=== PATIENT | female | born 1985 | race Caucasian/White ===

== ENCOUNTER → 2019-08-31 | Outpatient (CLI) | payer OTHER, SELFPAY ==
[2019-08-11 08:08] VITALS: BMI 27.4
== END | disposition home or self-care (01) ==
LOC: PSN 09:08
DX: R00.2 Palpitations (principal)
CPT/HCPCS: 93225; 93226

== ENCOUNTER 2020-05-01 08:39 | Outpatient (RCR) | payer OTHER, SELFPAY ==
[2019-08-11 08:08] VITALS: BMI 27.4
== END 2020-05-01 09:00 | disposition home or self-care (01) ==
LOC: EMPH 08:39
PROVIDERS: Visit Provider Family Medicine Geriatric Medicine
DX: Z11.59 Encounter for screening for other viral diseases (principal)
CPT/HCPCS: 87635; U0003

== ENCOUNTER 2020-05-31 19:00 | Outpatient (RCR) | payer OTHER, SELFPAY ==
[2019-08-11 08:08] VITALS: BMI 27.4
== END 2020-06-02 23:59 ==
LOC: EMPH 19:00
PROVIDERS: Visit Provider Family Medicine Geriatric Medicine
DX: Z03.818 Encounter for observation for suspected exposure to other biological agents ruled out (principal)
CPT/HCPCS: 87426

== ENCOUNTER 2020-06-27 10:10 | Outpatient (RCR) | payer OTHER, SELFPAY ==
[2019-08-11 08:08] VITALS: BMI 27.4
== END 2020-07-02 23:59 ==
LOC: EMPH 10:10
PROVIDERS: Referring Provider Family Medicine Geriatric Medicine; Visit Provider Family Medicine Geriatric Medicine
DX: Z03.818 Encounter for observation for suspected exposure to other biological agents ruled out (principal)
CPT/HCPCS: 87426

== ENCOUNTER 2020-07-19 11:01 | Outpatient (RCR) | payer OTHER, SELFPAY ==
[2019-08-11 08:08] VITALS: BMI 27.4
== END 2020-08-02 23:59 ==
LOC: EMPH 11:01
PROVIDERS: Referring Provider Family Medicine Geriatric Medicine; Visit Provider Family Medicine Geriatric Medicine
DX: Z03.818 Encounter for observation for suspected exposure to other biological agents ruled out (principal)
CPT/HCPCS: 87426

== ENCOUNTER 2020-08-20 08:45 | Outpatient (RCR) | payer OTHER, SELFPAY ==
[2019-08-11 08:08] VITALS: BMI 27.4
== END 2020-09-02 23:59 ==
LOC: EMPH 08:45
PROVIDERS: Referring Provider Family Medicine Geriatric Medicine; Visit Provider Family Medicine Geriatric Medicine
DX: Z03.818 Encounter for observation for suspected exposure to other biological agents ruled out (principal)
CPT/HCPCS: 87426

== ENCOUNTER 2020-09-30 08:00 | Outpatient (RCR) | payer OTHER, SELFPAY ==
[2019-08-11 08:08] VITALS: BMI 27.4
== END 2020-09-30 19:00 | disposition home or self-care (01) ==
LOC: EMPH 08:00
PROVIDERS: Referring Provider Family Medicine Geriatric Medicine; Visit Provider Family Medicine Geriatric Medicine
DX: Z03.818 Encounter for observation for suspected exposure to other biological agents ruled out (principal)
CPT/HCPCS: 87426

== ENCOUNTER → 2021-04-10 15:38 | Outpatient (CLI) | payer OTHER, SELFPAY ==
--- NOTE | 2021-04-10 15:46 | US_ITS ---
STUDY: ULTRASOUND OF THE FEMALE PELVIS - COMPLETE REASON FOR EXAM: Female, 36 years old. SPOTTING BETWEEN MENSES LMP: 03/25/2021. TECHNIQUE: Transabdominal and Transvaginal TECHNICAL QUALITY: Adequate. COMPARISON: None. FINDINGS: The uterus is retroverted and is in a midline position. The uterus measures 8.9 x 5.8 x 3.6 cm. There is a Nabothian cyst of the cervix. The endometrium measures 13.3 mm in thickness, and is hyperechoic. There is no demonstrated endometrial mass. There is no demonstrated myometrial mass. I.U.D. - The patient does not have an I.U.D. The right ovary is visualized. The right ovary measures 2.8 x 1.9 x 1.7 cm. There is no right ovarian cyst or ovarian mass. There is no visualized right adnexal mass or complex lesion. There is normal arterial and normal venous vascularity. The left ovary is visualized. The left ovary measures 3.2 x 2.4 x 2.0 cm. Within the left ovary there is a round anechoic structure consistent with a simple cyst measuring 1.9 x 1.0 x 1.6 cm. There is no visualized left adnexal mass or complex lesion. There is normal arterial and normal venous vascularity. There is minimal fluid in the cul-de-sac. The pre void volume of the bladder was 295 ml. US/Transvaginal Non- IMPRESSION: Unremarkable female pelvis ultrasound. Electronically Signed: Emilia Hernandez MD at 2:04 EDT , Service support ,
--- NOTE | 2021-04-10 15:46 | US_ITS ---
STUDY: ULTRASOUND OF THE FEMALE PELVIS - COMPLETE REASON FOR EXAM: Female, 36 years old. SPOTTING BETWEEN MENSES LMP: 03/25/2021. TECHNIQUE: Transabdominal and Transvaginal TECHNICAL QUALITY: Adequate. COMPARISON: None. FINDINGS: The uterus is retroverted and is in a midline position. The uterus measures 8.9 x 5.8 x 3.6 cm. There is a Nabothian cyst of the cervix. The endometrium measures 13.3 mm in thickness, and is hyperechoic. There is no demonstrated endometrial mass. There is no demonstrated myometrial mass. I.U.D. - The patient does not have an I.U.D. The right ovary is visualized. The right ovary measures 2.8 x 1.9 x 1.7 cm. There is no right ovarian cyst or ovarian mass. There is no visualized right adnexal mass or complex lesion. There is normal arterial and normal venous vascularity. The left ovary is visualized. The left ovary measures 3.2 x 2.4 x 2.0 cm. Within the left ovary there is a round anechoic structure consistent with a simple cyst measuring 1.9 x 1.0 x 1.6 cm. There is no visualized left adnexal mass or complex lesion. There is normal arterial and normal venous vascularity. There is minimal fluid in the cul-de-sac. The pre void volume of the bladder was 295 ml. US/Pelvic (Non ) IMPRESSION: Unremarkable female pelvis ultrasound. Electronically Signed: Emilia Hernandez MD at 2:04 EDT , Service support ,
== END ==
PROVIDERS: Referring Provider Nurse Practitioner Family; Visit Provider Nurse Practitioner Family
DX: N92.3 Ovulation bleeding (principal)
CPT/HCPCS: 76830; 76856

== ENCOUNTER 2021-11-09 00:37 | Emergency (ER) | payer OTHER, SELFPAY ==
[2021-11-09 00:39] VITALS: BP 155/91; PULSE 113; RESP 15; TEMP 36.3; O2SAT 97; BMI 31.4
--- NOTE | 2021-11-09 00:50 | EKG12_ITS ---
Test Reason : DYSRHYTHMIA Blood Pressure : / mmHG Vent. Rate : 115 BPM Atrial Rate : 115 BPM P-R Int : 138 ms QRS Dur : 070 ms QT Int : 318 ms P-R-T Axes : 069 056 023 degrees QTc Int : 439 ms Sinus tachycardia Nonspecific ST abnormality Abnormal ECG Confirmed by YESI VALERIO, KELLY ([id number]), digital editor KEY UMAÑA ([id number]) on 11/13/2021 10:30:56 AM Referred By: TERENCE Confirmed By:KELLY KEY MD
--- NOTE | 2021-11-09 00:50 | EX.ED.DYSGE1 ---
HPI History of Present Illness Chief Complaint: Palpitations Detail of Chief Complaint: Racing heart that started around 11 PM Informant: patient Narrative Narrative: Patient presents the emergency department complaint of racing heart that started around 11 PM. Patient states that she awoke from sleep with chills and noted that her house was somewhat cold. She took a hot shower and then noticed that her heart was racing and was going about 100 2040 bpm and she could feel some discomfort in her left side of her neck and some mild pressure in her chest. Patient states she had an appointment with her primary care physician today and her blood pressure was a little bit elevated 138/90 and normally she does not have elevated blood pressure. Patient also has been suffering for increased GERD symptoms so she started taking Carafate today. Patient otherwise denies recent illness although she had a head cold about 3 weeks ago and tested negative for Covid several times. Patient denies urinary symptoms. She denies recent travel or surgery. She denies history of PE or DVT. Prior similar symptoms: No PFSH PFS Medical History (Updated 11/09/21 @ 02:[address] Stormy Diallo, DO) Environmental allergies Home Medications cetirizine 10 mg capsule 10 mg PO DAILY 08/11/19 [History Last Taken Unknown] famotidine 40 mg tablet 40 mg PO DAILY 08/11/19 [History Last Taken Unknown] calcium acetate-magnesium carb 500 tab PO DAILY 11/09/21 [History Last Taken Unknown] cyanocobalamin-cobamamide [B12] jp SUBLINGUAL DAILY 11/09/21 [History Last Taken Unknown] melatonin 5 mg PO DAILY 11/09/21 [History Last Taken Unknown] Allergy/AdvReac Type Severity Reaction Status Date / Time codeine Allergy Unknown Verified 11/09/21 00:41 Social History (Updated 08/11/19 @ 09:06 by Cuong CARUSO, PA) Smoking Status: Never smoker ROS ROS ED Constitutional Constitutional ED: Reports systems reviewed and no addt'l complaints, except as documented; Denies body ache(s), change in weight or chills Eyes Eyes: Denies acute decrease in peripheral vision, change in vision, double vision or loss of vision ENT ENT ED: Reports none; Denies ear pain, lip swelling, loss taste/smell, neck pain, otalgia or sore throat Cardiovascular Cardiovascular: Reports none, chest pain and racing heartbeat; Denies abdominal pain, chest pain with activity, leg edema, lightheadedness, palpitations, rapid heart rate or syncope Respiratory/Chest Respiratory/Chest: Reports none; Denies change in mental status, dry cough, dyspnea, hemoptysis, shortness of breath at rest or shortness of breath with exertion Gastrointestinal Gastrointestinal: Reports none; Denies abdominal pain, change in stool character, diarrhea, hematemesis, hematochezia, melena, rectal bleeding or vomiting Genitourinary Genitourinary ED: Reports none; Denies abdominal discomfort, anuria, dysuria, genital pain or polyuria Musculoskeletal Musculoskeletal: Reports none; Denies arthralgias, back pain, difficulty walking, extremity pain, muscle weakness or myalgias Integumentary Reports none; Denies abscess or rash Neurologic Neurologic: Reports none; Denies abnormal gait, confusion, focal weakness, frequent falls, headache(s), loss of vision, numbness, paresthesias, radicular pain, vertigo or weakness Psychiatric Psychiatric: Reports systems reviewed and no addt'l complaints, except as documented and none; Denies behavioral changes, confusion, difficulty concentrating, hallucinations, suicidal ideation, tactile hallucinations or visual hallucinations Endocrine Endocrinology: Denies none, cold intolerance, excessive sweating, fatigue or heat intolerance Hematologic/Lymphatic Hematologic/Lymphatic: Reports none; Denies anemia, easy bleeding or easy bruising Allergic/Immunologic Allergic/Immunologic ED: Denies as per HPI, none, lip swelling, mouth swelling, throat swelling, tongue swelling or hives EXAM Physical Exam Const Vital Signs: 11/09/21 00:39 11/09/21 00:41 11/09/21 02:03 Temperature 97.3 F L Temperature Source Temporal Pulse Rate 113 H 68 Respiratory Rate 15 16 Respiratory Effort Normal Non-Labored Blood Pressure 155/91 H 121/86 H Blood Pressure Mean 112 97 Pulse Ox 97 98 Oxygen Delivery Method Room Air Room Air Positive well nourished and well developed General Appearance ED: well developed and NAD HEENT Reports TM's clear and moist mucous membranes normocephalic and atraumatic; Negative for trauma or tenderness Tympanic Membrane ED: Yes TM's clear Eyes PERRL and EOMs intact bilaterally General Eye ED: Negative for pale conjunctiva or scleral icterus Neck no lymphadenopathy, supple and no JVD General: Negative for tenderness Chest Wall inspection of chest normal and palpation of chest normal Chest: Negative for tenderness Resp normal respiratory effort and clear to auscultation bilaterally Effort and Inspection: Negative for respiratory distress or pain with movement Auscultation: Negative for rhonchi, wheezes or diminished lung sounds Cardio regular rhythm, S1 normal heart sound, S2 normal heart sound and no murmurs Rate: tachycardic Peripheral Pulses: pulses 2+ throughout GI normal to inspection, nondistended, normoactive bowel sounds, soft to palpation, non-tender, non-distended and no masses Back/Spine no CVA tenderness and no thoracic nor lumbar tenderness Extremity normal to inspection General Extremety ED: Negative for edema General Extremity: Negative for edema Neuro oriented x3, CN's II-XII intact bilaterally, no sensory deficits noted and gait normal Sensorium / Orientation: awake, alert, oriented to person, oriented to place and oriented to time Motor Exam: strength 5/5 throughout and strength abnormal Psych mental status grossly normal Skin no rashes or lesions noted and no wounds MDM MDM MDM Narrative Medical decision making narrative: Line established on arrival. Patient placed on a pvc monitor. EKG obtained showed a sinus tachycardia with a rate of 116 bpm. Blood work was significant for low potassium of 3.1 for which I did give her 40 mEq of potassium chloride p.o. Patient also noted to have an elevated TSH so I suspect some hypothyroidism. D-dimer was normal. Troponin was normal. Urinalysis and hCG were normal. At this point recommended she follow-up with her primary care physician regarding the thyroid findings as she may need more investigation and possible medical treatment for hypothyroidism. I also asked that she have her potassium repeated again in about a week. Etiology of her tachycardia at this point unclear. I feel likely this is a sinus tachycardia and not a dangerous rhythm. Lab Data Attestation: I reviewed the patient's lab results. Labs: Laboratory Results - last 24 hr 11/09/21 11/09/21 11/09/21 00:52 00:52 00:52 WBC 7.9 RBC 4.72 Hgb 14.4 Hct 41.7 MCV 88.3 MCH 30.5 MCHC 34.5 RDW Std Deviation 40.5 RDW Coeff of Kelvin 12.3 Plt Count 218 MPV 11.0 Immature Gran % (Auto) 0.400 Neut % (Auto) 60.5 Lymph % (Auto) 29.1 Menard % (Auto) 6.9 Eos % (Auto) 2.6 Baso % (Auto) 0.5 Absolute Neuts (auto) 4.8 Absolute Lymphs (auto) 2.31 Nucleated RBC % 0 D-Dimer Quant (PE/DVT) 0.42 Sodium 136 Potassium 3.1 L Chloride 105 Carbon Dioxide 23.0 Anion Gap 8 BUN 11 Creatinine 0.87 Estim Creat Clear Calc 81.99 Est GFR (MDRD) Af Amer 96 Est GFR (MDRD) Non-Af 79 BUN/Creatinine Ratio 12.7 Glucose 107 H Calcium 9.6 Troponin I High Sens 8 TSH Serum , Qual Urine Color Urine Clarity Urine pH Ur Specific [place] Urine Protein Urine Glucose (UA) Urine Ketones Urine Occult Blood Urine Nitrite Urine Bilirubin Urine Urobilinogen Ur Leukocyte Esterase Urine RBC Urine WBC Ur Squamous Epith Cells Urine Bacteria Urine Mucus 11/09/21 11/09/21 11/09/21 00:52 00:52 01:00 WBC RBC Hgb Hct MCV MCH MCHC RDW Std Deviation RDW Coeff of Kelvin Plt Count MPV Immature Gran % (Auto) Neut % (Auto) Lymph % (Auto) [place]ard % (Auto) Eos % (Auto) Baso % (Auto) Absolute Neuts (auto) Absolute Lymphs (auto) Nucleated RBC % D-Dimer Quant (PE/DVT) Sodium Potassium Chloride Carbon Dioxide Anion Gap BUN Creatinine Estim Creat Clear Calc Est GFR (MDRD) Af Amer Est GFR (MDRD) Non-Af BUN/Creatinine Ratio Glucose Calcium Troponin I High Sens TSH 9.23 H Serum , Qual NEGATIVE Urine Color Yellow Urine Clarity Clear Urine pH 6.5 Ur Specific [place] 1.005 Urine Protein Negative Urine Glucose (UA) Normal Urine Ketones 15 H Urine Occult Blood Negative Urine Nitrite Negative Urine Bilirubin Negative Urine Urobilinogen Normal Ur Leukocyte Esterase Negative Urine RBC 0 SEEN Urine WBC 0 SEEN Ur Squamous Epith Cells 0-5 SEEN Urine Bacteria 1+ Urine Mucus 0 SEEN EKG Initial EKG: Attestation: I personally reviewed and interpreted this EKG as follows: Comments: Sinus tachycardia with a ventricular rate of [address] changes Discharge Plan Triage Chief Complaint: Palpitations ED Provider: Stormy Diallo Dx/Rx/DC Orders Clinical Impression: Atrial tachycardia, Hypothyroidism, Acute hypokalemia Instructions: ED Hypothyroidism, ED Tachycardia: PAT Prescriptions: No Action famotidine [Pepcid] 40 mg tablet 40 mg PO DAILY RF: 0 Zyrtec 10 mg capsule 10 mg PO DAILY RF: 0 calcium acetate-magnesium carb 300-300 mg Tablet 500 tab PO DAILY RF: 0 melatonin 5 mg Tablet 5 mg PO DAILY RF: 0 B12 5,000-100 mcg Lozenge SUBLINGUAL DAILY RF: 0 Referrals: CHUCKY MCNAMARA [Other] Activity Restrictions/Additional Instructions: See your primary care physician within next 5 to 7 days to have a repeat potassium level and further evaluation for hypothyroidism Disposition Disposition: Home, Self Care
[2021-11-09 01:06] LABS: Mucous, Urine 0 SEEN /hpf (<or=2+); Red Blood Cells-Urine 0 SEEN /hpf (0-5); White Blood Cells 0 SEEN /hpf (0-5)
[2021-11-09 01:07] LABS: Absolute Lymphocyte Count 2.31 X10^3/uL (0.83-4.51); Absolute Neutrophil Count 4.8 X10^3/uL (2.0-7.7); Basophil# 0.04 X10^3/uL; Basophil% 0.5 % (0-1); Eosinophil# 0.21 X10^3/uL; Eosinophils% 2.6 % (0-5); Hematocrit 41.7 % (37-47); Hemoglobin 14.4 g/dL (12.0-15.0); Lymphocyte # 2.31 X10^3/ul (0.83-4.51); Lymphocyte % 29.1 % (19-41); Mean Corp Hgb Conc 34.5 g/dL (32-36); Mean Corpuscular Hgb 30.5 pg (27.0-32.0); Mean Corpuscular Volume 88.3 fL (81-99); Monocyte# 0.55 X10^3/uL; Monocyte% 6.9 % (0-10); NRBC Flagged by Analyzer 0 % (0-5); Neutrophil % 60.5 % (47-70); Platelet Count 218 K/mm3 (150-450); RBC Distribution Width CV 12.3 % (11.6-14.6); RBC Distribution Width SD 40.5 fl (35.1-43.9); Red Blood Count 4.72 M/mm3 (4.2-5.4); White Blood Count 7.9 K/mm3 (4.4-11.0)
[2021-11-09] MEDS: 0.9% Normal Saline 1,000 ML 150 ML IV (01:07)
[2021-11-09 01:09] LABS: Color, Urine Yellow (Yellow); Glucose, Dipstick Normal (Normal); Ketone-Dipstick 15 mg/dl (Negative); Leukocyte Esterase-Dipstick Negative /ul (Negative); Nitrite-Dipstick Negative (Negative); Occult Blood-Urine Negative /ul (Negative); Protein-Dipstick Negative (Negative); Specific Gravity, Urine 1.005 (1.002-1.030); Urine Bilirubin Dipstick Negative (Negative); Urine Clarity Clear (Clear); Urine Urobilinogen Normal (Normal); Urine pH 6.5 (5.0 - 8.0)
[2021-11-09 01:19] LABS: D-Dimer Quantitative (DVT/PE) 0.42 FEU/ug/m (0.27-0.49)
[2021-11-09 01:25] LABS: Anion Gap 8 (5-15); BUN 11 mg/dL (7-18); BUN/Creat Ratio 12.7 RATIO (10-20); Calcium,Total 9.6 mg/dL (8.5-10.1); Chloride 105 mmol/L (98-107); Creatinine, Serum 0.87 mg/dL (0.55-1.02); EST Glomerular Filtration Rate 79 mL/min (>60); Est Glom Filt Rate - Afr Amer 96 mL/min (>60); Estimated Creatinine Clearance 81.99 ml/min; Glucose 107 mg/dL (74-106); Potassium 3.1 mmol/L (3.5-5.1); Sodium Level 136 mmol/L (136-145); Troponin-I HS 8 pg/mL (3.0-54.0)
[2021-11-09 01:36] LABS: Bacteria 1+ /hpf (None Seen); Squamous Epithelial Cells - UA 0-5 SEEN /hpf (5-10)
[2021-11-09 01:37] LABS: Internal QC Validated? YES +Cl - CLEAR BKGD; Pregnancy, Serum, hCG Quali. NEGATIVE Negative
[2021-11-09 01:53] LABS: Thyroid Stim Hormone (TSH) 9.23 uIU/mL (0.358-3.74)
[2021-11-09 02:03] VITALS: BP 121/86; PULSE 68; RESP 16; O2SAT 98
[2021-11-09] MEDS: Potassium Chloride Oral Tablet 20 MEQ 40 MEQ PO (02:04)
[2021-11-09 02:13] VITALS: BP 121/66; PULSE 101; RESP 18; O2SAT 97
== END 2021-11-09 02:15 | disposition home or self-care (01) ==
PROVIDERS: Emergency Provider Emergency Medicine; Visit Provider Emergency Medicine
DX: I47.1 Supraventricular tachycardia (principal); E03.9 Hypothyroidism, unspecified; E87.6 Hypokalemia
CPT/HCPCS: 80048; 81001; 84443; 84484; 84703; 85025; 85379; 93005; 96360; 96361; 99284; J7030; A4216

== ENCOUNTER → 2021-11-12 10:42 | Outpatient (CLI) | payer OTHER, SELFPAY ==
[2021-11-12 11:50] LABS: Thyroid Stim Hormone (TSH) 2.59 uIU/mL (0.358-3.74)
[2021-11-12 11:53] LABS: Vitamin B12 > 2000 pg/mL (211-911); Vitamin D,25 Hydroxy 71.6 ng/mL
== END ==
DX: R00.2 Palpitations (principal); Z13.21 Encounter for screening for nutritional disorder; Z13.29 Encounter for screening for other suspected endocrine disorder
CPT/HCPCS: 36415; 82306; 82607; 83735; 84443

== ENCOUNTER → 2021-12-04 | Outpatient (CLI) | payer OTHER, SELFPAY ==
[2021-12-04 12:12] LABS: CRP < 2.90 mg/L (0.0-3.0); Potassium 3.8 mmol/L (3.5-5.1)
[2021-12-04 12:18] LABS: Erythrocyte Sedimentation Rate 11 mm/hr (0-30)
[2021-12-05 15:09] LABS: Anti-Centromere B Ab <0.2 AI (0.0-0.9); Anti-Chromatin <0.2 AI (0.0-0.9); Anti-Jo <0.2 AI (0.0-0.9); Anti-Scleroderma-70 AB <0.2 AI (0.0-0.9); RNP Ab <0.2 AI (0.0-0.9); SJOGREN'S Anti-SS-A test < 0.2 AI (0.0-0.9); SJOGREN'S Anti-SS-B test < 0.2 AI (0.0-0.9); Smith Ab <0.2 AI (0.0-0.9)
[2021-12-05 17:19] LABS: Anti-dsDNA Ab 1 IU/mL (0-9)
[2021-12-06 16:19] LABS: Endomysial Antibody IgA Positive (Negative); Immunoglobulin A 135 mg/dL (87-352)
[2021-12-06 20:07] LABS: Gastrin, Serum 73 pg/mL (0-115); t-Transglutaminase IgA 8 U/mL (0-3)
== END | disposition home or self-care (01) ==
PROVIDERS: Referring Provider Nurse Practitioner Adult Health; Visit Provider Nurse Practitioner Adult Health
DX: K52.9 Noninfective gastroenteritis and colitis, unspecified (principal); K21.9 Gastro-esophageal reflux disease without esophagitis; R10.9 Unspecified abdominal pain
CPT/HCPCS: 36415; 82784; 82941; 83516; 84132; 85652; 86140; 86225; 86235; 86255

== ENCOUNTER → 2021-12-10 | Outpatient (CLI) | payer OTHER, SELFPAY ==
[2021-12-12 02:07] LABS: H. PYLORI STOOL AG Negative (Negative)
[2021-12-12 10:46] LABS: Giardia Lamblia, Stool EIA Negative (Negative)
[2021-12-13 13:41] LABS: Calprotectin, Stool 33 ug/g (0-120)
== END | disposition home or self-care (01) ==
LOC: LABSPEC 08:16
PROVIDERS: Referring Provider Nurse Practitioner Adult Health; Visit Provider Nurse Practitioner Adult Health
DX: K52.9 Noninfective gastroenteritis and colitis, unspecified (principal); R10.9 Unspecified abdominal pain
CPT/HCPCS: 83630; 83993; 87177; 87209; 87329; 87493; 87506

== ENCOUNTER → 2021-12-13 | Outpatient (CLI) | payer OTHER, SELFPAY ==
--- NOTE | 2021-12-13 15:48 | CT_ITS ---
STUDY: CT ABDOMEN AND PELVIS WITH CONTRAST REASON FOR EXAM: Female, 36 years old. diarrea, abd pain RADIATION DOSAGE (If Supplied By Facility): CTDIvol = ( 13.93 ) mGy, DLP = ( 874.36 ) mGycm TECHNIQUE: Transaxial images were obtained from the dome of the diaphragm to the symphysis pubis without oral contrast. Oral and amp; IV Readi-CAT and amp; 100mL Isovue-300 was administered. Sagittal and coronal images were reconstructed. Individualized dose optimization techniques were used for this CT. COMPARISON: None. FINDINGS: The visualized lung bases are unremarkable. The visualized portions of the heart are within normal limits. Normal liver. Normal gallbladder and extrahepatic biliary system. Normal spleen. Normal pancreas. There is mild nodularity of the right adrenal gland measuring 1.75 cm. Normal right kidney. Normal left kidney. Normal visualized stomach. Normal small intestine. Normal colon. The appendix is visualized and appears normal. Normal abdominal aorta. Normal inferior vena cava. Normal retroperitoneum. Normal urinary bladder. Normal abdominal wall. Normal osseous structures. CT/Abdomen/Pelvis WITH Contrast IMPRESSION: Normal enhanced CT of the abdomen and pelvis. Electronically Signed: Amol Bledsoe MD at 23:05 EDT ,
== END | disposition home or self-care (01) ==
PROVIDERS: Referring Provider Nurse Practitioner Adult Health; Visit Provider Nurse Practitioner Adult Health
DX: K21.9 Gastro-esophageal reflux disease without esophagitis (principal); K52.9 Noninfective gastroenteritis and colitis, unspecified; R10.9 Unspecified abdominal pain
CPT/HCPCS: 74177; Q9967

== ENCOUNTER → 2022-02-14 | Outpatient (CLI) | payer OTHER, SELFPAY ==
--- NOTE | 2022-02-14 15:50 | CT_ITS ---
EXAM: CT ABDOMEN WITHOUT AND WITH INTRAVENOUS CONTRAST CLINICAL INDICATION: ABN CT OF ABDOMEN TECHNIQUE: Helically acquired images were obtained of the abdomen without and with intravenous contrast. This CT exam was performed using one or more of the following dose reduction techniques: automated exposure control, adjustment of the mA and/or kV according to patient size, and/or use of iterative reconstruction technique. This report was created using [employer] report generation technology. CONTRAST: IV 100mL Isovue-300 RADIATION DOSE: CTDIvol = 29.46 mGy, DLP = 1812.95 mGy-cm. COMPARISON: 12/13/2021. EXAM: CT ABDOMEN WITHOUT AND WITH INTRAVENOUS CONTRAST CLINICAL INDICATION: ABN CT OF ABDOMEN TECHNIQUE: Helically acquired images were obtained of the abdomen without and with intravenous contrast. This CT exam was performed using one or more of the following dose reduction techniques: automated exposure control, adjustment of the mA and/or kV according to patient size, and/or use of iterative reconstruction technique. This report was created using [employer] report generation technology. CONTRAST: IV 100mL Isovue-300 RADIATION DOSE: CTDIvol = 29.46 mGy, DLP = 1812.95 mGy-cm. COMPARISON: 12/13/2021. FINDINGS: LOWER THORAX: Unremarkable. Lung bases are clear. No cardiomegaly. No significant pericardial effusion. LIVER: See below. GALLBLADDER AND BILE DUCTS: Unremarkable. No calcified gallstones. No gallbladder distention or wall edema. No intra- or extrahepatic biliary ductal dilation. PANCREAS: Unremarkable. No focal cystic or solid mass. SPLEEN: Unremarkable. Normal size without focal cystic or solid mass. ADRENALS: Low-density right adrenal mass measuring 2 x 1.0 x 2.6 cm. It measures -12 Hounsfield units on noncontrast images, 30 Hounsfield units on portal venous phase images, and 2 Hounsfield units on delayed images for a 66% absolute washout. Low-density left adrenal mass that measures 1.3 x 1.2 x 1.6 cm. It measures -12 Hounsfield units on noncontrast images, 28 Hounsfield units on portal venous phase images, and 4 Hounsfield units on delayed images for a 60% absolute washout. KIDNEYS AND URETERS: Unremarkable. Normal renal size and position. No hydronephrosis. STOMACH AND BOWEL: Unremarkable. No stomach or bowel distention. No focal inflammatory change. INTRAPERITONEAL SPACE: Unremarkable. No ascites or other fluid collection. No free air. BONES/JOINTS: Unremarkable. No suspicious lytic or blastic abnormality. SOFT TISSUES: Unremarkable. No discrete abdominal wall hernia. VASCULATURE: See above. LYMPH NODES: No enlarged lymph nodes. CT/Abdomen W/WO IV Contrast IMPRESSION: Bilateral adrenal adenomas unchanged since previous exam. No follow-up imaging required. Electronically Signed: Yonas Panchal MD at 17:26 EDT ,
== END | disposition home or self-care (01) ==
LOC: CT 15:46
DX: D35.01 Benign neoplasm of right adrenal gland (principal); D35.02 Benign neoplasm of left adrenal gland
CPT/HCPCS: 74170; Q9967

== ENCOUNTER 2022-03-06 09:05 | Day surgery (SDC) | payer OTHER, SELFPAY ==
[2022-03-06] VITALS (7 sets, daily range): BP systolic 95–112; BP diastolic 66–88; PULSE 54–74; RESP 16–18; TEMP 36.6–37.1; O2SAT 99–100; BMI 29.5
--- NOTE | 2022-03-06 09:11 | PCM.HP.BLA ---
History and Physical Date of Admission: 03/06/22 KAITLIN PATTON, is a 36 F who presents to the office today for 6-week follow-up GERD, abdominal pain, diarrhea.? We did a biochemical and stool work-up, and it turns out she has celiac disease.? She is doing better since going gluten-free.? She is significantly less bloated.? Not having the abdominal pain like she used to.? No longer having the pain that radiates through to the back.? Much less diarrhea than she used to.? She even had 1 week of normal BMs.? She really did not get overt heartburn routinely, she would occasionally burp up food, but she does have some heartburn this week which she attributes to starting an iron supplement because her ferritin is low.? She was already taking a vitamin.? She also notes her blood pressure is better.? She had a Holter monitor for palpitations.? We did a CT of her abdomen and pelvis for her for her GI complaints, incidental finding of mild nodularity of the right adrenal gland measuring 1.75 cm. Her PCP Lula Virk, LOC[facility] Coats is working this up. She is taking pantoprazole bid twice daily. She is scheduled for EGD and colonoscopy with Dr. Cruz in March.? GERD began after the of her daughter 7 years ago; it was a difficult prolonged labor; afterwards she had sudden severe chest pain and acid reflux.? Her symptoms were controlled with Zantac before it was taken off the market.??For the past 1 to 2 years she had been having daily loose stool in the morning. Treated for esophagitis or gastritis about 7 yrs ago after having EGD. 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 She is with a 4 yr old son and 7 yr old daughter. 12/13/2021 CT abdomen the pelvis with oral and IV contrast There is mild nodularity of the right adrenal gland measuring 1.75 cm. ROS Const Constitutional: Positive for headache(s); No fatigue ENT ENT: Positive for headache(s); No difficulty swallowing Gastro GI: Positive for bloating, constipation, diarrhea and excessive flatus; No abdominal pain, belching, change in bowel habits, change in stool character, coffee ground emesis, cramping, heartburn, difficulty swallowing, feeling full early, incontinent of stools, Vomiting blood/hematemesis, Blood in stool, loose stools, Black,tarry stools, nausea/dyspepsia, pain with swallowing, vomiting or other Musc Musculoskeletal: Positive for back pain; No joint pain Skin Skin: No yellowing of the eye or itchy eyes Neuro Neurology: Positive for headache(s) Psych Psychiatric: No anxiety and No depression Endo Endocrine: No fatigue Aller/Imm Allergy/Immunologic: No itchy eyes Jarred/Lymp Hematologic/Lymphatic: No easy bleeding or easy bruising Exam Const General: cooperative, healthy appearing, well developed and well groomed Quality Reporting Tobacco Screening ([facility] 138) Smoking Status: Never smoker Assessment and Plan Assessment and Plan (1) Celiac disease: ?Status:?Acute ?Plan: Continue gluten-free diet, expect continued improvement in GI symptoms Keep appointment for EGD and colonoscopy in March with follow-up 2 weeks after that (2) Gastroesophageal reflux disease: ?Status:?Acute ?Plan: Continue PPI therapy for now Keep appointment for EGD and colonoscopy in March with follow-up 2 weeks after that I have re-examined the patient. There are no clinical changes since date of exam.
[2022-03-06 09:32] LABS: Internal QC Validated? YES +Cl - CLEAR BKGD; Pregnancy, Urine Negative Negative
[2022-03-06] MEDS: Lactated Ringers 1,000 ML 15 ML IV (09:36)
--- NOTE | 2022-03-06 10:15 | EGD_PTH ---
PATIENT: RANCHO PATTON LOC: EN U#:[id number] AGE/SX: 37/F ROOM: RE03/06/[address]: Dr. Godfrey Cruz DO : 1985 BED: DIS: 03/06/2022 SPEC #: [id number] RECD: 03/06/22 12:37 STATUS: TISH YOSHI #: [id number] AARON: 03/06/22 10:[address]: Godfrey Cruz DEPT: SURGICAL PATHOLOGY RECD BY: Kathleen Fuentes Tissues: A - Duodenum, NOS B - Esophagus, NOS C - Ileum, NOS D - Sigmoid colon biopsy Procedures: Surgery Specimen Level IV HEADER OPERATION: Colonoscopy, [place] biopsy PRE-OP DIAGNOSIS: Celiac disease, GERD TISSUE SUBMITTED: A ? Duodenum biopsy, B ? Distal esophagus biopsy, C ? Terminal ileum biopsy, D ? Sigmoid biopsy MICROSCOPIC DIAGNOSIS A. Duodenum, biopsy: Minimal nonspecific chronic inflammation. B. Distal esophagus, biopsy: Gastroesophageal junctional mucosa with chronic inflammation. No evidence of goblet cell metaplasia. See comment. C. Terminal ileum, biopsy: Focal acute ileitis. See comment. D. Sigmoid colon, biopsy: No pathologic change. AM:sarina 03/07/2022 COMMENT B. Alcian blue/PAS stain with matched control supports the above diagnosis. C. Rare cryptitis and focal crypt abscesses are present. No fissuring ulcers, transmural lymphoid aggregates or granulomas are seen. Clinical correlation is suggested. MICROSCOPIC DESCRIPTION Slides are reviewed. GROSS DESCRIPTION A - Received in fixative is one container labeled with the patient's name and designated duodenum biopsy. The specimen consists of multiple irregular fragments of light colbert soft tissue that in aggregate measure 1.5 x 0.2 x 0.1 cm. The specimen is totally submitted in one cassette. B - Received in fixative is one container labeled with the patient's name and designated distal esophagus biopsy. The specimen consists of two irregular fragments of light colbert soft tissue that in aggregate measure 0.6 x 0.3 x 0.1 cm. The specimen is totally submitted in one cassette. C - Received in fixative is one container labeled with the patient's name and designated terminal ileum biopsy. The specimen consists of two irregular fragments of light colbert soft tissue that in aggregate measure 0.8 x 0.4 x 0.1 cm. The specimen is totally submitted in one cassette. D - Received in fixative is one container labeled with the patient's name and designated sigmoid biopsy. The specimen consists of multiple irregular fragments of light colbert soft tissue that in aggregate measure 1.2 x 0.2 x 0.1 cm. The specimen is totally submitted in one cassette. / SJ:rg 03/06/2022 TC:2 CPT: 61185 x4
--- NOTE | 2022-03-06 10:55 | OP.EGD_ITS ---
Patient Name: Tatiana Arredondo Procedure Date: 03/06/2022 10:22 AM Date of : 1985 Age: 37 Procedure: Upper GI endoscopy Indications: Epigastric abdominal pain, Functional Dyspepsia Providers: Godfrey Cruz DO Medicines: Monitored Anesthesia Care Patient Profile: This is a 37 year old female. Refer to note in patient chart for documentation of history and physical. Patient has symptoms of chronic abdominal cramping and chronic global abdominal pain. Complications: No immediate complications. Procedure: Pre-Anesthesia Assessment: - Prior to the procedure, a History and Physical was performed, and patient medications and allergies were reviewed. The risks and benefits of the procedure and the sedation options and risks were discussed with the patient. All questions were answered and informed consent was obtained. Patient identification and proposed procedure were verified by the physician in the pre-procedure area. Mental Status Examination: alert and oriented. Airway Examination: normal oropharyngeal airway and neck mobility. Respiratory Examination: clear to auscultation. CV Examination: normal. Prophylactic Antibiotics: The patient does not require prophylactic antibiotics. Prior Anticoagulants: The patient has taken no previous anticoagulant or antiplatelet agents. After reviewing the risks and benefits, the patient was deemed in satisfactory condition to undergo the procedure. The anesthesia plan was to use moderate sedation / analgesia (conscious sedation). Immediately prior to administration of medications, the patient was re-assessed for adequacy to receive sedatives. The heart rate, respiratory rate, oxygen saturations, blood pressure, adequacy of pulmonary ventilation, and response to care were monitored throughout the procedure. The physical status of the patient was re-assessed after the procedure. After obtaining informed consent, the endoscope was passed under direct vision. Throughout the procedure, the patient's blood pressure, pulse, and oxygen saturations were monitored continuously. The colonoscope was introduced through the mouth, and advanced to the second part of duodenum. The upper GI endoscopy was accomplished without difficulty. The patient tolerated the procedure well. Scope In: 10:32:13 AM Scope Out: 10:36:57 AM Total Procedure Duration Time 0 hours 4 minutes 44 seconds Findings: The Z-line was irregular and was found 36 cm from the incisors. Biopsies were taken with a cold forceps for histology. Verification of patient identification for the specimen was done. Estimated blood loss was minimal. Patchy mildly erythematous mucosa without bleeding was found in the gastric body. Biopsies were taken with a cold forceps for histology. Verification of patient identification for the specimen was done. Estimated blood loss was minimal. Scattered moderate inflammation characterized by congestion (edema), erosions, erythema and friability was found in the duodenal bulb, in the first portion of the duodenum, in the second portion of the duodenum and in the third portion of the duodenum. Biopsies were taken with a cold forceps for histology. Verification of patient identification for the specimen was done. Estimated blood loss was minimal. Impression: - Z-line irregular, 36 cm from the incisors. Biopsied. - Erythematous mucosa in the gastric body. Biopsied. - Duodenitis. Biopsied. Recommendation: - Discharge patient to home. - Resume previous diet. - Continue present medications. - Await pathology results. - Repeat upper endoscopy in 1 year for surveillance. Procedure Code(s): --- Professional --- 86295, Esophagogastroduodenoscopy, flexible, transoral; with biopsy, single or multiple CPT copyright 2017 [employer]. All rights reserved. The codes documented in this report are preliminary and upon public improvement inspector review may be revised to meet current compliance requirements. Godfrey Cruz DO 03/06/2022 10:55:03 AM This report has been signed electronically. Number of Addenda: 1 Note Initiated On: 03/06/2022 10:22 AM Addendum Number: 1 Addendum Date: 05/08/2022 6:27:56 AM MAC was used as sedation for this procedure. Godfrey Cruz DO 05/08/2022 6:28:00 AM This report has been signed electronically.
--- NOTE | 2022-03-06 10:55 | OP.CCLET_ITS ---
05/08/2022 Lady Saunders Re : Upper GI endoscopy procedure for Tatiana Arredondo Dear Nicky This procedure was performed on March. My impressions and recommendations are as follows: Impressions : - Z-line irregular, 36 cm from the incisors. Biopsied. - Erythematous mucosa in the gastric body. Biopsied. - Duodenitis. Biopsied. Recommendations : - Discharge patient to home. - Resume previous diet. - Continue present medications. - Await pathology results. - Repeat upper endoscopy in 1 year for surveillance. My findings are described in the full procedure note, which is enclosed. If I can be of further assistance, please feel free to contact me at . Sincerely, Godfrey Cruz, 03/06/2022 10:55:03 AM This report has been signed electronically.
--- NOTE | 2022-03-06 10:59 | OP.CCLET_ITS ---
05/08/2022 Lady Saunders Re : Colonoscopy procedure for Tatiana Arredondo Dear Nicky This procedure was performed on March. My impressions and recommendations are as follows: Impressions : - Congested mucosa in the recto-sigmoid colon and in the sigmoid colon. Biopsied. - A single (solitary) ulcer in the terminal ileum. Biopsied. Recommendations : - Discharge patient to home. - Resume previous diet. - Continue present medications. - Await pathology results. - Repeat colonoscopy in 5 years for surveillance. - Return to GI office. My findings are described in the full procedure note, which is enclosed. If I can be of further assistance, please feel free to contact me at . Sincerely, Godfrey Cruz, 03/06/2022 10:58:10 AM This report has been signed electronically.
--- NOTE | 2022-03-06 10:59 | OP.COLON_ITS ---
Patient Name: Tatiana Arredondo Procedure Date: 03/06/2022 10:37 AM Date of : 1985 Age: 37 Procedure: Colonoscopy Indications: Clinically significant diarrhea of unexplained origin Providers: Godfrey Cruz DO Medicines: Monitored Anesthesia Care Patient Profile: This is a 37 year old female. Refer to note in patient chart for documentation of history and physical. Patient has symptoms of chronic abdominal cramping and chronic global abdominal pain. Last Colonoscopy: date unknown. Unable to locate last colonoscopy report. Complications: No immediate complications. Procedure: Pre-Anesthesia Assessment: - Prior to the procedure, a History and Physical was performed, and patient medications and allergies were reviewed. The risks and benefits of the procedure and the sedation options and risks were discussed with the patient. All questions were answered and informed consent was obtained. Patient identification and proposed procedure were verified by the physician in the pre-procedure area. Mental Status Examination: alert and oriented. Airway Examination: normal oropharyngeal airway and neck mobility. Respiratory Examination: clear to auscultation. CV Examination: normal. Prophylactic Antibiotics: The patient does not require prophylactic antibiotics. Prior Anticoagulants: The patient has taken no previous anticoagulant or antiplatelet agents. After reviewing the risks and benefits, the patient was deemed in satisfactory condition to undergo the procedure. The anesthesia plan was to use moderate sedation / analgesia (conscious sedation). Immediately prior to administration of medications, the patient was re-assessed for adequacy to receive sedatives. The heart rate, respiratory rate, oxygen saturations, blood pressure, adequacy of pulmonary ventilation, and response to care were monitored throughout the procedure. The physical status of the patient was re-assessed after the procedure. After I obtained informed consent, the scope was passed under direct vision. Throughout the procedure, the patient's blood pressure, pulse, and oxygen saturations were monitored continuously. The colonoscope was introduced through the anus and advanced to the terminal ileum. The colonoscopy was performed without difficulty. The patient tolerated the procedure well. The quality of the bowel preparation was good. Scope In: 10:38:53 AM Scope Withdrawal Time 0 hours 8 minutes 26 seconds Scope Out: 10:49:31 AM Total Procedure Duration Time 0 hours 10 minutes 38 seconds Findings: The perianal and digital rectal examinations were normal. An area of mildly congested mucosa was found in the recto-sigmoid colon and in the sigmoid colon. Biopsies were taken with a cold forceps for histology. Verification of patient identification for the specimen was done. Estimated blood loss was minimal. The terminal ileum contained a single (solitary) four mm ulcer. No bleeding was present. No stigmata of recent bleeding were seen. Biopsies were taken with a cold forceps for histology. Verification of patient identification for the specimen was done. Estimated blood loss was minimal. Impression: - Congested mucosa in the recto-sigmoid colon and in the sigmoid colon. Biopsied. - A single (solitary) ulcer in the terminal ileum. Biopsied. Recommendation: - Discharge patient to home. - Resume previous diet. - Continue present medications. - Await pathology results. - Repeat colonoscopy in 5 years for surveillance. - Return to GI office. Procedure Code(s): --- Professional --- 03729, Colonoscopy, flexible; with biopsy, single or multiple CPT copyright 2017 [employer]. All rights reserved. The codes documented in this report are preliminary and upon manager progressive care review may be revised to meet current compliance requirements. Godfrey Cruz DO 03/06/2022 10:58:10 AM This report has been signed electronically. Number of Addenda: 1 Note Initiated On: 03/06/2022 10:37 AM Addendum Number: 1 Addendum Date: 05/08/2022 6:28:08 AM MAC was used as sedation for this procedure. Godfrey Cruz DO 05/08/2022 6:28:14 AM This report has been signed electronically.
== END 2022-03-06 11:30 | disposition home or self-care (01) ==
LOC: EN 09:06 → AC 09:07
PROVIDERS: Anesthesiology; Visit Provider Internal Medicine Gastroenterology
PROC: 0DJD8ZZ Inspection of Lower Intestinal Tract, Via Natural or Artificial Opening Endoscopic (ICD-10-PCS; CPT 45378; principal; 2022-03-06 10:10)
DX: K52.9 Noninfective gastroenteritis and colitis, unspecified (principal); K63.3 Ulcer of intestine; K30 Functional dyspepsia; K21.9 Gastro-esophageal reflux disease without esophagitis; K29.80 Duodenitis without bleeding; K90.0 Celiac disease
CPT/HCPCS: 45380; 43239; 81025; 88305; J7120; J2405

== ENCOUNTER → 2022-03-11 | Outpatient (CLI) | payer OTHER, SELFPAY ==
[2022-03-16 18:07] LABS: Cortisol, Urinary Free 9 ug/L (Undefined); Metanephrine, Ur 21 ug/L (Undefined); Metanephrines, 24Ur 57 ug/24 hr (36-209); Normetanephrines, 24Ur 224 ug/24 hr (131-612); Normetanephrines, Ur 83 ug/L (Undefined)
[2022-03-16 20:17] LABS: Cortisol, Free 24Ur 24 ug/24 hr (6-42)
== END | disposition home or self-care (01) ==
LOC: LABSPEC 06:47
PROVIDERS: Visit Provider Physician Assistant
DX: D44.12 Neoplasm of uncertain behavior of left adrenal gland (principal); E66.3 Overweight
CPT/HCPCS: 81050; 82530; 83835

== ENCOUNTER → 2022-03-20 | Outpatient (CLI) | payer OTHER, SELFPAY | END | disposition home or self-care (01) | PROVIDERS: Visit Provider Internal Medicine Gastroenterology | DX: K52.9 Noninfective gastroenteritis and colitis, unspecified (principal) | CPT/HCPCS: 36415 ==

== ENCOUNTER → 2022-05-13 | Outpatient (CLI) | payer OTHER, SELFPAY ==
[2022-05-13 07:21] LABS: AST(SGOT) 18 U/L (15-37); Alanine Aminotransfer ALT/SGPT 28 U/L (13-56); Albumin, Serum 3.8 g/dL (3.2-5.0); Alkaline Phosphatase 79 U/L (45-117); Anion Gap 6 (5-15); BUN 9 mg/dL (7-18); BUN/Creat Ratio 8.8 RATIO (10-20); Calcium,Total 9.7 mg/dL (8.5-10.1); Chloride 107 mmol/L (98-107); Creatinine, Serum 1.02 mg/dL (0.55-1.02); EST Glomerular Filtration Rate 65 mL/min (>60); Est Glom Filt Rate - Afr Amer 79 mL/min (>60); Globulin 3.8 g/dL (2.2-4.2); Glucose 78 mg/dL (74-106); Potassium 4.1 mmol/L (3.5-5.1); Protein, Total 7.6 g/dL (6.4-8.2); Sodium Level 140 mmol/L (136-145); Thyroid Stim Hormone (TSH) 1.96 uIU/mL (0.358-3.74)
== END | disposition home or self-care (01) ==
LOC: LAB 06:27
PROVIDERS: Referring Provider Physician Assistant; Visit Provider Physician Assistant
DX: D44.12 Neoplasm of uncertain behavior of left adrenal gland (principal)
CPT/HCPCS: 36415; 80053; 84443

== ENCOUNTER → 2022-11-25 | Outpatient (CLI) | payer OTHER, SELFPAY ==
--- NOTE | 2022-11-25 07:15 | CT_ITS ---
STUDY: CT ABDOMEN WITH AND WITHOUT CONTRAST REASON FOR EXAM: Female, 37 years old. Benign neoplasm of bilat adrenal gland. Follow-up examination. RADIATION DOSAGE (If Supplied By Facility): CTDIvol = ( 25.04 ) mGy, DLP = ( 1429.78 ) mGycm TECHNIQUE: Transaxial images were obtained pre and post I.V. administration of IV 100mL Isovue-370, and with oral contrast. Sagittal and coronal images were reconstructed. Individualized dose optimization techniques were used for this CT. COMPARISON: Comparison is made with prior study dated February 14, 2022. FINDINGS: The visualized lung bases are unremarkable. The visualized portions of the heart are within normal limits. Normal liver. Normal gallbladder and extrahepatic biliary system. Normal spleen. Normal pancreas. Stable appearance of the small bilateral adrenal adenomas. Normal right kidney. Normal left kidney. Normal visualized stomach. Normal small intestine. Normal colon. The appendix is visualized and appears normal. Normal abdominal aorta. Normal inferior vena cava. Normal retroperitoneum. Normal abdominal wall. Normal osseous structures. CT/Abdomen W/WO IV Contrast IMPRESSION: Stable appearance of the small bilateral adrenal adenomas. No change since prior study. Electronically Signed: Kyler Hess MD at 12:21 EDT ,
== END | disposition home or self-care (01) ==
LOC: CT 07:14
PROVIDERS: PCP Family Medicine; Referring Provider Internal Medicine Endocrinology, Diabetes & Metabolism; Visit Provider Internal Medicine Endocrinology, Diabetes & Metabolism
DX: D35.01 Benign neoplasm of right adrenal gland (principal)
CPT/HCPCS: 74170; Q9967

== ENCOUNTER → 2022-12-05 | Outpatient (CLI) | payer OTHER, SELFPAY ==
[2022-12-05 10:23] LABS: Vitamin D,25 Hydroxy 79.8 ng/mL
[2022-12-05 10:33] LABS: BUN 8 mg/dL (7-18); Creatinine, Serum 0.88 mg/dL (0.55-1.02); EST Glomerular Filtration Rate 78 mL/min (>60); Glucose 79 mg/dL (74-106)
[2022-12-05 10:34] LABS: AST(SGOT) 21 U/L (15-37); Alanine Aminotransfer ALT/SGPT 31 U/L (13-56); Albumin, Serum 3.8 g/dL (3.2-5.0); Alkaline Phosphatase 72 U/L (45-117); Anion Gap 7 (5-15); BUN/Creat Ratio 9.1 RATIO (10-20); Calcium,Total 9.4 mg/dL (8.5-10.1); Chloride 108 mmol/L (98-107); Est Glom Filt Rate - Afr Amer 94 mL/min (>60); Globulin 3.7 g/dL (2.2-4.2); Potassium 4.1 mmol/L (3.5-5.1); Protein, Total 7.5 g/dL (6.4-8.2); Sodium Level 141 mmol/L (136-145); Thyroid Stim Hormone (TSH) 2.26 uIU/mL (0.358-3.74)
== END | disposition home or self-care (01) ==
PROVIDERS: PCP Family Medicine; Referring Provider Internal Medicine Endocrinology, Diabetes & Metabolism; Visit Provider Internal Medicine Endocrinology, Diabetes & Metabolism
DX: D35.02 Benign neoplasm of left adrenal gland (principal); R94.6 Abnormal results of thyroid function studies; E55.9 Vitamin D deficiency, unspecified
CPT/HCPCS: 36415; 80053; 82306; 84443

== ENCOUNTER → 2022-12-08 | Outpatient (CLI) | payer OTHER, SELFPAY ==
[2022-12-08 11:31] LABS: Ferritin 67 ng/mL (8-252)
[2022-12-09 15:08] LABS: Endomysial Antibody IgA Negative (Negative); Immunoglobulin A 106 mg/dL (87-352); t-Transglutaminase IgA <2 U/mL (0-3)
== END | disposition home or self-care (01) ==
LOC: LAB 10:37
PROVIDERS: PCP Family Medicine; Referring Provider Nurse Practitioner Adult Health; Visit Provider Nurse Practitioner Adult Health
DX: K90.0 Celiac disease (principal)
CPT/HCPCS: 36415; 82728; 82784; 83516; 86255

== ENCOUNTER → 2022-12-18 | Outpatient (CLI) | payer OTHER, SELFPAY | END | disposition home or self-care (01) | LOC: LAB 07:46 | PROVIDERS: Referring Provider Internal Medicine Endocrinology, Diabetes & Metabolism; Visit Provider Internal Medicine Endocrinology, Diabetes & Metabolism | DX: D35.02 Benign neoplasm of left adrenal gland (principal) | CPT/HCPCS: 36415; 82533 ==

== ENCOUNTER → 2023-01-16 | Outpatient (CLI) | payer OTHER, SELFPAY ==
[2023-01-16 07:44] LABS: 24HR. Urine Creatinine 1.29 g/24 HR (0.70-1.90)
[2023-01-20 11:08] LABS: Cortisol, Free 24Ur 23 ug/24 hr (6-42); Cortisol, Urinary Free 8 ug/L (Undefined); Metanephrine, Ur 16 ug/L (Undefined); Metanephrines, 24Ur 46 ug/24 hr (36-209); Normetanephrines, 24Ur 230 ug/24 hr (131-612); Normetanephrines, Ur 80 ug/L (Undefined)
== END | disposition home or self-care (01) ==
LOC: LABSPEC 06:42
PROVIDERS: Referring Provider Internal Medicine Endocrinology, Diabetes & Metabolism; Visit Provider Internal Medicine Endocrinology, Diabetes & Metabolism
DX: D35.02 Benign neoplasm of left adrenal gland (principal)
CPT/HCPCS: 81050; 82530; 82570; 83835

== ENCOUNTER → 2023-08-07 | Outpatient (CLI) | payer OTHER, SELFPAY ==
--- OUTSIDE RECORDS SUMMARY | 2023-08-07 07:01 | XMS RPT_ITS | CCD ---
Author Name Unknown Address [address] [place] [address] Organization [facility] Care Team Providers Care Marine Equipment Design Engineer Name Role Phone Carlos Cleary Unavailable Unavailable Carlos Cleary Unavailable Unavailable UNKNOWN, PROVIDER Unavailable Unavailable DANII CHIU Admitting Unavailable DANII CHIU Attending Unavailable Noman Madden MD Primary Care Provider NOMAN MADDEN Primary Care Unavailable PHOEBE CASH Attending Unavailable Allergies Allergy Classification Reported Allergen(s) Allergy Type Date of Onset Reaction(s) Facility (2 sources) Adrenergic Beta-Antagonists; Translations: [BETA-BLOCKERS (BETA-ADRENERGIC BLOCKING AGTS)] Propensity to adverse reactions to drug (disorder) 3 [facility] Repository (3 sources) Codeine; Translations: [CODEINE] Drug Allergy 9 Swelling, Anaphylaxis [facility] Repository (3 sources) Gluten; Translations: [GLUTEN] Propensity to adverse reactions to drug (disorder) 2 Other: See Comments [facility] Repository (2 sources) OTHER; Translations: [OTHER] Propensity to adverse reactions (disorder) 9 [facility] Repository (1 source) Environmental allergies [Other] Propensity to adverse reactions 9 [facility] Medications Completed/Discontinued Medications Medication Drug Class(es) Dates Sig (Normalized) Sig (Original) Ca carb-Ca gluc-Mg ox-Mg gluco (CALCIUM MAGNESIUM) 500 mg calcium -250 mg tab (1 source) take 1 tablet by arnold th twice daily Ca carb-Ca gluc-Mg ox-Mg gluco (CALCIUM MAGNESIUM) 500 mg calcium -250 mg tab Take 1 tablet by mouth twice daily. 0 Active Problems Active Problems Problem Classification Problem Date Documented Date Episodic/Chronic Other female genital disorders (1 source) Pruritus of vagina; Translations: [Other specified noninflammatory disorders of vagina] Episodic Other upper respiratory disease (1 source) Allergic rhinitis; Translations: [Allergic rhinitis, unspecified] Onset: 05-29-2009 05-29-2009 Chronic Prolapse of female genital organs (2 sources) Cystocele and rectocele co-occurrent with incomplete uterovaginal prolapse; Translations: [Incomplete uterovaginal prolapse] Onset: 04-03-2021 Chronic Residual codes; unclassified (1 source) Encounter for cosmetic surgery; Translations: [Encounter for cosmetic procedure] Onset: 07-04-2022 Episodic Unclassified (1 source) Unknown / UNK(Unknown) Onset: 2017 Past or Other Problems Problem Classification Problem Date Documented Da te Episodic/Chronic Unclassified (1 source) WITH CONTRACTIONS Onset: 2017 Results Test Name Value Interpretation Reference Range Facil ity Vital Signs Date Time Vital Sign Value Performing Clinician Faci lity 08-20-2022 09:32-0500 Body height 163.8 cm Phoebe garvey APRN.CNP Work Phone: [facility] 08-20-2022 09:32-0500 Body weight 77.56 kg Phoebe garvey APRN.CNP Work Phone: [facility] Encounters Encounter Date Encounter Type Care Provider Facility Start: 08-20-2022 End: 08-20-[address] [facility] Facility:[facility] Start: 08-20-2022 End: 08-20-2022 Patient encounter procedure Phoebe Cash APRN.CNP Work Phone: OB/Gynecology Plan of Treatment Date Care Activity Detail Author Start: 04-03-2026 HPV TESTING HPV TESTING [facility] Start: 04-03-2026 PAP TESTING PAP TESTING [facility] Start: 08-03-2022 DEPRESSION ASSESSMENT DEPRESSION ASSESSMENT [facility] Start: 02-13-2019 Urine microalbumin profile DTAP,TDAP,TD (8 - Td or Tdap) [facility] Start: 2005 HEPATITIS C SCREENING HEPATITIS C SCREENING [facility] Start: 2005 HIV SCREENING HIV SCREENING [facility] BACTERIAL VAGINOSIS AMPLIFICATION BACTERIAL VAGINOSIS AMPLIFICATION Lab Routine Vagina itching 08/20/2022 10:58 AM [facility] Work Phone: FAISAL / TRICHOMONA S AMPLIFICATION FAISAL / TRICHOMONAS AMPLIFICATION Microbiology Routine Vagina itching 08/20/2022 10:58 AM [facility] Work Phone: Immunizations Immunization Date Immunization Notes Care Provider Hammad oh 05-18-2009 hepatitis B vaccine, adult dosage Phoebe Cash BLENDER HELPER.PIPE FITTER MAINTENANCE Work Phone: [facility] 05-18-2009 measles, mumps and rubella virus vaccine Phoebe Cash BLENDER HELPER.PIPE FITTER MAINTENANCE Work Phone: [facility] 02-13-2009 tetanus toxoid, redu stoney diphtheria toxoid, and acellular pertussis vaccine, adsorbed Phoebe Cash BLENDER HELPER.PIPE FITTER MAINTENANCE Work Phone: [facility] 07-31-2003 hepatitis B vaccine, pediatric or pediatric/adolescent dosage Phoebe Cash BLENDER HELPER.PIPE FITTER MAINTENANCE Work Phone: [facility] 04-20-2003 diphtheria and tetan us toxoids, adsorbed for pediatric use Phoebe Cash BLENDER HELPER.PIPE FITTER MAINTENANCE Work Phone: [facility] 02-24-2003 hepatitis B vaccine, pediatric or pediatric/adolescent dosage Phoebe Cash BLENDER HELPER.PIPE FITTER MAINTENANCE Work Phone: [facility] 01-25-2003 hepatitis B vaccine, pediatric or pediatric/adolescent dosage Phoebe Cash BLENDER HELPER.PIPE FITTER MAINTENANCE Work Phone: [facility] 04-10-1997 diphtheria, tetanus toxoids and pertussis vaccine Phoebe Cash BLENDER HELPER.PIPE FITTER MAINTENANCE Work Phone: [facility] 11-01-1991 diphtheria, tetanus toxoids and pertussis vaccine Phoebe Cash BLENDER HELPER.PIPE FITTER MAINTENANCE Work Phone: [facility] 11-01-1991 trivalent poliovirus vaccine, live, oral Phoebe Cash BLENDER HELPER.PIPE FITTER MAINTENANCE Work Phone: [facility] 08-11-1988 diphtheria, tetanus toxoids and pertussis vaccine Phoebe Cash BLENDER HELPER.PIPE FITTER MAINTENANCE Work Phone: [facility] 05-27-1988 trivalent poliovirus vaccine, live, oral Phoebe Cash BLENDER HELPER.PIPE FITTER MAINTENANCE Work Phone: [facility] 1987 diphtheria, tetanus toxoids and pertussis vaccine Phoebe Cash APRN.PIPE FITTER MAINTENANCE Work Phone: [facility] 1987 diphtheria, tetanus toxoids and pertussis vaccine Phoebe Cash APRN.PIPE FITTER MAINTENANCE Work Phone: [facility] 1987 trivalent poliovirus vaccine, live, oral Phoebe Cash APRN.PIPE FITTER MAINTENANCE Work Phone: [facility] 1987 trivalent poliovirus vaccine, live, oral Phoebe Cash APRN.PIPE FITTER MAINTENANCE Work Phone: [facility] Payers Date Payer Category Payer Private Health Insurance [id number] 2021 Private Health Insurance DAI FELIZ [employer] [facility] [id number] 2021-Present [phone] [address] [place] [address] Open Access [id number] 2016 Unknown [id number] Social History Date Type Detail Facility Start: 07-01-2022 Tobacco smoking stat [facility] Never smoked tobacco [facility] Start: 07-01-2022 Tobacco use and exposure Smoke less tobacco non-user [facility] Start: 08-20-2022 Alcohol intake Current drinke r of alcohol (finding) [facility] Start: 07-01-2022 Tobacco Comment No one in [facility] smokes [facility] Start: 1987 Sex Assigned At Not on file [facility] Progress note 08-20-2022 Note Date & Type Note Facility 08-20-2022 Note HNO ID: [id number] Author: Phoebe Cash APRN.CNP Service: ? Author Type: Nurse Practitioner Type: Progress Notes Filed: 08/20/2022 11:27 AM Note Text: Record Maker offered: Patient declines. Tatiana is a 37 year old who presents for an annual gynecologic exam with [facility] - Telehealth treated for BV symptoms 2 months ago. Continues to have some random itching. Switched to unscented soap and different lubricant. Completed PFT for prolapse effective. Urinary frequency has resolved. Diagnosed with Celiac disease this year. Menses: cycles every 28-30 days and 4-6 days of flow. Day 2 continues to be heaviest - changing saturated super long pad 2-3 times a day. Contraception: none Accepting if occurs. plans vasectomy. HPV vaccine: No Last Pap:2020 normal HPV: 2020 negative History of abnormal pap: Yes ASCUS HPV neg 2010 Last mammogram: never Sexually active: Yes History of STDS: None Patient concerns for STD exposure: No. Time with current partner: 17 years Pain with intercourse: No Postcoital bleeding: No Documentation from previous visit of 04/03/2021 was copied and pasted, documentation has been reviewed and edited as necessary for today's visit. OB History T0 L0 SAB0 IAB0 Ectopic0 Multiple0 Live Births0 Children'S Tutor History LMP: 06/20/2021 (Exact Date), Having periods Age at Menarche: Age at First : Age at Menopause: Children'S Tutor History Comments: Sexual Activity: Yes; Male Contraception: None PAST MEDICAL HISTORY Diagnosis Date Adrenal adenoma 2021 bilateral, asymptomatic. Diagnosed by endocrinology Celiac disease 12/2021 Laryngopharyngeal reflux Mononucleosis Multiple allergies Referred by primary care physician Dr. Noman Madden - PCP PAST SURGICAL HISTORY Procedure Laterality Date TONSILLECTOMY PRIMARY/SECONDARY AGE 14/> FAMILY HISTORY Problem Relation Age of Onset Breast Cancer Mother 58 BRCA negative Lipids Father Diabetes Father Breast Cancer Paternal Grandmother SOCIAL HISTORY Social History Tobacco Use Smoking status: Never Smokeless tobacco: Never Tobacco comments: No one in household smokes Vaping Use Vaping Use: Never used Substance Use Topics Alcohol use: Yes Comment: socially Drug use: No REVIEW OF SYSTEMS Abdomen: No abdominal pain, nausea, vomiting, diarrhea, or constipation. No bloating, early satiety, indigestion, or increased flatulence. Bladder: No dysuria, gross hematuria, urinary frequency, urinary urgency, or incontinence. Breast: No breast lumps, nipple d/c, overlying skin changes, redness or skin retraction. Allergies and current medication updated:Yes EXAM: Ht 5' 4.5 (1.64m) Wt 171 lb (77.6kg) LMP 08/11/2022 BMI 28.91 kg/(m2). GENERAL: pleasant, female in no apparent distress HEENT: Normocephalic, atraumatic, mucus membranes moist, and no lesions NECK: Supple, full range of motion, no adenopathy, and thyroid normal DERMATOLOGY: Normal, without lesions, non-icteric, and non-hirsute BREAST: soft, non-tender, symmetric, no dominant mass, normal nipple-areolar complex, no lymphadenopathy, and no nipple discharge CHEST: Normal inspiratory effort ABDOMEN: soft, non-tender, and no masses PELVIC: external genitalia normal, normal Bartholin's glands, urethra, Coxton's glands, no vulvar lesions, no cervical lesions, good vaginal support, physiologic discharge present, normal appearing perineal body and perianal region. Cystocele 2nd degree, rectocele 1st degree, cervical prolapse 1st degree BIMANUAL: uterus normal size, shape and consistency, no adnexal masses, and non-tender RECTOVAGINAL: deferred. NEURO: alert and oriented x3,exam grossly non-focal EXTREMITIES: normal ASSESSMENT/PLAN: 1) Health maintenance: Pap/HPV up to date. Mammogram starting age 40. Nutrition, exercise and routine health maintenance exams reviewed. Calcium/Vitamin D supplementation information provided. 2. Vagina itching - ICD9: 698.1, ICD10: N89.8 - FAISAL / TRICHOMONAS AMPLIFICATION - BACTERIAL VAGINOSIS AMPLIFICATION 3. Cystocele and rectocele with incomplete uterovaginal prolapse - ICD9: 618.2, ICD10: N81.2 - continue PFT exercises 4) Contraception: none. Contraceptive options reviewed and information provided. 5) STD screening: Declined STD check. 6) Follow up one year or sooner as needed. Discussed Mirena to lighten or stop menstrual flow - will consider. Phoebe Cash APRN.[facility] History of Present illness Narrative 08-20-2022 Phoebe Cash APRN.[facility]ALD - 08/20/2022 9:26 AM EST Note Date & Type Note Facility 08-20-2022 History of Presen t illness Narrative Record Maker offered: Patient declines. Tatiana is a 37 year old who presents for an annual gynecologic exam with complaints - Telehealth treated for BV symptoms 2 months ago. Continues to have some random itching. Switched to unscented soap and different lubricant. Completed PFT for prolapse effective. Urinary frequency has resolved. Diagnosed with Celiac disease this year. Menses: cycles every 28-30 days and 4-6 days of flow. Day 2 continues to be heaviest - changing saturated super long pad 2-3 times a day. Contraception: none Accepting if occurs. plans vasectomy. HPV vaccine: No Last Pap:2020 normal HPV: 2020 negative History of abnormal pap: Yes ASCUS HPV neg 2010 Last mammogram: never Sexually active: Yes History of STDS: None Patient concerns for STD exposure: No. Time with current partner: 17 years Pain with intercourse: No Postcoital bleeding: No Documentation from previous visit of 04/03/2021 was copied and pasted, documentation has been reviewed and edited as necessary for today's visit. OB History T0 L0 SAB0 IAB0 Ectopic0 Multiple0 Live Births0 Children'S Tutor History LMP: 06/20/2021 (Exact Date), Having periods Age at Menarche: Age at First : Age at Menopause: Children'S Tutor History Comments: Sexual Activity: Yes; Male Contraception: None PAST MEDICAL HISTORY Diagnosis Date Adrenal adenoma 2021 bilateral, asymptomatic. Diagnosed by endocrinology Celiac disease 12/2021 Laryngopharyngeal reflux Mononucleosis Multiple allergies Referred by primary care physician Dr. Noman Madden - PCP PAST SURGICAL HISTORY Procedure Laterality Date TONSILLECTOMY PRIMARY/SECONDARY AGE 14/> FAMILY HISTORY Problem Relation Age of Onset Breast Cancer Mother 58 BRCA negative Lipids Father Diabetes Father Breast Cancer Paternal Grandmother SOCIAL HISTORY Social History Tobacco Use Smoking status: Never Smokeless tobacco: Never Tobacco comments: No one in household smokes Vaping Use Vaping Use: Never used Substance Use Topics Alcohol use: Yes Comment: socially Drug use: No REVIEW OF SYSTEMS Abdomen: No abdominal pain, nausea, vomiting, diarrhea, or constipation. No bloating, early satiety, indigestion, or increased flatulence. Bladder: No dysuria, gross hematuria, urinary frequency, urinary urgency, or incontinence. Breast: No breast lumps, nipple d/c, overlying skin changes, redness or skin retraction. Allergies and current medication updated:Yes EXAM: Ht 5' 4.5 (1.64m) Wt 171 lb (77.6kg) LMP 08/11/2022 BMI 28.91 kg/(m^2). GENERAL: pleasant, female in no apparent distress HEENT: Normocephalic, atraumatic, mucus membranes moist, and no lesions NECK: Supple, full range of motion, no adenopathy, and thyroid normal DERMATOLOGY: Normal, without lesions, non-icteric, and non-hirsute BREAST: soft, non-tender, symmetric, no dominant mass, normal nipple-areolar complex, no lymphadenopathy, and no nipple discharge CHEST: Normal inspiratory effort ABDOMEN: soft, non-tender, and no masses PELVIC: external genitalia normal, normal Bartholin's glands, urethra, Coxton's glands, no vulvar lesions, no cervical lesions, good vaginal support, physiologic discharge present, normal appearing perineal body and perianal region. Cystocele 2nd degree, rectocele 1st degree, cervical prolapse 1st degree BIMANUAL: uterus normal size, shape and consistency, no adnexal masses, and non-tender RECTOVAGINAL: deferred. NEURO: alert and oriented x3,exam grossly non-focal EXTREMITIES: normal ASSESSMENT/PLAN: 1) Health maintenance: Pap/HPV up to date. Mammogram starting age 40. Nutrition, exercise and routine health maintenance exams reviewed. Calcium/Vitamin D supplementation information provided. 2. Vagina itching - ICD9: 698.1, ICD10: N89.8 - FAISAL / TRICHOMONAS AMPLIFICATION - BACTERIAL VAGINOSIS AMPLIFICATION 3. Cystocele and rectocele with incomplete uterovaginal prolapse - ICD9: 618.2, ICD10: N81.2 - continue PFT exercises 4) Contraception: none. Contraceptive options reviewed and information provided. 5) STD screening: Declined STD check. 6) Follow up one year or sooner as needed. Discussed Mirena to lighten or stop menstrual flow - will consider. Phoebe Cash APRN.CNP documented in this encounter [facility] Clinical Note 07-04-2022 Note Date & Type Note Facility 07-04-2022 Note HNO ID: [id number] Author: Sarah Seaman APRN.SUPERVISOR LABORATORY Service: ? Author Type: Nurse Factory Process Workers Type: Anesthesia Procedure Notes Filed: 07/04/2022 4:16 PM Note Text: ANESTHESIOLOGY PROCEDURE NOTE Airway General Information Procedure Start Time/Medication Administration: 07/04/2022 3:44 PM Procedure End Time: 07/04/2022 1:44 PM Patient location during procedure: OR Timeout Performed Pre-procedure: timeout performed Consent Obtained: Yes Patient identity confirmed: arm band and care engineer steam Staffing Anesthesiologist: Mariella Martinez MD SUPERVISOR LABORATORY: Sarah Seaman APRN.SUPERVISOR LABORATORY Performed by: GUERLINE Indications and Patient Condition Indications for airway management: anesthesia Preoxygenated: yes anesthesia circuit Patient position: sniffing Method: asleep Cricoid Pressure: No Manual In-Line Stabilization: No Difficult Mask: No Final Airway Details Final airway type: endotracheal airway Final Endotracheal Airway: ETT Cuffed: yes Successful intubation technique: direct laryngoscopy Endotracheal tube insertion site: oral Blade: Jelena Blade size: #3 ETT size (mm): 7.0 Measured from: lips Measurement (cm): 22 Placement verified by: chest auscultation and capnometry Cormack-Lehane Classification: grade I - full view of glottis Number of attempts at approach: 1 Failed airway: no Unrecognized esophageal intubation: no Airway not difficult SIGNATURE: Sarah Seaman APRN.SUPERVISOR LABORATORY PATIENT NAME: Tatiana Patton DATE: July 04, 2022 TIME: 4:15 PM CSN: [id number] [facility] Progress note 07-03-2022 Note Date & Type Note Facility 07-03-2022 Note HNO ID: [id number] Author: Echo Herrera RN Service: Nursing Author Type: Registered Nurse Type: Progress Notes Filed: 07/03/2022 4:03 PM Note Text: PRE-PROCEDURE INSTRUCTIONS TO PREPARE FOR YOUR PROCEDURE: Your arrival time for your procedure is 1300. Do NOT eat any solid foods after MIDNIGHT the night prior to your procedure - this includes gum or mints. You can drink clear liquids* up until 1100, which is 2 hours before your arrival time. *Clear liquids = water, carbohydrate drink (sports drink that is clear or yellow in color), Ensure Pre-Surgery (given by ANGELIQUE or efe Shaikh), fruit juice without pulp (apple/cranberry), clear tea, black coffee (no cream). NO ALCOHOL. Shower the morning of the procedure, put on clean clothes, and have clean sheets for your bed to help prevent infection after your procedure. Leave all valuables such as jewelry including rings, piercings, wallets, and purses at home. Wear comfortable, loose-fitting clothing. If you wear glasses or contacts, please bring a case. SPECIAL INSTRUCTIONS: If instructed, bring your first voided urine specimen with you. Instructed to bring. If you were provided skin preparation to use prior to your procedure, complete this as directed. If you were provided Ensure Pre-Surgery drink, you need to drink this at na. This should be consumed quickly (in less than 5 minutes, rather than sipped over time) If you use crutches or a walker, bring them with you. If you have a home CPAP/BIPAP machine, bring it with you. If you were instructed to complete a fleets enema or bowel prep, complete as directed. Bring copy of Living Will/Power of Information Specialist. Do not smoke or chew. If you use tobacco, quit or at least cut down before surgery. Do not smoke or chew after midnight the day before your surgery. This effects bleeding, infection, healing, and so much more. Do not take any Diet or Herbal Supplements 2 weeks prior to your surgery date. Please notify your physician if there is any change in your physical condition such as a cold, cough, fever, sore throat, or skin irritation near the surgical site. Visitors under the age of 14 are restricted in the Surgery Center. UPON ARRIVAL: Access to [facility] is located on [address] Clerk parking is available for your convenience from 5am-5pm- there is a $5.00 charge for this service. Take the elevators directly inside the entrance to the 1st Floor Surgery Lobby. Sign in at the podium located to the left when you get off the elevators. A payment may be expected at the time of service. One visitor may come back to the preoperative area with you. The preoperative staff will be reviewing your medical history, please let them know if you prefer not to have a visitor with you during this time. Once you are ready for surgery, two visitors at a time are permitted in your preoperative room. PATIENT MEDICATION INSTRUCTIONS Please read below carefully for your personalized instructions. Medications: If you are on blood thinner or anticoagulants including aspirin, please confirm with your surgical team on when to stop these medications. Unless instructed differently by your surgical team, stay on all of your medications until your surgery. Pre-Surgery Med Instructions Medication Instructions famotidine (PEPCID) 20 mg tablet Take morning of surgery with a sip of water, no other fluids Ferrous Sulfate (SLOW FE) 142 mg (45 mg iron) TbER Follow Surgeon's instructions Ca carb-Ca gluc-Mg ox-Mg gluco (CALCIUM MAGNESIUM) 500 mg calcium -250 mg tab Follow Surgeon's instructions cholecalciferol, vitD3,/vit K2 (VITAMIN D3-VITAMIN K2 ORAL) Follow Surgeon's instructions COLLAGEN MISC Follow Surgeon's instructions Cyanocobalamin 2,500 mcg subl Follow Surgeon's instructions melatonin 5 mg ODT Continue until the night before surgery olopatadine (PATADAY ONCE DAILY RELIEF) 0.7 % May use if needed polaprezinc, zinc carnosine, (PEPZINGI ORAL) Follow Surgeon's instructions CETIRIZINE 10 MG TAB Take morning of surgery with a sip of water, no other fluids If you have any medication changes between receiving these instructions and your surgery date, please provide this updated information with the nurse who calls you the week day prior to your surgical procedure so we can update your list and provide you with updated instructions for the morning of your procedure. [facility] Progress note 07-03-2022 Note Date & Type Note Facility 07-03-2022 Note HNO ID: [id number] Author: Ramandeep Mcgee APRN.PIPE FITTER MAINTENANCE Service: ? Author Type: Nurse Practitioner Type: Progress Notes Filed: 07/03/2022 10:44 AM Note Text: PATIENT MEDICATION INSTRUCTIONS Please read below carefully for your personalized instructions. Medications: If you are on blood thinner or anticoagulants including aspirin, please confirm with your surgical team on when to stop these medications. Unless instructed differently by your surgical team, stay on all of your medications until your surgery. Pre-Surgery Med Instructions Medication Instructions famotidine (PEPCID) 20 mg tablet Take morning of surgery with a sip of water, no other fluids Ferrous Sulfate (SLOW FE) 142 mg (45 mg iron) TbER Follow Surgeon's instructions Ca carb-Ca gluc-Mg ox-Mg gluco (CALCIUM MAGNESIUM) 500 mg calcium -250 mg tab Follow Surgeon's instructions cholecalciferol, vitD3,/vit K2 (VITAMIN D3-VITAMIN K2 ORAL) Follow Surgeon's instructions COLLAGEN MISC Follow Surgeon's instructions Cyanocobalamin 2,500 mcg subl Follow Surgeon's instructions melatonin 5 mg ODT Continue until the night before surgery olopatadine (PATADAY ONCE DAILY RELIEF) 0.7 % May use if needed polaprezinc, zinc carnosine, (PEPZINGI ORAL) Follow Surgeon's instructions CETIRIZINE 10 MG TAB Take morning of surgery with a sip of water, no other fluids If you have any medication changes between receiving these instructions and your surgery date, please provide this updated information with the nurse who calls you the week day prior to your surgical procedure so we can update your list and provide you with updated instructions for the morning of your procedure. [facility] Evaluation note Note Date & Type Note Facility documented in this encounter [facility] Summary Purpose Family History No Family History Records FoundNo Family History Records FoundNo Family History Records FoundNo Family History Records Found Advance Directives No Advanced Directives Records FoundNo Advanced Directives Records FoundNo Advanced Directives Records FoundNo Advanced Directives Records Found Additional Source Comments INFORMATION SOURCE (unrecogn ized section and content) DATE CREATED AUTHOR AUTHOR'S ORGANIZ ATION 09/12/2019 [facility] ([place]) DATE CREATED AUTHOR AUTHOR'S ORGANIZ ATION 07/05/2022 [facility] nter DATE CREATED AUTHOR AUTHOR'S ORGANIZ ATION 08/26/2022 [facility] Source Comments (unrecognize d section and content) In the event this informatio n is protected by the Federal Confidentiality of Alcohol and Drug Abuse Patient Records regulations: The Federal rules restrict any use of the information to criminally investigate or prosecute any alcohol or drug abuse patient.[facility] Reason for Visit (unrecogniz ed section and content) Care Teams (unrecognized sec tion and content) FOR RECORDS PERTAINING TO PATIENTS WHO ARE OR HAVE BEEN ENROLLED IN A CHEMICAL DEPENDENCY/SUBSTANCEABUSE PROGRAM, SOME INFORMATION MAY BE OMITTED. This clinical summary was aggregated from multiple sources. Caution should be exercised in using it in the provision of clinical care. This summary normalizes information from multiple sources, and as a consequence, information in this document may materially change the coding, format and clinical context of patient data. In addition, data may be omitted in some cases. CLINICAL DECISIONS SHOULD BE BASED ON THE PRIMARY CLINICAL RECORDS. [facility]. provides no warranty or guarantee of the accuracy or completeness of information in this document.
[2023-08-07 08:16] LABS: AST(SGOT) 14 U/L (15-37); Alanine Aminotransfer ALT/SGPT 23 U/L (13-56); Albumin, Serum 3.7 g/dL (3.2-5.0); Alkaline Phosphatase 76 U/L (45-117); Anion Gap 5 (5-15); BUN 8 mg/dL (7-18); Calcium,Total 9.2 mg/dL (8.5-10.1); Chloride 110 mmol/L (98-107); Creatinine, Serum 0.88 mg/dL (0.55-1.02); EST Glomerular Filtration Rate 77 mL/min (>60); Est Glom Filt Rate - Afr Amer 93 mL/min (>60); Globulin 3.6 g/dL (2.2-4.2); Glucose 73 mg/dL (74-106); Potassium 3.7 mmol/L (3.5-5.1); Protein, Total 7.3 g/dL (6.4-8.2); Sodium Level 140 mmol/L (136-145); Thyroid Stim Hormone (TSH) 2.04 uIU/mL (0.358-3.74)
[2023-08-07 08:28] LABS: Vitamin D,25 Hydroxy 62.5 ng/mL
[2023-08-08 04:10] LABS: DHEA Sulfate 60.4 ug/dL (57.3-279.2)
== END | disposition home or self-care (01) ==
LOC: LAB 06:59
PROVIDERS: Referring Provider Internal Medicine Endocrinology, Diabetes & Metabolism; Visit Provider Internal Medicine Endocrinology, Diabetes & Metabolism
DX: D35.02 Benign neoplasm of left adrenal gland (principal); E04.0 Nontoxic diffuse goiter; E55.9 Vitamin D deficiency, unspecified
CPT/HCPCS: 36415; 80053; 82306; 82627; 84443; 82626

== ENCOUNTER → 2023-08-17 | Outpatient (CLI) | payer OTHER, SELFPAY ==
--- NOTE | 2023-08-17 14:24 | BI_ITS ---
MAMMOGRAPHY - BILATERAL DIAGNOSTIC REASON FOR EXAM: Female, 38 years old. Right lateral breast. PERTINENT HISTORY: Mother with breast cancer. Grandmother with breast. TECHNIQUE: Digital bilateral breast leatha (3D mammographic acquisition) in the CC and MLO projections. 2-D mediolateral oblique (MLO) and craniocaudad (CC) views of both breasts were obtained. CAD: Full Field Digital Mammography with Computer Added Detection was performed. COMPARISON: None. Baseline examination. FINDINGS: Breast Composition: The breasts are heterogeneously dense, which may obscure small masses. There are no dominant masses or suspicious calcifications. No other significant abnormalities are identified. BI/DIAG MAMM W/CAD, BILAT IMPRESSION: Negative diagnostic mammogram. With the patient''s history of right breast pain in the upper outer quadrant, correlation with ultrasound is recommended. ASSESSMENT CATEGORY: BIRADS Category 0: Incomplete. Need additional imaging evaluation. A letter regarding these results will be sent to the patient by the facility within 30 days. Approximately 10% of breast cancers are not detected by mammography. A normal mammogram should not delay biopsy of a clinically suspicious abnormality. Electronically Signed: Kyler Hess MD at 15:15 EST ,
--- NOTE | 2023-08-17 14:24 | US_ITS ---
STUDY: ULTRASOUND BREAST - RIGHT REASON FOR EXAM: Female, 38 years old. Right lateral breast pain. TECHNIQUE: Axial and longitudinal images of the RIGHT breast were performed with a high resolution ultrasound transducer. # OF IMAGES: 47 COMPARISON: Comparison is made with prior mammogram dated August 17, 2023. FINDINGS: RIGHT Breast: The lateral half of the right breast was examined with ultrasound. There is evidence of dilatation of the retroareolar ducts. Echogenic foci is seen within them suggestive of possible papilloma. This is at the 8:00 position of the breast at 4 cm from the nipple. US/Breast Limited Unilateral IMPRESSION: Dilated retroareolar ducts with echogenic focus within a dilated duct at the 8:00 position of the breast at 4 cm from the nipple. ASSESSMENT CATEGORY: BIRADS Category 4: Suspicious - Biopsy Should Be Considered. A letter regarding these results will be sent to the patient by the facility within 30 days. Electronically Signed: Kyler Hess MD at 9:37 EST ,
--- OUTSIDE RECORDS SUMMARY | 2023-08-17 15:29 | XMS RPT_ITS | CCD ---
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 Floor Worker Name Role Phone Carlos Cleary Unavailable Unavailable [...] to adverse reactions to drug (disorder) 3 [facility] Repository (3 sources) Codeine; Translations: [CODEINE] Drug Allergy 9 Swelling, Anaphylaxis [facility] Repository (3 sources) Gluten; Translations: [GLUTEN] Propensity to adverse reactions to drug (disorder) 2 Other: See Comments [facility] Repository (2 sources) OTHER; Translations: [OTHER] Propensity to adverse reactions (disorder) 9 [facility] Repository (1 source) Environmental allergies [Other] Propensity to adverse reactions 9 [facility] Medications Completed/Discontinued Medications Medication Drug Class(es) Dates [...] 163.8 cm Phoebe garvey APRN.CNP Work Phone: [facility] 08-20-2022 09:32-0500 Body weight 77.56 kg Phoebe garvey APRN.CNP Work Phone: [facility] Encounters Encounter Date Encounter Type Care Provider Facility Start: 08-20-2022 End: 08-20-2022 ambulatory [facility] Facility:[facility] Start: 08-20-2022 End: 08-20-2022 Patient encounter procedure Phoebe Cash APRN.CNP Work Phone: OB/Gynecology Plan of Treatment Date Care Activity Detail Author Start: 04-03-2026 HPV TESTING HPV TESTING [facility] Start: 04-03-2026 PAP TESTING PAP TESTING [facility] Start: 08-03-2022 DEPRESSION ASSESSMENT DEPRESSION ASSESSMENT [facility] Start: 02-13-2019 Urine microalbumin profile DTAP,TDAP,TD (8 - Td or Tdap) [facility] Start: 2005 HEPATITIS C SCREENING HEPATITIS C SCREENING [facility] Start: 2005 HIV SCREENING HIV SCREENING [facility] BACTERIAL VAGINOSIS AMPLIFICATION BACTERIAL VAGINOSIS AMPLIFICATION Lab Routine Vagina itching 08/20/2022 10:58 AM [facility] Work Phone: FAISAL / TRICHOMONA S AMPLIFICATION FAISAL / TRICHOMONAS AMPLIFICATION Microbiology Routine Vagina itching 08/20/2022 10:58 AM [facility] Work Phone: Immunizations Immunization Date Immunization Notes Care Provider [place]ammad [place] 05-18-2009 hepatitis B vaccine, adult dosage Phoebe Cash LAB ANALYST.BENZOL STILL OPERATOR Work Phone: [facility] 05-18-2009 measles, mumps and rubella virus vaccine Phoebe Cash LAB ANALYST.BENZOL STILL OPERATOR Work Phone: [facility] 02-13-2009 tetanus toxoid, redu stoney diphtheria toxoid, and acellular pertussis vaccine, adsorbed Phoebe Cash LAB ANALYST.BENZOL STILL OPERATOR Work Phone: [facility] 07-31-2003 hepatitis B vaccine, pediatric or pediatric/adolescent dosage Phoebe Cash LAB ANALYST.BENZOL STILL OPERATOR Work Phone: [facility] 04-20-2003 diphtheria and tetan us toxoids, adsorbed for pediatric use Phoebe Cash LAB ANALYST.BENZOL STILL OPERATOR Work Phone: [facility] 02-24-2003 hepatitis B vaccine, pediatric or pediatric/adolescent dosage Phoebe Cash LAB ANALYST.BENZOL STILL OPERATOR Work Phone: [facility] 01-25-2003 hepatitis B vaccine, pediatric or pediatric/adolescent dosage Phoebe Cash LAB ANALYST.BENZOL STILL OPERATOR Work Phone: [facility] 04-10-1997 diphtheria, tetanus toxoids and pertussis vaccine Phoebe Cash LAB ANALYST.BENZOL STILL OPERATOR Work Phone: [facility] 11-01-1991 diphtheria, tetanus toxoids and pertussis vaccine Phoebe Cash LAB ANALYST.BENZOL STILL OPERATOR Work Phone: [facility] 11-01-1991 trivalent poliovirus vaccine, live, oral Phoebe Cash LAB ANALYST.BENZOL STILL OPERATOR Work Phone: [facility] 08-11-1988 diphtheria, tetanus toxoids and pertussis vaccine Phoebe Cash LAB ANALYST.BENZOL STILL OPERATOR Work Phone: [facility] 05-27-1988 trivalent poliovirus vaccine, live, oral Phoebe Cash LAB ANALYST.BENZOL STILL OPERATOR Work Phone: [facility] 1987 diphtheria, tetanus toxoids and pertussis vaccine Phoebe Cash APRN.BENZOL STILL OPERATOR Work Phone: [facility] 1987 diphtheria, tetanus toxoids and pertussis vaccine Phoebe Cash APRN.BENZOL STILL OPERATOR Work Phone: [facility] 1987 trivalent poliovirus vaccine, live, oral Phoebe Cash APRN.BENZOL STILL OPERATOR Work Phone: [facility] 1987 trivalent poliovirus vaccine, live, oral Phoebe Cash APRN.BENZOL STILL OPERATOR Work Phone: [facility] Payers Date Payer Category Payer Private Health Insurance [id number] 2021 Private Health Insurance [employer]I [employer] [facility] [id number] 2021-Present [phone] [address] [place] [address] Open Access [id number] 2016 Unknown [id number] Social History Date Type Detail Facility Start: 07-01-2022 Tobacco smoking stat [facility] Never smoked tobacco [facility] Start: 07-01-2022 Tobacco use and exposure Smoke less tobacco non-user [facility] Start: 08-20-2022 Alcohol intake Current drinke r of alcohol (finding) [facility] Start: 07-01-2022 Tobacco Comment No one in [facility] smokes [facility] Start: 1985 [facility] 08-20-2022 Note Date & Type Note Facility 08-20-2022 Note HNO ID: [id number] Author: Phoebe Cash APRN.CNP Service: ? Author Type: Nurse Practitioner Type: Progress Notes Filed: 08/20/2022 11:27 AM Note Text: Yard Hostler offered: Patient declines. Tatiana is a 37 year old who presents for an annual gynecologic exam with [facility] - Telehealth treated for BV symptoms [...] L0 SAB0 IAB0 Ectopic0 Multiple0 Live Births0 Beef Trimmer History LMP: 06/20/2021 (Exact Date), Having periods Age at Menarche: Age at First : Age at Menopause: Beef Trimmer History Comments: Sexual Activity: Yes; Male Contraception: [...] external genitalia normal, normal Bartholin's glands, urethra, Inkster's glands, no vulvar lesions, no cervical lesions, [...] menstrual flow - will consider. Phoebe Cash APRN.[facility] History of Present illness Narrative 08-20-2022 Phoebe Cash APRN.OSWALD - 08/20/2022 9:26 AM EST Note Date & Type Note Facility 08-20-2022 History of Presen t illness Narrative Yard Hostler offered: Patient declines. 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 Bring copy of Living Will/Power of Wafer Polisher. Do not smoke or chew. If you [...] the Surgery Center. UPON ARRIVAL: Access to [facility] is located on [address] Senior Computer Specialist parking is available for your convenience from [...] instructions for the morning of your procedure. [facility] Progress note 07-03-2022 Note Date & Type Note Facility 07-03-2022 Note HNO ID: [id number] Author: Ramandeep cMgee APRN.BENZOL STILL OPERATOR Service: ? Author Type: Nurse Practitioner Type: [...] instructions for the morning of your procedure. [facility] Evaluation note Note Date & Type Note Facility documented in this encounter [facility] Summary Purpose Family History No Family History Records FoundNo Family History Records FoundNo Family History Records FoundNo Family History Records Found Advance Directives No Advanced Directives Records FoundNo Advanced Directives Records FoundNo Advanced Directives Records FoundNo Advanced Directives Records Found Additional Source Comments INFORMATION SOURCE (unrecogn ized section and content) DATE CREATED AUTHOR AUTHOR'S ORGANIZ ATION 09/12/2019 [facility] ([place]) DATE CREATED AUTHOR AUTHOR'S ORGANIZ ATION 07/05/2022 [facility] nter DATE CREATED AUTHOR AUTHOR'S ORGANIZ ATION 08/26/[address] [facility] Source Comments (unrecognize d section and content) In the event this informatio n is protected by the Federal Confidentiality of Alcohol and Drug Abuse Patient Records regulations: The Federal rules restrict any use of the information to criminally investigate or prosecute any alcohol or drug abuse patient.[facility] Reason for Visit (unrecogniz ed section and [...] BE BASED ON THE PRIMARY CLINICAL RECORDS. [facility]. provides no warranty or guarantee of the accuracy or completeness of information in this document.
== END | disposition home or self-care (01) ==
DX: N63.11 Unspecified lump in the right breast, upper outer quadrant (principal); N64.89 Other specified disorders of breast; Z80.3 Family history of malignant neoplasm of breast
CPT/HCPCS: 76642; 77062; 77066; G0279

== ENCOUNTER → 2023-08-27 | Outpatient (CLI) | payer OTHER, SELFPAY ==
--- NOTE | 2023-08-27 | BRBX_PTH ---
PATHOLOGY RESULTS PATIENT: RANCHO PATTON LOC: OPUS U#:[id number] AGE/SX: 38/F ROOM: RE08/27/[address]: Dr. Echo Niño MD : 1985 BED: DIS: 08/27/2023 SPEC #: [id number] RECD: 08/27/23 10:45 STATUS: TISH RERegina #: [id number] AARON: 08/27/23 00:[address]: Echo Niño DEPT: SURGICAL PATHOLOGY RECD BY: Gabriel Mccracken ENTERED: 08/27/23 13:17 SP TYPE: BREAST BX OTHR DR: Dr. 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 Mild duct ectasia and apocrine metaplasia (fibrocystic change). No evidence of malignancy. AM:sarina 08/28/2023 COMMENT Case has been reviewed in consultation with Dr. Deras who concurs with the above diagnosis. IDC:[id number] MICROSCOPIC DESCRIPTION Slides are reviewed. GROSS DESCRIPTION Received in fixative is one container labeled with the patient's name and designated right breast. The specimen consists of multiple elongated fragments of colbert-yellow fibroadipose tissue that in aggregate measure 2.5 x 2.5 x 0.2 cm. The entire specimen is submitted in one cassette. / SJ:sarina 08/27/2023 TC:5 Ischemic Time: 1 minute Fixation Time: 9 hours CPT: 01302
--- NOTE | 2023-08-27 09:44 | US_ITS ---
STUDY: ULTRASOUND BREAST - RIGHT REASON FOR EXAM: Female, 38 years old. Ultrasound-guided breast biopsy. TECHNIQUE: Axial and longitudinal images of the RIGHT breast were performed with a high resolution ultrasound transducer. # OF IMAGES: 40 COMPARISON: Comparison is made with prior sonogram dated August 17, 2023. FINDINGS: RIGHT Breast: Under direct sonographic guidance, the surgeon performed biopsies of the echogenic nodule at the 8:00 region of the breast at 4 cm from the nipple. A tissue clip marker was placed. US/US Breast Biopsy 1st Lesion IMPRESSION: Ultrasound-guided breast biopsy as described. ASSESSMENT CATEGORY: BIRADS Category 2: Benign. A letter regarding these results will be sent to the patient by the facility within 30 days. Electronically Signed: Kyler Hess MD at 15:23 EST ,
--- OUTSIDE RECORDS SUMMARY | 2023-08-27 10:06 | XMS RPT_ITS | CCD ---
Author Name Unknown Address [address] [place] [address] Organization [facility] Care Team Providers Care Geographic Information Scientist Name Role Phone Carlos Cleary Unavailable Unavailable Carlos Cleary Unavailable Unavailable UNKNOWN, PROVIDER Unavailable Unavailable DANII CHIU Admitting Unavailable DANII CHIU Attending Unavailable Noman Madden MD Primary Care Provider [phone] NOMAN MADDEN Primary Care Unavailable HPOEBE CASH Attending Unavailable Allergies Allergy Classification Reported Allergen(s) Allergy Type Date of Onset Reaction(s) Facility (2 sources) Adrenergic Beta-Antagonists; Translations: [BETA-BLOCKERS (BETA-ADRENERGIC BLOCKING AGTS)] Propensity to adverse reactions to drug (disorder) 3 [facility] Repository (3 sources) Codeine; Translations: [CODEINE] Drug Allergy 9 Swelling, Anaphylaxis [facility] Repository (3 sources) Gluten; Translations: [GLUTEN] Propensity to adverse reactions to drug (disorder) 2 Other: See Comments [facility] Repository (2 sources) OTHER; Translations: [OTHER] Propensity to adverse reactions (disorder) 9 [facility] Repository (1 source) Environmental allergies [Other] Propensity to adverse reactions 9 [facility] Medications Completed/Discontinued Medications Medication Drug Class(es) Dates [...] 163.8 cm Phoebe garvey APRN.CNP Work Phone: [facility] 08-20-2022 09:32-0500 Body weight 77.56 kg Phoebe garvey APRN.CNP Work Phone: [facility] Encounters Encounter Date Encounter Type Care Provider Facility Start: 08-20-2022 End: 08-20-2022 ambulatory [facility] Facility:[facility] Start: 08-20-2022 End: 08-20-2022 Patient encounter procedure Phoebe Cash APRN.CNP Work Phone: OB/Gynecology Plan of Treatment Date Care Activity Detail Author Start: 04-03-2026 HPV TESTING HPV TESTING [facility] Start: 04-03-2026 PAP TESTING PAP TESTING [facility] Start: 08-03-2022 DEPRESSION ASSESSMENT DEPRESSION ASSESSMENT [facility] Start: 02-13-2019 Urine microalbumin profile DTAP,TDAP,TD (8 - Td or Tdap) [facility] Start: 2005 HEPATITIS C SCREENING HEPATITIS C SCREENING [facility] Start: 2005 HIV SCREENING HIV SCREENING [facility] BACTERIAL VAGINOSIS AMPLIFICATION BACTERIAL VAGINOSIS AMPLIFICATION Lab Routine Vagina itching 08/20/2022 10:58 AM [facility] Work Phone: FAISAL / TRICHOMONA S AMPLIFICATION FAISAL / TRICHOMONAS AMPLIFICATION Microbiology Routine Vagina itching 08/20/2022 10:58 AM [facility] Work Phone: Immunizations Immunization Date Immunization Notes Care Provider Hammad oh 05-18-2009 hepatitis B vaccine, adult dosage Phoebe Cash GORE SEAMER.[employer]CHER PHOTOENGRAVING Work Phone: [facility] 05-18-2009 measles, mumps and rubella virus vaccine Phoebe Cash GORE SEAMER.ETCHER [employer]OTOENGRAVING Work Phone: [facility] 02-13-2009 tetanus toxoid, redu stoney diphtheria toxoid, and acellular pertussis vaccine, adsorbed Phoebe Cash GORE SEAMER.ETCHER PHOTOENGRAVING Work Phone: [facility] 07-31-2003 hepatitis B vaccine, pediatric or pediatric/adolescent dosage Phoebe Cash GORE SEAMER.ETCHER PHOTOENGRAVING Work Phone: [facility] 04-20-2003 diphtheria and tetan us toxoids, adsorbed for pediatric use Phoebe Cash GORE SEAMER.ETCHER PHOTOENGRAVING Work Phone: [facility] 02-24-2003 hepatitis B vaccine, pediatric or pediatric/adolescent dosage Phoebe Cash GORE SEAMER.ETCHER PHOTOENGRAVING Work Phone: [facility] 01-25-2003 hepatitis B vaccine, pediatric or pediatric/adolescent dosage Phoebe Cash GORE SEAMER.ETCHER PHOTOENGRAVING Work Phone: [facility] 04-10-1997 diphtheria, tetanus toxoids and pertussis vaccine Phoebe Cash GORE SEAMER.ETCHER PHOTOENGRAVING Work Phone: [facility] 11-01-1991 diphtheria, tetanus toxoids and pertussis vaccine Phoebe Cash GORE SEAMER.[employer]CHER [employer]ENGRAVING Work Phone: [facility] 11-01-1991 trivalent poliovirus vaccine, live, oral Phoebe Cash GORE SEAMER.ETCHER PHOTOENGRAVING Work Phone: [facility] 08-11-1988 diphtheria, tetanus toxoids and pertussis vaccine Phoebe Cash GORE SEAMER.ETCHER PH[employer]ENGRAVING Work Phone: [facility] 05-27-1988 trivalent poliovirus vaccine, live, oral Phoebe Cash GORE SEAMER.ETCHER PHOTOENGRAVING Work Phone: [facility] 1985 diphtheria, tetanus toxoids and pertussis vaccine Phoebe Cash APRN.ETCHER PHOTOENGRAVING Work Phone: [facility] 1985 diphtheria, tetanus toxoids and pertussis vaccine Phoebe Cash APRN.ETCHER PHOTOENGRAVING Work Phone: [facility] 1985 trivalent poliovirus vaccine, live, oral Phoebe Cash APRN.ETCHER PHOTOENGRAVING Work Phone: [facility] 1985 trivalent poliovirus vaccine, live, oral Phoebe Cash APRN.ETCHER PHOTOENGRAVING Work Phone: [facility] Payers Date Payer Category Payer Private Health Insurance [id number] 2021 Private Health Insurance DAI FELIZ [employer] [facility] [id number] 2021-Present [phone] [address] [place] [address] Open Access [id number] 2016 Unknown [id number] Social History Date Type Detail Facility Start: 07-01-2022 Tobacco smoking stat [facility] Never smoked tobacco [facility] Start: 07-01-2022 Tobacco use and exposure Smoke less tobacco non-user [facility] Start: 08-20-2022 Alcohol intake Current drinke r of alcohol (finding) [facility] Start: 07-01-2022 Tobacco Comment No one in [facility] smokes [facility] Start: 1985 [facility] note 08-20-2022 Note Date & Type Note Facility 08-20-2022 Note HNO ID: [id number] Author: Phoebe Cash APRN.CNP Service: ? Author Type: Nurse Practitioner Type: Progress Notes Filed: 08/20/2022 11:27 AM Note Text: Rn Vascular offered: Patient declines. Tatiana is a 37 year old who presents for an annual gynecologic exam with [facility] - Telehealth treated for BV symptoms [...] L0 SAB0 IAB0 Ectopic0 Multiple0 Live Births0 First Coat Sander History LMP: 06/20/2021 (Exact Date), Having periods Age at Menarche: Age at First : Age at Menopause: First Coat Sander History Comments: Sexual Activity: Yes; Male Contraception: [...] external genitalia normal, normal Bartholin's glands, urethra, Satanta's glands, no vulvar lesions, no cervical lesions, [...] menstrual flow - will consider. Phoebe Cash APRN.[facility] History of Present illness Narrative 08-20-2022 Phoebe Cash APRN.OSWALD - 08/20/2022 9:26 AM EST Note Date & Type Note Facility 08-20-2022 History of Presen t illness Narrative Rn Vascular offered: Patient declines. Tatiana is a 37 [...] L0 SAB0 IAB0 Ectopic0 Multiple0 Live Births0 First Coat Sander History LMP: 06/20/2021 (Exact Date), Having periods Age at Menarche: Age at First : Age at Menopause: First Coat Sander History Comments: Sexual Activity: Yes; Male Contraception: [...] external genitalia normal, normal Bartholin's glands, urethra, Satanta's glands, no vulvar lesions, no cervical lesions, [...] Phoebe Cash APRN.CNP documented in this encounter [facility] Clinical Note 07-04-2022 Note Date & Type Note Facility 07-04-2022 Note HNO ID: [id number] Author: Sarah Seaman APRN.SUMMER SESSIONS DIRECTOR Service: ? Author Type: Nurse Flight Tower Dispatcher Type: Anesthesia Procedure Notes Filed: 07/04/2022 4:16 PM Note Text: ANESTHESIOLOGY PROCEDURE NOTE Airway General Information Procedure Start Time/Medication Administration: 07/04/2022 3:44 PM Procedure End Time: 07/04/2022 1:44 PM Patient location during procedure: OR Timeout Performed Pre-procedure: timeout performed Consent Obtained: Yes Patient identity confirmed: arm band and care swat team member Staffing Anesthesiologist: Mariella Martinez MD SUMMER SESSIONS DIRECTOR: Sarah Seaman APRN.SUMMER SESSIONS DIRECTOR Performed by: GUERLINE Indications and Patient Condition [...] no Airway not difficult SIGNATURE: Sarah Seaman APRN.SUMMER SESSIONS DIRECTOR PATIENT NAME: Tatiana Patton DATE: July 04, 2022 TIME: 4:15 PM CSN: [id number] [facility] Progress note 07-03-2022 Note Date & Type Note Facility 07-03-2022 Note HNO ID: [id number] Author: Echo Herrera RN Service: Nursing Author [...] directed. Bring copy of Living Will/Power of Senior Commissions Analyst. Do not smoke or chew. If you [...] the Surgery Center. UPON ARRIVAL: Access to [facility] is located on [address] [employer] parking is available for your convenience from [...] instructions for the morning of your procedure. [facility] Progress note 07-03-2022 Note Date & Type Note Facility 07-03-2022 Note HNO ID: [id number] Author: Ramandeep Mcgee APRN.ETCHER PHOTOENGRAVING Service: ? Author Type: Nurse Practitioner Type: [...] instructions for the morning of your procedure. [facility] Evaluation note Note Date & Type Note Facility documented in this encounter [facility] Summary Purpose Family History No Family History Records FoundNo Family History Records FoundNo Family History Records FoundNo Family History Records Found Advance Directives No Advanced Directives Records FoundNo Advanced Directives Records FoundNo Advanced Directives Records FoundNo Advanced Directives Records Found Additional Source Comments INFORMATION SOURCE (unrecogn ized section and content) DATE CREATED AUTHOR AUTHOR'S ORGANIZ ATION 09/12/2019 [facility] ([place]) DATE CREATED AUTHOR AUTHOR'S ORGANIZ ATION 07/05/2022 [facility] DATE CREATED AUTHOR AUTHOR'S ORGANIZ ATION 08/26/[address] [facility] Source Comments (unrecognize d section and content) In the event this informatio n is protected by the Federal Confidentiality of Alcohol and Drug Abuse Patient Records regulations: The Federal rules restrict any use of the information to criminally investigate or prosecute any alcohol or drug abuse patient.[facility] Reason for Visit (unrecogniz ed section and [...] BE BASED ON THE PRIMARY CLINICAL RECORDS. [employer] [facility]. provides no warranty or guarantee of the accuracy or completeness of information in this document.
--- NOTE | 2023-08-27 10:34 | PCM.OPRPT ---
Report of Operation Date of Procedure: 08/27/23 Pre-Operative Diagnosis: Right breast mass Post-Operative Diagnosis: Same Surgery/Procedure Performed:: Ultrasound-guided right breast biopsy Surgeon: Echo Niño Type of Anesthesia: Local Specimen's removed: Right breast 8:00 4 cm from the nipple Description of Procedure: Procedure: Right ultrasound-guided core biopsy Indications: 38year-old female with hypoechoic nodule in the duct possible papilloma at 8:00 in the right breast for centimeters from the nipple. Risk benefits were discussed the patient and she elected to proceed with ultrasound guided core biopsy with clip placement Description of procedure: Patient was brought into the ultrasound room in the right breast was marked. A timeout was completed verifying correct patient, procedure, site, specially, prior to beginning procedure. The right breast was prepped and draped in usual sterile fashion and using local anesthesia was obtained with 1% lidocaine with epi. The lesion was located with the ultrasound. Small incision was made with 11 blade to introduced the mammotome through the skin. Under ultrasound guidance multiple core samples were obtained using then 13-gauge mammotome and sent in formalin for pathology. The [employer]kbl[employer] dual ultra coil-clip was then deployed into the biopsy cavity under ultrasound guidance and a picture was taken. Upon completion procedure hemostasis was obtained and a Steri-Strip and OpSite were placed. Patient was then taken to the mammography suite for clip verification. The clip was verified. The patient tolerated the procedure well and was discharged from the breast imaging department good condition. Complications none
== END | disposition home or self-care (01) ==
LOC: OPUS 09:43
PROVIDERS: PCP Family Medicine; Referring Provider Surgery; Visit Provider Surgery
DX: N63.20 Unspecified lump in the left breast, unspecified quadrant (principal); D24.1 Benign neoplasm of right breast; N60.41 Mammary duct ectasia of right breast; N62 Hypertrophy of breast
CPT/HCPCS: 19083; 88305

== ENCOUNTER → 2023-09-11 | Outpatient (CLI) | payer OTHER, SELFPAY ==
--- NOTE | 2023-09-11 15:51 | CT_ITS ---
HISTORY: ATTENTION TO ADRENALS W/ HOUNSFIELD UNITS. TECHNIQUE: Helically acquired images were obtained of the abdomen before and after the intravenous administration of 100 mL Isovue 300 with delayed images also obtained. A radiation dose optimization technique was used for this scan. 474 images. COMPARISON: 11/25/2022, 12/13/2021. FINDINGS: LOWER CHEST: Lung bases clear. BOWEL: Bowel nondilated. Moderate stool in the colon. No pericolonic inflammation.. PERITONEUM: No significant free fluid or pathologically enlarged lymph nodes. LIVER: No enhancing mass. GALLBLADDER/BILIARY TREE: Gallbladder present. SPLEEN/PANCREAS: Homogeneous and nonenlarged. KIDNEYS: No nephrolithiasis or hydronephrosis. Normal enhancement. ADRENAL GLANDS: 1.8 cm right and 1.7 cm left low-attenuation nodules with greater than 50% washout on delayed images. VESSELS: No abdominal aortic aneurysm. OSSEOUS STRUCTURES: Intact CT/Abdomen W/WO IV Contrast IMPRESSION: No significant interval change in size of small bilateral adrenal adenomas. Electronically Signed: Muriel Olea MD at 15:42 EST ,
== END | disposition home or self-care (01) ==
LOC: CT 15:49
PROVIDERS: PCP Family Medicine; Referring Provider Internal Medicine Endocrinology, Diabetes & Metabolism; Visit Provider Internal Medicine Endocrinology, Diabetes & Metabolism
DX: D35.01 Benign neoplasm of right adrenal gland (principal); D35.02 Benign neoplasm of left adrenal gland
CPT/HCPCS: 74170; Q9967

== ENCOUNTER 2023-10-12 10:00 | Day surgery (SDC) | payer OTHER, SELFPAY ==
[2023-10-12] VITALS (9 sets, daily range): BP systolic 108–118; BP diastolic 74–86; PULSE 65–94; RESP 14–18; TEMP 36.6–36.9; O2SAT 95–100; BMI 28.6
[2023-10-12 10:31] LABS: Internal QC Validated? YES +Cl - CLEAR BKGD; Pregnancy, Urine Negative Negative; Record Kit Lot#,Urine Preg HCG0000718086
[2023-10-12] MEDS: Lactated Ringers 1,000 ML 15 ML IV (10:42)
--- NOTE | 2023-10-12 10:42 | HP.PCM_ITS ---
History and Physical Date of Admission: 10/12/23 Date of Service: 09/17/23 MR#: [id number] Acct: [id number] Name: RANCHO PATTON Rep #: [id number] : 1985 Provider: Dr. Echo Niño MD Age/Sex: 38/F Location: [facility] Status: Signed Intake Vital Signs 08/24/2409:00 09/17/2412:34 Height 5 ft 5 in 5 ft 5 in Weight: 169 lb 2 oz 170 lb BMI 28.1 28.3 BP 111/78 123/80 H Blood Pressure Location Lt brachial Rt brachial Position Sitting Sitting Respiration 17 18 Pulse 75 74 Pulse Source Monitor Monitor Temp 97.8 F 97.3 F L Temp Source Temporal Temporal Pulse Oximetry (%) 100 99 Oxygen Delivery Method room air room air Intake Visit Reasons: DISCUSS BREAST SURGERY Chief Complaint: F/U Breast biopsy 08/27/23 Practicing Urologist Required: No Is patient in pain?: No Allergies gluten Allergy (Severe, Verified 09/17/23 13:35) Abd cramps/diarrheaEnvironmental Allergies: Uncoded Allergy (Mild, Verified 09/17/23 13:35) RashSeasonal Allergies: Uncoded Allergy (Mild, Verified 09/17/23 13:35) Itchingcodeine Allergy (Verified 09/17/23 13:35) Unknown Medications cetirizine 10 mg capsule (Zyrtec) 10 mg PO DAILY 08/11/19 [History Confirmed 09/17/23] famotidine 40 mg tablet (Pepcid) 20 mg PO DAILY 08/11/19 [History Confirmed 09/17/23] calcium acetate-magnesium carb 300 mg-300 mg tablet 1 tab PO DAILY 11/09/21 [History Confirmed 09/17/23] melatonin 5 mg tablet 5 mg PO QHS 11/09/21 [History Confirmed 09/17/23] cyanocobalamin (vitamin B-12) 1,000 mcg tablet (Vitamin B-12) 1,000 mcg PO QODAY 02/26/22 [History Confirmed 09/17/23] ferrous sulfate 142 mg (45 mg iron) tablet,extended release (Slow Fe) 142 mg PO DAILY 02/26/22 [History Confirmed 09/17/23] glucosamine sulf dipot chlr,msm,chond 550 mg-C 30 mg-harjinder 1 mg capsule (Glucosamine Chondroitin) 1 cap PO DAILY 02/26/22 [History Confirmed 09/17/23] lactobacillus combination no.4 3 billion cell capsule (Probiotic) 3,000 mmu cells PO DAILY 02/26/22 [History Confirmed 09/17/23] pantoprazole 40 mg tablet,delayed release (Protonix) 40 mg PO DAILY 02/26/22 [History Confirmed 09/17/23] prenat.vits,cande,wxi-njht-nhkto 1 tab PO DAILY 02/26/22 [History Confirmed 09/17/23] turmeric 100 mg-syd 150 mg-olive 50 mg-oreg 150 mg-capryl capsule cap PO 02/26/22 [History Confirmed 09/17/23] vit C,X-Up-idnbhb-lutein-zeaxan 60 mg-13.5 mg-15 mg-2 mg-6 mg capsule (Ocuvite Lutein and Zeaxanthin) 1 cap PO DAILY 02/26/22 [History Confirmed 09/17/23] vitamin D3 25 mcg (1,000 unit)-vit K2 90 mcg disintegrating tablet 1 tab PO DAILY 02/26/22 [History Confirmed 09/17/23] krill oil 500 mg capsule mg PO 08/24/23 [History Confirmed 09/17/23] PFSH Medical History (Updated 09/21/23 @ 13:[address] Echo Niño MD) Abdominal pain Alcohol use Breast mass, right Celiac disease Celiac disease Chronic diarrhea Environmental allergies Gastroesophageal reflux disease Intraductal papilloma Low iron breast pain Runny nose Sinusitis, acute Wears contact lenses Wears glasses Surgical History (Updated 09/17/23 @ 13:34 by Edna Magallanes) History of breast biopsy Hx of esophagogastroduodenoscopy Hx of tonsillectomy Social History Smoking Status: Never smoker alcohol intake: current alcohol intake frequency: holidays/special occasions only substance use type: does not use HPI HPI HPI: 39-year-old female presents status post right breast biopsy. Pathology showed intraductal papilloma with focal intraductal hyperplasia no atypia. Patient denies any further discomfort in her lateral right breast. Office bedside ultrasound able to see the clip in the lesion to allow for ultrasound-guided needle localization in the OR. ROS Breast Breast: Yes breast pain and abnormal US Gastro Gastrointestinal: Yes diarrhea and Yes acid reflux Exam Const General: cooperative, healthy appearing and no acute distress HENMT Head: normal to inspection Chest Other: Right breast: Biopsy site healing well. Bedside ultrasound able to see clip and lesion to allow for ultrasound-guided needle localization. Resp Effort & Inspection: normal respiratory effort Cardio Rate: regular rate GI Inspection: non-distended Palpation: soft Skin General: no rashes or lesions noted Neuro General: patient oriented x3 Extrem General: no clubbing, cyanosis or edema Psych Affect: normal affect Assessment and Plan Assessment and Plan (1) Intraductal papilloma of right breast: Status: Acute Plan Plan for an excisional right breast biopsy with ultrasound needle localization. Discussed procedure with patient including risk but not limited to bleeding, infection, need for further surgery. Patient was agreeable with plan. Echo Niño M.D. Pager: [phone] [facility] [address] [place] [address], [facility], [address] [place] [address] Office: [phone] Coding Level of Care Code Off vis,est,level 3 Diagnoses Intraductal papilloma of right breast D24.1 09/21/23 1325 <Electronically signed by Echo Niño MD> Date Echo Niño MD
[2023-10-12] MEDS: Cefazolin 2 GM in 0.9% Normal Saline (100mL Bag) 100 ML IV (11:14)
--- NOTE | 2023-10-12 12:00 | BRBX_PTH ---
PATHOLOGY RESULTS PATIENT: RANCHO PATTON LOC: [facility] U#:[id number] AGE/SX: 38/F ROOM: RE10/12/[address]: Dr. Echo Niño MD : 1985 BED: DIS: 10/12/2023 SPEC #: [id number] RECD: 10/12/23 12:13 STATUS: TISH REQ #: [id number] AARON: 10/12/23 12:[address]: Echo Niño DEPT: SURGICAL PATHOLOGY RECD BY: Kathleen Fuentes ENTERED: 10/12/23 13:43 SP TYPE: BREAST BX OTHR DR: Dr. Michele Webber MD Tissues: Right breast, NOS Right breast, NOS Right breast, NOS Procedures: Frozen Section (charge) Frozen Section Add'l ([facility]) Surgery Specimen Level V HEADER OPERATION: Wire localization right excisional breast, lumpectomy PRE-OP DIAGNOSIS: Intraductal papilloma of right breast TISSUE SUBMITTED: A - Right breast tissue, long stitch - lateral, short tag - superior, B - Additional right breast tissue, long tag - lateral, short tag - superior, C - Additional right breast tissue, long tag - lateral, short tag - superior for frozen section FROZEN SECTION DIAGNOSIS C. Additional right breast tissue, excisional biopsy: Biopsy site and clip are noted. SHARON:sarina 10/12/2023 Case has been reviewed in consultation with Dr. Wells who concurs with the above diagnosis. IDC:AM MICROSCOPIC DIAGNOSIS A. Right breast tissue, lumpectomy, excision with needle localization: Fibrocystic changes, focal adenosis and intraductal hyperplasia without atypia. Focal ductal dilatation. Focal fat necrosis and inflammation consistent with previous biopsy related changes. Negative for malignancy. B. Additional right breast tissue excisional biopsy: Focal intraductal hyperplasia with atypia. Negative for malignancy. C. Additional right breast tissue excisional biopsy: Negative for residual intraductal papilloma. Focal changes consistent with previous biopsy site. Negative for atypia or malignancy. SHARON/ 10/15/2023 COMMENT Please make reference to previous specimen. ([id number]) Right breast 8 o'clock, ultrasound-guided biopsy with diagnosis of intraductal papilloma, focal intraductal hyperplasia without atypia, mild duct ectasia and apocrine metaplasia. Case has been reviewed in consultation with Dr. Wells who concurs with the above diagnosis. IDC:AM MICROSCOPIC DESCRIPTION Slides are reviewed. GROSS DESCRIPTION A - Received fresh and post-fixed in formalin is one container labeled with the patient's name and designated right breast tissue. The specimen consists of a piece of fibroadipose tissue with needle localization measuring 4.0 x 3.0 x 1.2 cm. The specimen is inked as follows: anterior - yellow, posterior - black, superior - blue, inferior - green, medial - red and lateral - orange. The specimen is serially sectioned from superior to inferior margin and submitted entirely in seven cassettes. Cassette 1 contains the most superior portion and cassette 7 contains the most inferior portion. Sections will be submitted after additional fixation. / SJ:sarina 10/13/2023 B - Received fresh and post-fixed in formalin is one container labeled with the patient's name and designated additional right breast tissue. The specimen consists of a piece of fibroadipose tissue with needle localization measuring 2.0 x 2.0 x 1.5 cm. The specimen is disrupted in the central portion. The specimen is inked as follows: anterior - green, posterior - black, superior - blue over black, inferior - yellow, medial - red and lateral - orange. The specimen is serially sectioned and reveal colbert-yellow adipose cut surfaces mixed with focal fibrous areas. The entire specimen is submitted in four cassettes as follows: 1 - perpendicular medial and lateral margins, 2-4 - rest of the specimen. / SJ:sarina 10/13/2023 C - Received fresh for frozen section diagnosis labeled with the patient's name is a specimen designated additional right breast tissue. The specimen consists of a piece of colbert-yellow fibroadipose tissue with needle localization measuring 2.0 x 2.0 x 0.6 cm. The specimen is oriented as follows: short suture - superior, long suture - lateral. The specimen is inked as follows: anterior - yellow, posterior - black, superior - blue, inferior - green, medial - red and lateral - orange. The specimen is serially sectioned and shows a metallic clip. The entire specimen is submitted for frozen section diagnosis in three cassettes. / SJ:rg 10/13/2023 TC: 5 CPT: 56802c6, 83640, 22208i8 ADDENDUM ADDENDUM 11/04/2023 08:48 This addendum is added to incorporate an outside pathology consultation report per Dr. Niño's request. The case was examined at [facility] (#[id number]) and the following diagnosis was rendered. INTERPRETATION: A. Right breast: Fibrocystic changes, ductal dilatation, focal hyperplasia without atypia. Focal fat necrosis. Negative for malignancy. B. Right breast additional: Fibrocystic changes, focal intraductal hyperplasia without atypia. Negative for malignancy. C. Right breast additional: Fibrocystic changes. Negative for malignancy. Focal changes consistent with previous biopsy site. Please see complete above mentioned consultation report in EMR
--- NOTE | 2023-10-12 12:02 | BI_ITS ---
SURGICAL BREAST SPECIMEN RADIOGRAPH CLINICAL: Document presence of mass in biopsy specimen. FINDINGS: Specimen shows presence of mass. Electronically Signed: Kyler Hess MD at 13:40 EDT , BI/Breast Biopsy Specimen IMPRESSION: undefined
--- NOTE | 2023-10-12 12:03 | PCM.OPRPT ---
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 Right breast mass?first second specimen only had a wire no clip, third specimen had the clip and likely lesion. Estimated Blood Loss (mL): <10 cc Description of Procedure: the patient was taken to the operating room and general anesthesia was induced. The right breast and axilla were prepped and draped in usual sterile fashion. A timeout was completed verifying correct patient, procedure, site, positioning, special equipment prior to beginning procedure. Ultrasound was use for localization of the breast mass using the BARD's needle. The wire was placed just inferiorly to the clip. A radial incision was planned in such a way as to minimize the amount of dissection to reach the mass. Flaps were raised in the location of the wire confirmed. The wire was delivered into the wound. 2 silk [id number] stay suture was placed around the wire and used for traction. Dissection was then taken down circumferentially, taking care to include the entire localization needle and wide margin of grossly normal tissue. The specimen and entire localizing wire were removed. The specimen was oriented and sent to radiology with the localization studies. Initially the first 2 specimens did not have the clip. Additional ultrasound wire localization was used to try to identify the clip. The third specimen did have the clip confirmed and pathology did confirm biopsy cavity. Confirmation was received that the entire target lesion had been resected. The cavity was irrigated. Hemostasis was checked. The breast incision was closed with interrupted sutures of 3-0 Vicryl and subcuticular sutures of 4-0 Monocryl. No attempt was made to close the space. Steri-Strips and OpSite, supportive bra placed. The patient tolerated procedure well was taken to the postanesthesia care in stable condition Complications none
[2023-10-12] MEDS: Bupivacaine 0.25% 30 ML Vial (12:05)
--- NOTE | 2023-10-12 13:14 | DCINST_ITS ---
Discharge Instructions Diet Discharge Diet: No restrictions Activity Discharge Activity: May Not Drive (for 2-3 days or while taking narcotic pain meds.) May shower in (days): 1 Lifting Restrictions: 10 pounds for 1 week. Dressing / Incision Call your doctor if your incision/area has: Continuous Slow Oozing, Sudden Increased Bleeding, Increased Pain/ Swelling and Increased Redness Call your doctor if you observe: Fever of 101 or Higher Suture Line Care: Avoid Pulling/Pushing and Avoid Pinching/Bending Remove Dressing in: 1 day Additional Dressing/Incision Instructions:: Remove bulky dressing tomorrow. May leave op-site dressing for 3-4 days. Okay to remove Steri-Strips from the breast incision in 7 to 10 days. Follow Up Care Please Follow Up With: Echo Nioñ MD When: Please call [phone] for an appointment to be seen in 2 week. Test Results: Test results from this visit will be discussed in further detail at your follow- up appointment, if applicable. Discharge Plan Admission Attending Provider: Echo Niño Primary Care Provider: Michele Webber Discharge Orders/Prescriptions Prescriptions: Continued famotidine [Pepcid] 40 mg tablet 20 mg PO BID krill oil 500 mg capsule 1,000 mg PO DAILY calcium acetate-magnesium carb 300-300 mg Tablet 1 tab PO DAILY Rx Instructions: 500mg-250 melatonin 5 mg Tablet 5 mg PO QHS cyanocobalamin (vitamin B-12) [Vitamin B-12] 1,000 mcg Tablet 1,000 mcg PO QODAY vitamin D3-vitamin K2 1000-90 unit-mcg Tablet,Disintegrating 1 tab PO DAILY Slow Fe 142 mg (45 mg iron) Tablet Extended Release 142 mg PO DAILY Probiotic 3 billion cell Capsule 3,000 mmu cells PO DAILY Rx Instructions: administer with a meal loratadine [Claritin] 10 mg tablet 10 mg PO DAILY multivitamin Tablet 1 tab PO DAILY slippery elm bark 400 mg capsule 400 mg PO DAILY Referrals / Follow Up: Michele Webber MD [Primary Care Provider] - Disposition Disposition (needs filled in before D/C Order can be placed): Home, Self Care
== END 2023-10-12 14:46 | disposition home or self-care (01) ==
LOC: SDC 10:01 → AC 10:02
PROVIDERS: Anesthesiology; PCP Family Medicine; Referring Provider Family Medicine; Visit Provider Surgery
PROC: (CPT 19301; principal; 2023-10-12 11:15)
DX: D24.1 Benign neoplasm of right breast (principal); N62 Hypertrophy of breast; N60.21 Fibroadenosis of right breast; E61.1 Iron deficiency
CPT/HCPCS: 19083; 00400; 76098; 81025; 88305; 88307; 88331; 88332; A4648; J7120; J2405

== ENCOUNTER → 2024-02-02 | Outpatient (CLI) | payer OTHER, SELFPAY ==
[2024-02-02 09:20] LABS: AST(SGOT) 18 U/L (15-37); Alanine Aminotransfer ALT/SGPT 22 U/L (13-56); Albumin, Serum 3.8 g/dL (3.2-5.0); Alkaline Phosphatase 81 U/L (45-117); Anion Gap 5 (5-15); BUN 9 mg/dL (7-18); BUN/Creat Ratio 10.7 RATIO (10-20); Calcium,Total 9.1 mg/dL (8.5-10.1); Chloride 107 mmol/L (98-107); Creatinine, Serum 0.84 mg/dL (0.55-1.02); EST Glomerular Filtration Rate 81 mL/min (>60); Est Glom Filt Rate - Afr Amer 98 mL/min (>60); Globulin 3.7 g/dL (2.2-4.2); Glucose 86 mg/dL (74-106); Protein, Total 7.5 g/dL (6.4-8.2); Sodium Level 139 mmol/L (136-145)
[2024-02-02 11:06] LABS: 24HR. Urine Creatinine 1.39 g/24 HR (0.70-1.90)
[2024-02-04 13:25] LABS: Vitamin D,25 Hydroxy 74.1 ng/mL
[2024-02-09 17:08] LABS: Cortisol, Free 24Ur 17 ug/24 hr (6-42); Cortisol, Urinary Free 6 ug/L (Undefined); DHEA Sulfate 47.9 ug/dL (57.3-279.2); Metanephrine, Ur 19 ug/L (Undefined); Metanephrines, 24Ur 54 ug/24 hr (36-209); Normetanephrines, 24Ur 214 ug/24 hr (131-612); Normetanephrines, Ur 75 ug/L (Undefined)
== END | disposition home or self-care (01) ==
LOC: LAB 07:51
PROVIDERS: PCP Family Medicine; Referring Provider Internal Medicine Endocrinology, Diabetes & Metabolism; Visit Provider Internal Medicine Endocrinology, Diabetes & Metabolism
DX: E04.0 Nontoxic diffuse goiter (principal); E55.9 Vitamin D deficiency, unspecified; D35.01 Benign neoplasm of right adrenal gland; D35.02 Benign neoplasm of left adrenal gland
CPT/HCPCS: 36415; 80053; 82306; 82530; 82570; 82627; 83835; 82626

== ENCOUNTER → 2024-08-12 | Outpatient (CLI) | payer OTHER, SELFPAY ==
[2024-08-12 08:20] LABS: ALB/GLOB Ratio 1.1 RATIO (0.9-2.4); AST(SGOT) 15 U/L (15-37); Alanine Aminotransfer ALT/SGPT 27 U/L (13-56); Albumin, Serum 3.8 g/dL (3.2-5.0); Alkaline Phosphatase 74 U/L (45-117); Anion Gap 2 (5-15); BUN 7 mg/dL (7-18); BUN/Creat Ratio 7.8 RATIO (10-20); Calcium,Total 9.4 mg/dL (8.5-10.1); Chloride 107 mmol/L (98-107); EST Glomerular Filtration Rate 75 mL/min (>60); Est Glom Filt Rate - Afr Amer 91 mL/min (>60); Globulin 3.6 g/dL (2.2-4.2); Glucose 101 mg/dL (74-106); Potassium 3.8 mmol/L (3.5-5.1); Protein, Total 7.4 g/dL (6.4-8.2); Sodium Level 137 mmol/L (136-145)
[2024-08-13 08:10] LABS: DHEA Sulfate 46.8 ug/dL (57.3-279.2)
== END | disposition home or self-care (01) ==
LOC: LAB 07:17
PROVIDERS: PCP Family Medicine; Referring Provider Physician Assistant; Visit Provider Physician Assistant
DX: D35.02 Benign neoplasm of left adrenal gland (principal)
CPT/HCPCS: 36415; 80053; 82627; 82626

== ENCOUNTER → 2025-01-20 | Outpatient (CLI) | payer OTHER, SELFPAY ==
--- OUTSIDE RECORDS SUMMARY | 2025-01-20 07:42 | XMS RPT_ITS | CCD ---
Author Organization [facility] Care Team Providers Care Wood Miller Name Role Phone Carlos Cleary Unavailable Unavailable Carlos Cleary Unavailable Unavailable UNKNOWN, PROVIDER Unavailable Unavailable Christiane TIRE FINISHER, TIRE FINISHER-C Gloria Harry Attending Provider [phone] CHUCKY MCNAMARA Primary Care Provider Unavailabl CHUCKY Shepard Referring Provider Unavailable CHUCKY MCNAMARA Primary Care Provider CHUCKY MCNAMARA Referring Provider Friend, Dr. Donahue Attending Provider [phone] Friend, Dr. Donahue Other Provider CHUCKY MCNAMARA Primary Care Provider Unavailabl e CHUCKY MCNAMARA Referring Provider Unavailable APPLE, DANII Admitting Unavailable APPLE, DANII Attending Unavailable Michele Madden MD Primary Care Provider MICHELE MADDEN Primary Care Unavailable PHOEBE PIERSON Attending Unavailable Christiane TIRE FINISHER, TIRE FINISHER-C Gloria Harry Attending Provider Dr. Michele Madden Primary Care Provider Dr. Michele Madden Referring Provider SHADY Rai Attending Provider Dr. Echo Niño Attending Provider [phone] Dr. Michele Madden Primary Care Provider Dr. Michele Madden Referring Provider Dr. Echo Niño Referring Provider Dr. Echo Niño Other Provider SHADY Rai Attending Provider Dr. Echo Niño Attending Provider Dr. Michele Madden Primary Care Provider Dr. Michele Madden Referring Provider Dr. Echo Niño Referring Provider Dr. Echo Niño Other Provider Madden, Michele Primary Care Unavailable Mp CARUSO, Mary Kay Attending Unavailable Mary Kay Barnett Referring Unavailable Madden, Michele Primary Care Unavailable Robotham, Echo Attending Unavailable Madden, Michele Referring Unavailable Madden, Michele Primary Care Unavailable RobotEcho josé Consulting Unavailable Robotestefanía, Echo Attending Unavailable Madden, Michele Referring Unavailable Madden, Michele Primary Care Unavailable [place] Attending Unavailable Madden, Michele Referring Unavailable Wietecha, Xavier Attending Unavailable Wietecha, Xavier Referring Unavailable Madden, Michele Primary Care Unavailable Madden, Michele Primary Care Unavailable Robotestefanía, Echo Attending Unavailable Madden, Michele Referring Unavailable RobotEcho josé Attending Unavailable Madden, Michele Primary Care Unavailable Madden, Michele Referring Unavailable Madden, Michele Primary Care Unavailable Assessment, Health Risk Attending Unavaila ble Assessment, Health Risk Referring Unavaila ble Wietecha, Xavier Referring Unavailable Madden, Michele Primary Care Unavailable Wietecha, Xavier Attending Unavailable Allergies Allergy Classification Reported Allergen(s) Allergy Type Date of Onset Reaction(s) Facility (19 sources) Codeine; Translations: [CODEINE] Drug Allergy 9 Swelling, Anaphylaxis [facility] Repository (2 sources) Adrenergic Beta-Antagonists; Translations: [BETA-BLOCKERS (BETA-ADRENERGIC BLOCKING AGTS)] Propensity to adverse reactions to drug (disorder) 3 [facility] Repository (7 sources) Gluten; Translations: [GLUTEN] Propensity to adverse reactions to drug (disorder) 2 Other: See Comments [facility] Repository (2 sources) OTHER; Translations: [OTHER] Propensity to adverse reactions (disorder) 9 [facility] Rep[facility] (1 source) Environmental allergies [Other] Propensity to adverse reactions 9 [facility] (4 sources) Environmental Allergies: Uncoded; Translations: [Environmental Allergies: Uncoded] Allergy to substance 4 Rash [facility] (4 sources) Seasonal Allergies: Uncoded; Translations: [Seasonal Allergies: Uncoded] Allergy to substance 4 Itching [facility] (1 source) Codeine Drug Allergy 4 [facility] Repository Medications Current Medications Medication Drug Class(es) Dates Sig (Normalized) Sig (Original) ascorbic acid 60 mg / cuprous oxide 2 mg / dl-alpha tocopheryl acetate 30 mg / lutein 6 mg / zinc oxide 15 mg oral capsule (11 sources) Vitamin C Start: 02-26-2022 take 1 capsule by mouth once daily Vit C,D-Ri-Zljjv-Lutei n-Zeaxan (Ocuvite Lutein And Zeaxanthin) 60 mg-13.5 mg- 15 mg-2 mg-6 mg Capsule Active 1 CAP PO DAILY February 25, 2022 11:00pm Calcium Acetate-Magnesium Carb (16 sources) Start: 11-09-2021 take 1 tablet by mouth once daily Calcium Acetate-Magnesium Carb Active 500 TABLET PO DAILY November 09, 2021 1:03am Start: 11-09-2021 take 1 tablet by arnold th once daily Calcium Acetate-Magnesium Carb Active 1 TABLET PO DAILY November 08, 2021 11:00pm 500mg-250 Start: 11-09-2021 take 1 tablet by arnold th once daily Calcium Acetate-Magnesium Carb Active 1 TABLET PO DAILY November 09, 2021 12:00am 500mg-250 cetirizine hydrochloride 10 mg oral capsule (16 sources) Histamine-1 Receptor Antagonist Start: 08-11-2019 take 1 capsule by mouth once daily Cetirizine (Zyrtec) 10 mg capsule Active 10 MG PO DAILY August 11, 2019 12:00am Start: 05-03-2009 take 1 tablet by arnold th once daily in the morning CETIRIZINE 10 MG TAB Indications: Acute atopic conjunctivitis , Allergic rhinitis due to pollen , Allergic rhinitis due to other allergen , Allergic rhinitis due to animal dander Take 10 mg by mouth every morning. 0 05/03/2009 Active Comment on above: Take 10 mg by mouth every morning. cholecalciferol 1000 unt / vitamin k2 0.09 mg disintegrating oral tablet (12 sources) Vitamin D Start: 2 take 1 tablet by mouth once daily Vitamin D3-Vitamin K2 Active 1 TABLET PO DAILY February 26, 2022 12:00am cobamamide 0.1 mg / vitamin b12 5 mg sublingual tablet (4 sources) Vitamin B12 Start: 2 Cyanocobalamin-Cob amamide (B12) 5,000-100 mcg Lozenge Active LOZENGE SL DAILY November 09, 2021 1:03am famotidine 40 mg oral tablet (17 sources) Histamine-2 Receptor Antagonist Start: 0 take 1 tablet by mouth once daily Famotidine (Pepcid) 40 mg tablet Active 40 MG PO DAILY August 11, 2019 9:11am Start: 08-11-2019 Famotidine (Pe pcid) 40 mg tablet Active 20 MG PO TWICE A DAY August 11, 2019 1:00am Start: 08-11-2019 Famotidine (Pe pcid) 40 mg tablet Active 20 MG PO DAILY August 11, 2019 12:00am take 1 tablet by arnold twice daily famotidine (PEPCID) 20 mg tablet Take 20 mg by mouth twice daily. 0 Active Comment on above: Take 20 mg by mouth twice daily. ferrous sulfate 159 mg extended release oral tablet (13 sources) Start: 02-26-2022 take 1 tablet by mouth once daily Ferrous Sulfate (Slow Fe) 142 mg (45 mg iron) Tablet Extended Release Active 142 MG PO DAILY February 26, 2022 12:00am Start: 02-26-2022 take 1 tablet by mouth once da shanell Ferrous Sulfate (Slow Fe) 142 mg (45 mg iron) Tablet Extended Release Active 142 MG PO DAILY February 25, 2022 11:00pm take 45 mg by mouth once daily in the morning Ferrous Sulfate (SLOW FE) 142 mg (45 mg iron) TbER Take 45 mg by mouth every morning. 0 Active Comment on above: Take 45 mg by mouth every morning. Glucos Sul 8mwr-Bzs-Gjchq-C-M n (Glucosamine Chondroitin) 550-30-1 mg Capsule (11 sources) Start: 02-26-2022 take 1 capsule by mouth once daily Glucos Sul 5uoy-Ijc-Ifzzj-C-Mn (Glucosamine Chondroitin) 550-30-1 mg Capsule Active 1 CAP PO DAILY February 25, 2022 11:00pm Glucosamine with tumeric Start: 02-26-2022 take 1 capsule by mo uth once daily Glucos Sul 1bpg-Nod-Ghazg-C-Mn (Glucosamine Chondroitin) 550-30-1 mg Capsule Active 1 CAP PO DAILY February 26, 2022 12:00am Glucosamine with tumeric krill oil 500 mg oral capsule (3 sources) Start: 08-24-2023 take 1000 mg by mouth once daily Krill Oil Active 1000 MG PO DAILY August 24, 2023 1:00am Start: 08-24-2023 Krill Oil Acti ve MG PO August 24, 2023 12:00am Lactobacillus Combination No.4 (Probiotic) 3 billion cell Capsule (12 sources) Start: 02-26-2022 take 3 capsules by mouth once daily Lactobacillus Combination No.4 (Probiotic) 3 billion cell Capsule Active 3000 MMU CELLS PO DAILY February 25, 2022 11:00pm administer with a meal Start: 02-26-2022 take 3 capsules by out once daily Lactobacillus Combination No.4 (Probiotic) 3 billion cell Capsule Active 3000 MMU CELLS PO DAILY February 26, 2022 12:00am administer with a meal loratadine 10 mg oral tablet (1 source) Start: 10-05-2023 take 1 tablet by mouth once daily Loratadine (Claritin) 10 mg tablet Active 10 MG PO DAILY October 05, 2023 1:00am melatonin 5 mg oral tablet (17 sources) Start: 11-09-2021 take 5 mg by mouth at bedtime Melatonin Active 5 MG PO AT BEDTIME November 09, 2021 12:00am take 5 mg by mouth once daily at bedtime melatonin 5 mg ODT Take 5 mg by mouth daily at bedtime. 0 Active Comment on above: Take 5 mg by mouth d aily at bedtime. Multivitamin preparation (1 source) Start: 4 take 1 tablet by mouth once daily Multivitamin Active 1 TABLET PO DAILY October 05, 2023 1:00am Prenat.Vits,Cande,Min-Ir on-Folic ( Vitamin) Tablet (11 sources) Start: 2 take 1 tablet by mouth once daily Prenat.Vits,Cande,Min-I charity-Folic ( Vitamin) Tablet Active 1 TABLET PO DAILY February 25, 2022 11:00pm Start: 02-26-2022 take 1 tablet by arnold th once daily Prenat.Vits,Cande,Scj-Jlap-Dwzlu ( Vitamin) Tablet Active 1 TABLET PO DAILY February 26, 2022 12:00am Slippery Elm Bark (1 source) Start: 10-05-2023 take 400 mg by mouth once daily Slippery Elm Bark Active 400 MG PO DAILY October 05, 2023 1:00am sucralfate 1000 mg oral tablet (3 sources) Aluminum Complex Start: 12-04-2021 take 1 g by mouth at bedtime Sucralfate Active 1 GM PO before meals and at bedtime 120 December 04, 2021 10:21am Zcipurb-Cscz-Kovee -Oreg-Capryl (7 sources) Start: 02-26-2022 Cezapfl-Xzqp-K live-Or eg-Capryl Active CAP PO February 26, 2022 12:00am Phjpwdlx-Tntr-Irav t-Cmvm-Mabqt (4 sources) Start: 02-26-2022 Turmeric-Ging- [place]-O reg-Capry Active CAP PO February 25, 2022 11:00pm vitamin b12 1 mg oral tablet (13 sources) Vitamin B12 Start: 02-26-2022 take 1 tablet by mouth every other day Cyanocobalamin (Vitamin B-12) (Vitamin B-12) 1,000 mcg Tablet Active 1000 MCG PO EVERY OTHER DAY February 26, 2022 12:00am take 1 tablet by arnold th once daily in the morning Cyanocobalamin 2,500 mcg subl Take 1 tab let by mouth every morning. 0 Active Comment on above: Take 1 tablet by arnold th every morning. Completed/Discontinued Medications Medication Drug Class(es) Dates Sig (Normalized) Sig (Original) amoxicillin 875 mg / clavulanate 125 mg oral tablet (16 sources) Penicillin-class Antibacterial Start: 08-11-2019 End: 08-21-2019 take 1 tablet by mouth every twelve hours Amoxicillin-Pot Clavulanate (Augmentin) 875-125 mg tablet Discontinued 1 TABLET PO Q12H 22 05August 11, 2019 1:00am August 21, 2019 1:08am Ca carb-Ca gluc-Mg ox-Mg gluco (CALCIUM MAGNESIUM) 500 mg calcium -250 mg tab (1 source) take 1 tablet by mouth twice daily Ca carb-Ca gluc-Mg ox-Mg gluco (CALCIUM MAGNESIUM) 500 mg calcium -250 mg tab Take 1 tablet by mouth twice daily. 0 Active Comment on above: Take 1 tablet by arnold th twice daily. cholecalciferol, vitD3,/vit K2 (VITAMIN D3-VITAMIN K2 ORAL) (1 source) take 1 tablet by mouth once daily in the morning cholecalciferol, vitD3,/vit K2 (VITAMIN D3-VITAMIN K2 ORAL) Take 1 tablet by mouth every morning. 0 Active Comment on above: Take 1 tablet by arnold th every morning. Collagen (1 source) End: 08-20-2022 COLLAGEN MISC Take by mouth every morning. 0 08/20/2022 Discontinued Comment on above: Take by mouth every morning. olopatadine (1 source) Histamine-1 Receptor Inhibitor olopatadine (PATADAY ONCE DAILY RELIEF) 0.7 % Use in both eyes as needed. 0 Active Comment on above: Use in both eyes as needed. pantoprazole 40 mg delayed release oral tablet (20 sources) Proton Pump Inhibitor Start: 12-04-2021 End: 02-26-2022 Pantoprazole (Protonix) 40 mg tablet,delayed release (DR/EC) Discontinued 40 MG PO TWICE A DAY 120 December 04, 2021 10:20am February 26, 2022 12:42pm take one pill twice a day for 2 months, then resume once daily dosing Start: 12-04-2021 End: 12-04-2021 take 1 tablet by mouth once daily Pantoprazole (Protonix) 40 mg tablet,delayed release (DR/EC) Discontinued 40 MG PO DAILY December 04, 2021 12:00am December 04, 2021 10:22am polaprezinc, zinc carnosine, (PEPZINGI ORAL) (1 source) End: 08-20-2022 take 1 tablet by mouth once daily in the morning polaprezinc, zinc carnosine, (PEPZINGI ORAL) Take 1 tablet by mouth every morning. 0 08/20/2022 Discontinued Comment on above: Take 1 tablet by arnold th every morning. Problems Active Problems Problem Classification Problem Date Documented Da te Episodic/Chronic Abdominal pain (20 sources) Abdominal pain; Translations: [Unspecified abdominal pain] Episodic Cardiac dysrhythmias (16 sources) Atrial tachycardia; Translations: [Supraventricular tachycardia] 11-17-2021 Chronic Esophageal disorders (20 sources) Gastroesophageal reflux disease; Translations: [Gastro-esophageal reflux disease without esophagitis] Chronic Fluid and electrolyte disorders (16 sources) Acute hypokalemia; Translations: [Hypokalemia] 11-17-2021 Episodic Noninfectious gastroenteritis (20 sources) Chronic diarrhea; Translations: [Noninfective gastroenteritis and colitis, unspecified] Episodic Nonmalignant breast conditions (4 sources) Breast lump; Translations: [Unspecified lump in the right breast, unspecified quadrant] 08-24-2023 Episodic Other and unspecified benign neoplasm (1 source) Intraductal papilloma of right breast; Translations: [Benign neoplasm of right breast] 09-21-2023 Episodic Other and unspecified benign neoplasm (1 source) Benign neoplasm of left adrenal gland; Translations: [Benign neoplasm of left adrenal gland] Onset: 5 Episodic Other circulatory disease (16 sources) Nasal discharge; Translations: [Other specified symptoms and signs involving the circulatory and respiratory systems] 11-28-2020 Episodic Other complications of ; puerperium affecting management of mother (3 sources) Pain of breast; Translations: [Other disorders of breast associated with and the puerperium] 08-24-2023 Episodic Other female genital disorders (1 source) Pruritus of vagina; Translations: [Other specified noninflammatory disorders of vagina] Episodic Other gastrointestinal disorders (12 sources) Celiac disease; Translations: [Celiac disease] 03-20-2022 Chronic Other gastrointestinal disorders (6 sources) Celiac disease; Translations: [Celiac disease] Chronic Other upper respiratory disease (1 source) Allergic rhinitis; Translations: [Allergic rhinitis, unspecified] Onset: 9 05-29-2009 Chronic Other upper respiratory infections (16 sources) Acute sinusitis; Translations: [Acute sinusitis, unspecified] 08-11-2019 Episodic Prolapse of female genital organs (2 sources) Cystocele and rectocele co-occurrent with incomplete uterovaginal prolapse; Translations: [Incomplete uterovaginal prolapse] Onset: 1 Chronic Residual codes; unclassified (1 source) Encounter for cosmetic surgery; Translations: [Encounter for cosmetic procedure] Onset: 2 Episodic Thyroid disorders (17 sources) Hypothyroidism; Translations: [Hypothyroidism, unspecified] Onset: 4 11-17-2021 Chronic Unclassified (1 source) Unknown / UNK(Unknown) Onset: 7 Past or Other Problems Problem Classification Problem Date Documented Da te Episodic/Chronic Other and unspecified benign neoplasm (2 sources) Benign neoplasm of right breast; Translations: [Benign neoplasm of breast] Onset: 10-19-2023 09-17-2023 Episodic Other and unspecified benign neoplasm (1 source) Benign neoplasm of right adrenal gland; Translations: [Benign neoplasm of right adrenal gland] Onset: 09-16-2023 Episodic Unclassified (1 source) WITH CONTRACTIONS Onset: 2017 Results Test Name Value Interpretation Reference Range Facility DHEA Sulfateon 08-13-2024 DHEA SULFATE 46.8 ug/dL Low 57.3-279.2 [facility] Comment on above: Order Comment: N Result Comment: Perf ormed at: [facility] [address] [id number] Senior Policy Advisor: Alvin Delong PhD, Phone: [phone] Performed By: #### L 3300.1500, L500.4050 #### [facility] [address] [place], [address] Comprehensive Metabolic Prof ilon 08-12-2024 Albumin [Mass/Vol] 3.8 g/dL Normal 3.2-5.0 [facility] Comment on above: Performed By: #### L 3300.1500, L500.4050 #### [facility] [address] [place], [address] Albumin/Globulin [Mass ratio] 1.1 {ratio} Normal 0.9-2.4 [facility] Comment on above: Performed By: #### L 3300.1500, L500.4050 #### [facility] [address] [place], [address] ALK P 74 U/L Normal 45-117 [facility] Comment on above: Performed By: #### L 3300.1500, L500.4050 #### [facility] [address] [place], [address] ALT [Catalytic activity/Vol] 27 U/L Normal 13-56 [facility] Comment on above: Performed By: #### L 3300.1500, L500.4050 #### [facility] [address] [place], [address] AST [Catalytic activity/Vol] 15 U/L Normal 15-37 [facility] Comment on above: Performed By: #### L 3300.1500, L500.4050 #### [facility] [address] [place], [address] Bilirubin [Mass/Vol] 0.50 mg/dL Normal 0.20-1.00 [facility] Comment on above: Result Comment: For patients on eltrombopag therapy, use of Dimension [place] TBIL is not recommended. Performed By: #### L 3300.1500, L500.4050 #### [facility] [address] [place], [address] BUN/CRE 7.8 RATIO Low 10-20 [facility] Comment on above: Performed By: #### L 3300.1500, L500.4050 #### [facility] [address] [place], [address] CA,Total 9.4 mg/dL Normal 8.5-10.1 [facility] Comment on above: Performed By: #### L 3300.1500, L500.4050 #### [facility] [address] [place], [address] Chloride [Moles/Vol] 107 mmol/L Normal 98-107 [facility] Comment on above: Performed By: #### L 3300.1500, L500.4050 #### [facility] [address] [place], [address] CO2 [Moles/Vol] 27.0 mmol/L Normal 21.0-32.0 [facility] Comment on above: Performed By: #### L 3300.1500, L500.4050 #### [facility] [address] [place], [address] Creatinine [Mass/Vol] 0.90 mg/dL Normal 0.55-1.02 [facility] Comment on above: Result Comment: The validity of the calculated GFR GFRAA in patients over 70 years has not been determined. Clinical correlation is essential. Performed By: #### L 3300.1500, L500.4050 #### [facility] [address] [place], [address] EST GFR - AA 91 mL/min Normal >60 [facility] Comment on above: Result Comment: Afri can Danish GFR Calc Performed By: #### L 3300.1500, L500.4050 #### [facility] [address] [place], [address] GAP 2 Low 5-15 [facility] Comment on above: Performed By: #### L 3300.1500, L500.4050 #### [facility] [address] [place], [address] GFR/1.73 sq M.predicted among non-blacks MDRD (S/P/Bld) [Vol rate/Area] 75 mL/min/{1.73_m2} Normal >60 [facility] Comment on above: Result Comment: Non- GFR Calc Performed By: #### L 3300.1500, L500.4050 #### [facility] [address] [place], [address] Globulin (S) [Mass/Vol] 3.6 g/dL Normal 2.2-4.2 [facility] Comment on above: Performed By: #### L 3300.1500, L500.4050 #### [facility] [address] [place], [address] Glucose [Mass/Vol] 101 mg/dL Normal 74-106 [facility] Comment on above: Result Comment: Fast ing Glucose result from 100 to 125 mg/dL suggests IMPAIRED HOMEOSTASIS per A.D.A. criteria. Performed By: #### L 3300.1500, L500.4050 #### [facility] [address] [place], [address] Potassium [Moles/Vol] 3.8 mmol/L Normal 3.5-5.1 [facility] Comment on above: Performed By: #### L 3300.1500, L500.4050 #### [facility] [address] [place], [address] Sodium [Moles/Vol] 137 mmol/L Normal 136-145 [facility] Comment on above: Performed By: #### L 3300.1500, L500.4050 #### [facility] [address] [place], [address] T PROT 7.4 g/dL Normal 6.4-8.2 [facility] Comment on above: Performed By: #### L 3300.1500, L500.4050 #### [facility] [address] [place], [address] Urea nitrogen [Mass/Vol] 7 mg/dL Normal 7-18 [facility] Comment on above: Performed By: #### L 3300.1500, L500.4050 #### [facility] [address] [place], [address] Office Visit Reporton 2023 Office Visit Report [facility] [address] [place] [address] OFFICE VISIT Date of Service: 03/18/24 MR#: [id number] Acct: [id number] Patient: TATIANA PATTON Rep #: [id number] : 1985 Provider: SHADY Navarro Age/Sex: 39/F [place] [facility] [place] Status: Signed Employer Purchased Covid Test Note: Patient here today for Covid Testing, requested by their Employer. 03/18/24 1521 Date Cuong CARUSO Cosigner Signature: Date (if applicable) CC: Normal [facility] Cortisol, 24 HR UR Freeon CORTISOL,F/24hr 17 ug/24 hr Normal 6-42 [facility] Comment on above: Order Comment: Test( s) [id number]-Wdxslodzdpkntmj, Ur; [id number]-Pajvpznlnchg, Urwas developed and its performance characteristicsdetermined by [employer]. It has not been cleared or approvedby the Food and Drug Administration.UNKN Performed By: #### L 3300.1500, L3600.5400, L506.1000, L500.4050, L502.000, L3600.1100 ####[facility] [address] [place], [address] CORTISOL,U FREE 6 ug/L Normal Undefined [facility] Comment on above: Order Comment: Test( s) [id number]-Xyhmzuusslzisdh, Ur; [id number]-Ktoxqmxeabud, Urwas developed and its performance characteristicsdetermined by Vaughn Burtonrp. It has not been cleared or approvedby the Food and Drug Administration.UNKN Performed By: #### L 3300.1500, L3600.5400, L506.1000, L500.4050, L502.000, L3600.1100 ####[facility] [address] [place], [address] DHEA Sulfateon 02-09-2024 DHEA SULFATE 47.9 ug/dL Low 57.3-279.2 [facility] Comment on above: Order Comment: Test( s) [id number]-Aobbojqtcqxrjtt, Ur; [id number]-Lvlhbmemmwpc, Urwas developed and its performance characteristicsdetermined by [facility]. It has not been cleared or approvedby the Food and Drug Administration.UNKN Result Comment: Perf ormed at: - [address] [id number] Senior Policy Advisor: Cristobal Solorio MD, Phone: [phone] Performed at: [address] [id number] Senior Policy Advisor: Alvin Delong PhD, Phone: [phone] Performed By: #### L 3300.1500, L3600.5400, L506.1000, L500.4050, L502.000, L3600.1100 ####[facility] [address] [place], [place], [id number]) Metanephrine Frac 24 HR URon 02-09-2024 Metaneph,UR 24H 54 ug/24 hr Normal 36-209 [facility] Comment on above: Order Comment: Test( s) [id number]-Xaccfsbzjicismz, Ur; [id number]-Enaybaytdnbc, Urwas developed and its performance characteristicsdetermined by [facility]. It has not been cleared or approvedby the Food and Drug Administration.UNKN Performed By: #### L 3300.1500, L3600.5400, L506.1000, L500.4050, L502.000, L3600.1100 ####[facility] [address] [place], [place], [phone]) Metanephrines,U 19 ug/L Normal Undefined [facility] Comment on above: Order Comment: Test( s) [id number]-Xqlwrirlgstjlns, Ur; 564007-Hngmvzmxxzfc, Urwas developed and its performance characteristicsdetermined by [facility]. It has not been cleared or approvedby the Food and Drug Administration.UNKN Performed By: #### L 3300.1500, L3600.5400, L506.1000, L500.4050, L502.000, L3600.1100 ####[facility] [address] [place], [place], [phone](626) Normetan,UR 24h 214 ug/24 hr Normal 131-612 [facility] Comment on above: Order Comment: Test( s) [id number]-Giuaqzwlbklocqa, Ur; 463803-Kabhigqmcpnj, Urwas developed and its performance characteristicsdetermined by Vaughn Burtonrp. It has not been cleared or approvedby the Food and Drug Administration.UNKN Performed By: #### L 3300.1500, L3600.5400, L506.1000, L500.4050, L502.000, L3600.1100 ####[facility] [address] [place], [address] Normetanephrine 75 ug/L Normal Undefined [facility] Comment on above: Order Comment: Test( s) 411512-Uacetrpnszjuocn, Ur; 135370-Ligvlgwaeavy, Urwas developed and its performance characteristicsdetermined by Vaughn Burtonrp. It has not been cleared or approvedby the Food and Drug Administration.UNKN Performed By: #### L 3300.1500, L3600.5400, L506.1000, L500.4050, L502.000, L3600.1100 ####[facility] [address] [place], [address] Vitamin D,25 Hydroxyon 02-03 Vitamin D 25-OH 74.1 ng/mL Normal [facility] Comment on above: Result Comment: Lolly min D 25(OH) Status Range Deficiency <20 ng/mL (50nmol/L) Insufficiency 20 - 30 ng/mL (50 - 75 nmol/L) Sufficiency 30 - 100 ng/mL (75 - 250 nmol/L) Toxicity >100 ng/mL (>250 nmol/L) Performed By: #### L 3300.1500, L3600.5400, L506.1000, L500.4050, L502.000, L3600.1100 ####[facility] [address] [place], [address] 24 HR Urine Creatinineon UR COLLECT TIME 24.0 HOURS Normal 24.0 [facility] Comment on above: Performed By: #### L 3300.1500, L3600.5400, L506.1000, L500.4050, L502.000, L3600.1100 ####[facility] [address] [place], [address] UR TOTAL VOLUME 2.80 Normal [facility] Comment on above: Performed By: #### L 3300.1500, L3600.5400, L506.1000, L500.4050, L502.000, L3600.1100 ####[facility] [address] [place], [address] UR.CREAT/24hr 1.39 g/24 HR Normal 0.70-1.90 [facility] Comment on above: Performed By: #### L 3300.1500, L3600.5400, L506.1000, L500.4050, L502.000, L3600.1100 ####[facility] [address] [place], [address] URINE CREAT 48.80 mg/dL Normal NO RANGE EST. [facility] Comment on above: Performed By: #### L 3300.1500, L3600.5400, L506.1000, L500.4050, L502.000, L3600.1100 ####[facility] [address] [place], [address] CBC, Employeeon 02-02-2024 Absolute Lymph 2.03 X10 3/uL Normal 0.83-4.51 [facility] Comment on above: Performed By: #### L 500.2900, L100.0200, L400.0100 #### [facility] [address] [place], [address] Absolute Neut 3.8 X10 3/uL Normal 2.0-7.7 [facility] Comment on above: Performed By: #### L 500.2900, L100.0200, L400.0100 #### [facility] [address] [place], [address] Basophils/100 WBC (Bld) 0.3 % Normal 0-1 [facility] Comment on above: Performed By: #### L 500.2900, L100.0200, L400.0100 #### [facility] [address] [place], [address] Eosinophils/100 WBC (Bld) 2.5 % Normal 0-5 [facility] Comment on above: Performed By: #### L 500.2900, L100.0200, L400.0100 #### [facility] [address] [place], [address] Erythrocyte distribution width (RBC) [Ratio] 12.0 % Normal 11.6-14.6 [facility] Comment on above: Performed By: #### L 500.2900, L100.0200, L400.0100 #### [facility] [address] [place], [address] Hematocrit (Bld) [Volume fraction] 42.2 % Normal 37-47 [facility] Comment on above: Performed By: #### L 500.2900, L100.0200, L400.0100 #### [facility] [address] [place], [address] Hemoglobin (Bld) [Mass/Vol] 13.8 g/dL Normal 12.0-15.0 [facility] Comment on above: Performed By: #### L 500.2900, L100.0200, L400.0100 #### [facility] [address] [place], [address] Lymphocytes/100 WBC (Bld) 31.2 % Normal 19-41 [facility] Comment on above: Performed By: #### L 500.2900, L100.0200, L400.0100 #### [facility] [address] [place], [address] MCH (RBC) [Entitic mass] 31.5 pg Normal 27.0-32.0 [facility] Comment on above: Performed By: #### L 500.2900, L100.0200, L400.0100 #### [facility] [address] [place], [address] MCHC (RBC) [Mass/Vol] 32.7 g/dL Normal 32-36 [facility] Comment on above: Performed By: #### L 500.2900, L100.0200, L400.0100 #### [facility] [address] [place], [address] MCV (RBC) [Entitic vol] 96.3 fL Normal 81-99 [facility] Comment on above: Performed By: #### L 500.2900, L100.0200, L400.0100 #### [facility] [address] [place], [address] Monocytes/100 WBC (Bld) 6.5 % Normal 0-10 [facility] Comment on above: Performed By: #### L 500.2900, L100.0200, L400.0100 #### [facility] [address] [place], [address] Neutrophils/100 WBC (Bld) 58.9 % Normal 47-70 [facility] Comment on above: Performed By: #### L 500.2900, L100.0200, L400.0100 #### [facility] [address] [place], [address] NRBC # 0.00 10 3/uL Normal 0-5 [facility] Comment on above: Performed By: #### L 500.2900, L100.0200, L400.0100 #### [facility] [address] [place], [address] Nucleated RBC (Bld) [#/Vol] 0 10*3/uL Normal 0-5 [facility] Comment on above: Performed By: #### L 500.2900, L100.0200, L400.0100 #### [facility] [address] [place], [address] Platelet mean volume (Bld) [Entitic vol] 10.4 fL Normal 6.2-12.0 [facility] Comment on above: Performed By: #### L 500.2900, L100.0200, L400.0100 #### [facility] [address] [place], [address] Platelets (Bld) [#/Vol] 202 10*3/uL Normal 150-450 [facility] Comment on above: Performed By: #### L 500.2900, L100.0200, L400.0100 #### [facility] [address] [place], [address] RBC (Bld) [#/Vol] 4.38 10*6/uL Normal 4.2-5.4 [facility] Comment on above: Performed By: #### L 500.2900, L100.0200, L400.0100 #### [facility] [address] [place], [address] RDW SD 42.8 fl Normal 35.1-43.9 [facility] Comment on above: Performed By: #### L 500.2900, L100.0200, L400.0100 #### [facility] [address] [place], [address] WBC (Bld) [#/Vol] 6.5 10*3/uL Normal 4.4-11.0 [facility] Comment on above: Performed By: #### L 500.2900, L100.0200, L400.0100 #### [facility] [address] [place], [address] Comprehensive Metabolic Prof caon 02-02-2024 Albumin [Mass/Vol] 3.8 g/dL Normal 3.2-5.0 [facility] Comment on above: Order Comment: UNK Performed By: #### L 3300.1500, L3600.5400, L506.1000, L500.4050, L502.000, L3600.1100 #### [facility] [address] [place], [address] Albumin/Globulin [Mass ratio] 1.0 {ratio} Normal 0.9-2.4 [facility] Comment on above: Order Comment: UNK Performed By: #### L 3300.1500, L3600.5400, L506.1000, L500.4050, L502.000, L3600.1100 #### [facility] [address] [place], [address] ALK P 81 U/L Normal 45-117 [facility] Comment on above: Order Comment: UNK Performed By: #### L 3300.1500, L3600.5400, L506.1000, L500.4050, L502.000, L3600.1100 #### [facility] [address] [place], [address] ALT [Catalytic activity/Vol] 22 U/L Normal 13-56 [facility] Comment on above: Order Comment: UNK Performed By: #### L 3300.1500, L3600.5400, L506.1000, L500.4050, L502.000, L3600.1100 #### [facility] [address] [place], [address] AST [Catalytic activity/Vol] 18 U/L Normal 15-37 [facility] Comment on above: Order Comment: UNK Performed By: #### L 3300.1500, L3600.5400, L506.1000, L500.4050, L502.000, L3600.1100 #### [facility] [address] [place], [address] Bilirubin [Mass/Vol] 0.30 mg/dL Normal 0.20-1.00 [facility] Comment on above: Order Comment: UNK Result Comment: For patients on eltrombopag therapy, use of Dimension [place] TBIL is not recommended. Performed By: #### L 3300.1500, L3600.5400, L506.1000, L500.4050, L502.000, L3600.1100 #### [facility] [address] [place], [address] BUN/CRE 10.7 RATIO Normal 10-20 [facility] Comment on above: Order Comment: UNK Performed By: #### L 3300.1500, L3600.5400, L506.1000, L500.4050, L502.000, L3600.1100 #### [facility] [address] [place], [address] CA,Total 9.1 mg/dL Normal 8.5-10.1 [facility] Comment on above: Order Comment: UNK Performed By: #### L 3300.1500, L3600.5400, L506.1000, L500.4050, L502.000, L3600.1100 #### [facility] [address] [place], [address] Chloride [Moles/Vol] 107 mmol/L Normal 98-107 [facility] Comment on above: Order Comment: UNK Performed By: #### L 3300.1500, L3600.5400, L506.1000, L500.4050, L502.000, L3600.1100 #### [facility] [address] [place], [address] CO2 [Moles/Vol] 27.0 mmol/L Normal 21.0-32.0 [facility] Comment on above: Order Comment: UNK Performed By: #### L 3300.1500, L3600.5400, L506.1000, L500.4050, L502.000, L3600.1100 #### [facility] [address] [place], [address] Creatinine [Mass/Vol] 0.84 mg/dL Normal 0.55-1.02 [facility] Comment on above: Order Comment: UNK Result Comment: The validity of the calculated GFR GFRAA in patients over 70 years has not been determined. Clinical correlation is essential. Performed By: #### L 3300.1500, L3600.5400, L506.1000, L500.4050, L502.000, L3600.1100 #### [facility] [address] [place], [address] EST GFR - AA 98 mL/min Normal >60 [facility] Comment on above: Order Comment: UNK Result Comment: Afri can Danish GFR Calc Performed By: #### L 3300.1500, L3600.5400, L506.1000, L500.4050, L502.000, L3600.1100 #### [facility] [address] [place], [address] GAP 5 Normal 5-15 [facility] Comment on above: Order Comment: UNK Performed By: #### L 3300.1500, L3600.5400, L506.1000, L500.4050, L502.000, L3600.1100 #### [facility] [address] [place], [address] GFR/1.73 sq M.predicted among non-blacks MDRD (S/P/Bld) [Vol rate/Area] 81 mL/min/{1.73_m2} Normal >60 [facility] Comment on above: Order Comment: UNK Result Comment: Non- GFR Calc Performed By: #### L 3300.1500, L3600.5400, L506.1000, L500.4050, L502.000, L3600.1100 #### [facility] [address] [place], [address] Globulin (S) [Mass/Vol] 3.7 g/dL Normal 2.2-4.2 [facility] Comment on above: Order Comment: UNK Performed By: #### L 3300.1500, L3600.5400, L506.1000, L500.4050, L502.000, L3600.1100 #### [facility] [address] [place], [address] Glucose [Mass/Vol] 86 mg/dL Normal 74-106 [facility] Comment on above: Order Comment: UNK Performed By: #### L 3300.1500, L3600.5400, L506.1000, L500.4050, L502.000, L3600.1100 #### [facility] [address] [place], [address] Potassium [Moles/Vol] 4.0 mmol/L Normal 3.5-5.1 [facility] Comment on above: Order Comment: UNK Performed By: #### L 3300.1500, L3600.5400, L506.1000, L500.4050, L502.000, L3600.1100 #### [facility] [address] [place], [address] Sodium [Moles/Vol] 139 mmol/L Normal 136-145 [facility] Comment on above: Order Comment: UNK Performed By: #### L 3300.1500, L3600.5400, L506.1000, L500.4050, L502.000, L3600.1100 #### [facility] [address] [place], [address] T PROT 7.5 g/dL Normal 6.4-8.2 [facility] Comment on above: Order Comment: UNK Performed By: #### L 3300.1500, L3600.5400, L506.1000, L500.4050, L502.000, L3600.1100 #### [facility] [address] [place], [address] Urea nitrogen [Mass/Vol] 9 mg/dL Normal 7-18 [facility] Comment on above: Order Comment: UNK Performed By: #### L 3300.1500, L3600.5400, L506.1000, L500.4050, L502.000, L3600.1100 #### [facility] [address] [place], [address] Employee Profileon 4 Albumin [Mass/Vol] 3.7 g/dL Normal 3.2-5.0 [facility] Comment on above: Performed By: #### L 500.2900, L100.0200, L400.0100 #### [facility] [address] [place], [address] Albumin/Globulin [Mass ratio] 1.0 {ratio} Normal 0.9-2.4 [facility] Comment on above: Performed By: #### L 500.2900, L100.0200, L400.0100 #### [facility] [address] [place], [address] ALK P 80 U/L Normal 45-117 [facility] Comment on above: Performed By: #### L 500.2900, L100.0200, L400.0100 #### [facility] [address] [place], [address] ALT [Catalytic activity/Vol] 28 U/L Normal 13-56 [facility] Comment on above: Performed By: #### L 500.2900, L100.0200, L400.0100 #### [facility] [address] [place], [address] AST [Catalytic activity/Vol] 18 U/L Normal 15-37 [facility] Comment on above: Performed By: #### L 500.2900, L100.0200, L400.0100 #### [facility] [address] [place], [address] Bilirubin [Mass/Vol] 0.30 mg/dL Normal 0.20-1.00 [facility] Comment on above: Result Comment: For patients on eltrombopag therapy, use of Dimension [place] TBIL is not recommended. Performed By: #### L 500.2900, L100.0200, L400.0100 #### [facility] [address] [place], [address] Bilirubin.direct [Mass/Vol] 0.11 mg/dL Normal 0.00-0.30 [facility] Comment on above: Performed By: #### L 500.2900, L100.0200, L400.0100 #### [facility] [address] [place], [address] BUN/CRE 10.7 RATIO Normal 10-20 [facility] Comment on above: Performed By: #### L 500.2900, L100.0200, L400.0100 #### [facility] [address] [place], [address] CA,Total 9.1 mg/dL Normal 8.5-10.1 [facility] Comment on above: Performed By: #### L 500.2900, L100.0200, L400.0100 #### [facility] [address] [place], [address] Chloride [Moles/Vol] 106 mmol/L Normal 98-107 [facility] Comment on above: Performed By: #### L 500.2900, L100.0200, L400.0100 #### [facility] [address] [place], [address] CHOL:HDL 2.00 Normal [facility] Comment on above: Performed By: #### L 500.2900, L100.0200, L400.0100 #### [facility] [address] [place], [address] Cholesterol [Mass/Vol] 146 mg/dL Normal 200 [facility] Comment on above: Result Comment: <200 mg/dL Desirable 200-240 mg/dL Borderline >240 mg/dL High Risk Performed By: #### L 500.2900, L100.0200, L400.0100 #### [facility] [address] [place], [address] Cholesterol in HDL [Mass/Vol] 72 mg/dL Normal [facility] Comment on above: Result Comment: The drugs N-Acetylcysteine and Metamizole may falsely depress this assay. Reference Range HDL <40 mg/dL Low HDL Cholesterol HDL >or= 60 mg/dL High HDL Cholesterol Performed By: #### L 500.2900, L100.0200, L400.0100 #### [facility] [address] [place], [address] Cholesterol in LDL [Mass/Vol] 58 mg/dL Normal 0-130 [facility] Comment on above: Performed By: #### L 500.2900, L100.0200, L400.0100 #### [facility] [address] [place], [address] Cholesterol in VLDL [Mass/Vol] 16 mg/dL Normal 5-40 [facility] Comment on above: Performed By: #### L 500.2900, L100.0200, L400.0100 #### [facility] [address] [place], [address] CO2 [Moles/Vol] 26.0 mmol/L Normal 21.0-32.0 [facility] Comment on above: Performed By: #### L 500.2900, L100.0200, L400.0100 #### [facility] [address] [place], [address] Creatinine [Mass/Vol] 0.84 mg/dL Normal 0.55-1.02 [facility] Comment on above: Result Comment: The validity of the calculated GFR GFRAA in patients over 70 years has not been determined. Clinical correlation is essential. Performed By: #### L 500.2900, L100.0200, L400.0100 #### [facility] [address] [place], [address] EST GFR - AA 98 mL/min Normal >60 [facility] Comment on above: Result Comment: Afri can Danish GFR Calc Performed By: #### L 500.2900, L100.0200, L400.0100 #### [facility] [address] [place], [address] GAP 6 Normal 5-15 [facility] Comment on above: Performed By: #### L 500.2900, L100.0200, L400.0100 #### [facility] [address] [place], [address] GFR/1.73 sq M.predicted among non-blacks MDRD (S/P/Bld) [Vol rate/Area] 81 mL/min/{1.73_m2} Normal >60 [facility] Comment on above: Result Comment: Non- GFR Calc Performed By: #### L 500.2900, L100.0200, L400.0100 #### [facility] [address] [place], [address] Globulin (S) [Mass/Vol] 3.8 g/dL Normal 2.2-4.2 [facility] Comment on above: Performed By: #### L 500.2900, L100.0200, L400.0100 #### [facility] [address] [place], [address] Glucose [Mass/Vol] 88 mg/dL Normal 74-106 [facility] Comment on above: Performed By: #### L 500.2900, L100.0200, L400.0100 #### [facility] [address] [place], [address] LDH 181 U/L Normal 84-246 [facility] Comment on above: Performed By: #### L 500.2900, L100.0200, L400.0100 #### [facility] [address] [place], [address] Phosphate [Mass/Vol] 3.6 mg/dL Normal 2.5-4.9 [facility] Comment on above: Performed By: #### L 500.2900, L100.0200, L400.0100 #### [facility] [address] [place], [address] Potassium [Moles/Vol] 4.0 mmol/L Normal 3.5-5.1 [facility] Comment on above: Performed By: #### L 500.2900, L100.0200, L400.0100 #### [facility] [address] [place], [address] Sodium [Moles/Vol] 138 mmol/L Normal 136-145 [facility] Comment on above: Performed By: #### L 500.2900, L100.0200, L400.0100 #### [facility] [address] [place], [address] T PROT 7.5 g/dL Normal 6.4-8.2 [facility] Comment on above: Performed By: #### L 500.2900, L100.0200, L400.0100 #### [facility] [address] [place], [address] Triglyceride [Mass/Vol] 80 mg/dL Normal [facility] Comment on above: Result Comment: The drugs N-Acetylcysteine and Metamizole may falsely depress this assay. Serum Triglycerides Reference Interval Normal <150 mg/dL Borderline high 150 - 199 mg/dL High 200 - 499 mg/dL Very High > or = 500 mg/dL Performed By: #### L 500.2900, L100.0200, L400.0100 #### [facility] [address] [place], [address] Urea nitrogen [Mass/Vol] 9 mg/dL Normal 7-18 [facility] Comment on above: Performed By: #### L 500.2900, L100.0200, L400.0100 #### [facility] [address] [place], [address] URIC 4.7 mg/dL Normal 2.6-6.0 [facility] Comment on above: Result Comment: The drugs N-Acetylcysteine and Metamizole may falsely depress this assay. Performed By: #### L 500.2900, L100.0200, L400.0100 #### [facility] [address] [place], [address] Urinalysis, Employeeon 02-01 BILIRUBIN URINE Negative Normal Negative [facility] Comment on above: Performed By: #### L 500.2900, L100.0200, L400.0100 #### [facility] [address] [place], [address] Clarity (U) Clear Normal Clear [facility] Comment on above: Performed By: #### L 500.2900, L100.0200, L400.0100 #### [facility] [address] [place], [address] Color (U) Yellow Normal Yellow [facility] Comment on above: Performed By: #### L 500.2900, L100.0200, L400.0100 #### [facility] [address] [place], [address] GLUCOSE, UR Normal Normal Normal [facility] Comment on above: Performed By: #### L 500.2900, L100.0200, L400.0100 #### [facility] [address] [place], [address] KETONE UR Negative Normal Negative [facility] Comment on above: Performed By: #### L 500.2900, L100.0200, L400.0100 #### [facility] [address] [place], [address] LEUK ESTERASE Negative Normal Negative [facility] Comment on above: Performed By: #### L 500.2900, L100.0200, L400.0100 #### [facility] [address] [place], [address] Nitrite Ql (U) Negative Normal Negative [facility] Comment on above: Performed By: #### L 500.2900, L100.0200, L400.0100 #### [facility] [address] [place], [address] OCCULT BLOOD-UR Negative Normal Negative [facility] Comment on above: Performed By: #### L 500.2900, L100.0200, L400.0100 #### [facility] [address] [place], [address] pH UR 7.0 Normal 5.0 - 8.0 [facility] Comment on above: Performed By: #### L 500.2900, L100.0200, L400.0100 #### [facility] [address] [place], [address] PROT DIPSTX Negative Normal Negative [facility] Comment on above: Performed By: #### L 500.2900, L100.0200, L400.0100 #### [facility] [address] [place], [address] SP.GR. DIPSTX 1.005 Normal 1.002-1.03 0 [facility] Comment on above: Performed By: #### L 500.2900, L100.0200, L400.0100 #### [facility] [address] [place], [address] UROBILI Normal Normal Normal [facility] Comment on above: Performed By: #### L 500.2900, L100.0200, L400.0100 #### [facility] [address] [place], [address] Surgery Visit Reporton 10-21 Surgery Visit Report [facility] [address] [place] [address] OFFICE VISIT Date of Service: 10/22/23 MR#: [id number] Acct: [id number] Name: TATIANA PATTON Rep #: [id number] : 1985 Provider: Dr. Echo josé MD Age/Sex: 38/F Location: [facility] Status: Signed Intake Vital Signs 10/12/23 10:29 Height 5 ft 5 in Intake Visit Reasons: 10-11 EXCISIONAL BREAST BIOPSY Chief Complaint: 10/11 Excisional right breast biopsy Decay Control Operator Required: No Is patient in pain?: No Allergies gluten Allergy (Severe, Verified 10/22/23 10:14) Abd cramps/diarrhea Environmental Allergies: Uncoded Allergy (Mild, Verified 10/22/23 10:14) Rash Seasonal Allergies: Uncoded Allergy (Mild, Verified 10/22/23 10:14) Itching codeine Allergy (Verified 10/22/23 10:14) Unknown Medications famotidine 40 mg tablet (Pepcid) 20 mg PO BID 08/11/19 [History Confirmed 10/22/23] calcium acetate-magnesium carb 300 mg-300 mg tablet 1 tab PO DAILY 11/09/21 [History Confirmed 10/22/23] melatonin 5 mg tablet 5 mg PO QHS SLEEP 11/09/21 [History Confirmed 10/22/23] cyanocobalamin (vitamin B-12) 1,000 mcg tablet (Vitamin B-12) 1,000 mcg PO QODAY 02/26/22 [History Confirmed 10/22/23] ferrous sulfate 142 mg (45 mg iron) tablet,extended release (Slow Fe) 142 mg PO DAILY 02/26/22 [History Confirmed 10/22/23] lactobacillus combination no.4 3 billion cell capsule (Probiotic) 3,000 mmu cells PO DAILY 02/26/22 [History Confirmed 10/22/23] vitamin D3 25 mcg (1,000 unit)-vit K2 90 mcg disintegrating tablet 1 tab PO DAILY 02/26/22 [History Confirmed 10/22/23] krill oil 500 mg capsule 1,000 mg PO DAILY SUPPLEMENT 08/24/23 [History Confirmed 10/22/23] loratadine 10 mg tablet (Claritin) 10 mg PO DAILY 10/05/23 [History Confirmed 10/22/23] multivitamin 1 tab PO DAILY 10/05/23 [History Confirmed 10/22/23] slippery elm bark 400 mg capsule 400 mg PO DAILY SUPPLEMENT 10/05/23 [History Confirmed 10/22/23] Subjective Details: 38-year-old female presents status post excisional biopsy of intraductal papilloma right breast. Pathology did show the biopsy cavity and the clip but there is no residual intraductal papilloma. Initial biopsy was done mammotome. Patient did have 1 sample that showed focal ductal hyperplasia with atypia. Plan to get a second opinion as this require high risk screening and the other 2 samples did not show this. Patient denies any issues with the incision. Objective Details: Right breast incision healing well no signs of infection, ecchymosis resolving Coding Level of Care Code Global Post Op Diagnoses Intraductal papilloma of right breast D24.1 [facility] Medical History (Updated 10/22/23 @ 10:14 by Edna Magallanes) Abdominal pain Alcohol use Breast mass, right Celiac disease Celiac disease Chronic diarrhea Dietary restriction Environmental allergies Gastric reflux Gastroesophageal reflux disease Hoarseness Intraductal papilloma Intraductal papilloma of right breast Low iron Non-smoker breast pain Wears contact lenses Wears glasses Surgical History (Updated 10/22/23 @ 10:15 by Edna Magallanes) History of breast biopsy History of colonoscopy History of cosmetic surgery Hx of esophagogastroduodenoscopy Hx of tonsillectomy Social History Smoking Status: Never smoker alcohol intake: current alcohol intake frequency: holidays/special occasions only substance use type: does not use Assessment and Plan (No Qualifiers) Assessment and Plan (1) Intraductal papilloma of right breast: Status: Acute Plan Incision healing well. Patient's pathology sent for second opinion due to the 1 area of called focal atypical ductal hyperplasia??? Which is only called in 1 area of the 3 specimens taken. If this is called again patient would qualify for high risk breast screening.Discussed with patient she was agreeable with plan. Echo Niño M.D. Pager: [phone] [facility] [address] [place] [address], [facility], [address] [place] [address] Office: [phone] 10/23/23 1212 Date Echo Niño MD Cosign Signature: Date (if applicable) CC: MICHELE MADDEN [facility] Breast Biopsy Specimenon Breast Biopsy Specimen [facility] Imaging Services [address] [place] [id number] Breast Biopsy Specimen MR#: [id number] Acct: [id number] Name: TATIANA PATTON Rep #: [id number] : 1985 F 38 From: Kyler lara MD PCP: MICHELE MADDEN Status: [facility] Study: Breast Biopsy Specimen Date of Exam: 10/12/23 Exam# [id number] Ordering Dr: Echo Niño MD [id number] SURGICAL BREAST SPECIMEN RADIOGRAPH CLINICAL: Document presence of mass in biopsy specimen. FINDINGS: Specimen shows presence of mass. Electronically Signed: Kyler Hess MD at 13:40 EDT , BI/Breast Biopsy Specimen IMPRESSION: undefined CC: MICHELE MADDEN; Dr. Echo Niño MD City Editor: Signed [facility] Discharge Instructionon 10-01 Discharge Instruction [facility] Medical Records Department [address] [place] [address] Instructions for Home/Discharge Instructions 10/12/23 1314 MR#: [id number] Acct: [id number] Name: TATIANA PATTON Rep #: [id number] : 1985 38 From: Echo Niño MD PCP: MICHELE MADDEN Status:REG [facility] Discharge Instructions Diet Discharge Diet: No restrictions Activity Discharge Activity: May Not Drive (for 2-3 days or while taking narcotic pain meds.) May shower in (days): 1 Lifting Restrictions: 10 pounds for 1 week. Dressing / Incision Call your doctor if your incision/area has: Continuous Slow Oozing, Sudden Increased Bleeding, Increased Pain/ Swelling and Increased Redness Call your doctor if you observe: Fever of 101 or Higher Suture Line Care: Avoid Pulling/Pushing and Avoid Pinching/Bending Remove Dressing in: 1 day Additional Dressing/Incision Instructions:: Remove bulky dressing tomorrow. May leave op-site dressing for 3-4 days. Okay to remove Steri-Strips from the breast incision in 7 to 10 days. Follow Up Care Please Follow Up With: Echo Niño MD When: Please call [phone] for an appointment to be seen in 2 week. Test Results: Test results from this visit will be discussed in further detail at your follow-up appointment, if applicable. Discharge Plan Admission Attending Provider: Echo Niño Primary Care Provider: Michele Madden Discharge Orders/Prescriptions Prescriptions: Continued famotidine [Pepcid] 40 mg tablet 20 mg PO BID krill oil 500 mg capsule 1,000 mg PO DAILY calcium acetate-magnesium carb 300-300 mg Tablet 1 tab PO DAILY Rx Instructions: 500mg-250 melatonin 5 mg Tablet 5 mg PO QHS cyanocobalamin (vitamin B-12) [Vitamin B-12] 1,000 mcg Tablet 1,000 mcg PO QODAY vitamin D3-vitamin K2 1000-90 unit-mcg Tablet,Disintegrating 1 tab PO DAILY Slow Fe 142 mg (45 mg iron) Tablet Extended Release 142 mg PO DAILY Probiotic 3 billion cell Capsule 3,000 mmu cells PO DAILY Rx Instructions: administer with a meal loratadine [Claritin] 10 mg tablet 10 mg PO DAILY multivitamin Tablet 1 tab PO DAILY slippery elm bark 400 mg capsule 400 mg PO DAILY Referrals / Follow Up: Michele Madden MD [Primary Care Provider] - Disposition Disposition (needs filled in before D/C Order can be placed): Home, Self Care 10/12/23 1315 Echo Niño MD CC: MICHELE MADDEN Signed [facility] Frozen Section (charge)on Frozen Section (charge) Patient Age/Sex Location Account Attending Physician ABDITATIANA ENCARNACION 38/F [facility] [id number] Dr. Echo Niño MD Specimen: [id number] Received: 10/12/23-1213 [facility] Num: [id number] Spec Type: BREAST BX Subm Dr: Dr. Echo Niño MD HEADER OPERATION: Wire localization right excisional breast, lumpectomy PRE-OP DIAGNOSIS: Intraductal papilloma of right breast TISSUE SUBMITTED: A - Right breast tissue, long stitch - lateral, short tag - superior, B - Additional right breast tissue, long tag - lateral, short tag - superior, C - Additional right breast tissue, long tag - lateral, short tag - superior for frozen section FROZEN SECTION DIAGNOSIS C. Additional right breast tissue, excisional biopsy: Biopsy site and clip are noted. SJ:sarina 10/12/2023 Case has been reviewed in consultation with Dr. Wells who concurs with the above diagnosis. IDC:AM MICROSCOPIC DIAGNOSIS A. Right breast tissue, lumpectomy, excision with needle localization: Fibrocystic changes, focal adenosis and intraductal hyperplasia without atypia. Focal ductal dilatation. Focal fat necrosis and inflammation consistent with previous biopsy related changes. Negative for malignancy. B. Additional right breast tissue excisional biopsy: Focal intraductal hyperplasia with atypia. Negative for malignancy. C. Additional right breast tissue excisional biopsy: Negative for residual intraductal papilloma. Focal changes consistent with previous biopsy site. Negative for atypia or malignancy. SJ/mr 10/15/2023 COMMENT Please make reference to previous specimen. ([id number]) Right breast 8 o'clock, ultrasound-guided biopsy with diagnosis of intraductal papilloma, focal intraductal hyperplasia without atypia, mild duct ectasia and apocrine metaplasia. Case has been reviewed in consultation with Dr. Wells who concurs with the above diagnosis. IDC:AM Patient Age/Sex Location Account Attending Physician TATIANA PATTON 38/F [facility] [id number] Dr. Echo Niño MD MICROSCOPIC DESCRIPTION Slides are reviewed. GROSS DESCRIPTION A - Received fresh and post-fixed in formalin is one container labeled with the patient's name and designated right breast tissue. The specimen consists of a piece of fibroadipose tissue with needle localization measuring 4.0 x 3.0 x 1.2 cm. The specimen is inked as follows: anterior - yellow, posterior - black, superior - blue, inferior - green, medial - red and lateral - orange. The specimen is serially sectioned from superior to inferior margin and submitted entirely in seven cassettes. Cassette 1 contains the most superior portion and cassette 7 contains the most inferior portion. Sections will be submitted after additional fixation. / SJ:sraina 10/13/2023 B - Received fresh and post-fixed in formalin is one container labeled with the patient's name and designated additional right breast tissue. The specimen consists of a piece of fibroadipose tissue with needle localization measuring 2.0 x 2.0 x 1.5 cm. The specimen is disrupted in the central portion. The specimen is inked as follows: anterior - green, posterior - black, superior - blue over black, inferior - yellow, medial - red and lateral - orange. The specimen is serially sectioned and reveal colbert-yellow adipose cut surfaces mixed with focal fibrous areas. The entire specimen is submitted in four cassettes as follows: 1 - perpendicular medial and lateral margins, 2-4 - rest of the specimen. / SJ:sarina 10/13/2023 C - Received fresh for frozen section diagnosis labeled with the patient's name is a specimen designated additional right breast tissue. The specimen consists of a piece of colbert-yellow fibroadipose tissue with needle localization measuring 2.0 x 2.0 x 0.6 cm. The specimen is oriented as follows: short suture - superior, long suture - lateral. The specimen is inked as follows: anterior - yellow, posterior - black, superior - blue, inferior - green, medial - red and lateral - orange. The specimen is serially sectioned and shows a metallic clip. The entire specimen is submitted for frozen section diagnosis in three cassettes. / SJ:sarina 10/13/2023 TC: 5 [facility]: [id number], [id number], [id number] ADDENDUM Addendum 1 Entered: 11/04/23-0848 This addendum is added to incorporate an outside pathology consultation report per Dr. Niño's request. [facility] (#[id number][facility] and the following diagnosis was rendered. INTERPRETA (more content not included)... [facility] Comment on above: Performed By: #### P FSC ####[facility] [id number] [facility] [place], [address] Laboratory - Chemistry and C hemistry - challengeOrdered By: Ramos Garcia on 10-12-2023 HCG ( test) Ql (U) Negative [facility] Comment on above: Very dilute urine sp ecimens, as indicated by a low specificgravity, may not contain cordage sales representative levels of hCG. If is still suspected, a first morning urinespecimen should be collected 48 hours later and tested. Operative Reporton 4 Operative Report [facility] Medical Records Department [address] [place] [address] Operative Report 10/12/23 1203 MR#: [id number] Acct: [id number] Name: TATIANA PATTON Rep #: [id number] : 1985 38 From: Echo Niño MD PCP: MICHELE MADDEN Status:[facility] Location: [place] [address] Report of Operation Date of Procedure: 10/12/23 Pre-Operative Diagnosis: Right breast intraductal papilloma???no dysplasia Post-Operative Diagnosis: Same Surgery/Procedure Performed:: Ultrasound needle localization right breast excisional biopsy Surgeon: Ecoh Niño Type of Anesthesia: General/Supplemental Anesthesiologist: Bryson Diehl Special Medications: Ancef 2 g IV x 1 Specimen's removed: 1. Right breast mass???first second specimen only had a wire no clip, third specimen had the clip and likely lesion. Estimated Blood Loss (mL): <10 cc Description of Procedure: the patient was taken to the operating room and general anesthesia was induced. The right breast and axilla were prepped and draped in usual sterile fashion. A timeout was completed verifying correct patient, procedure, site, positioning, special equipment prior to beginning procedure. Ultrasound was use for localization of the breast mass using the BARD's needle. The wire was placed just inferiorly to the clip. A radial incision was planned in such a way as to minimize the amount of dissection to reach the mass. Flaps were raised in the location of the wire confirmed. The wire was delivered into the wound. 2 silk cxxfhj-la-fmtjl stay suture was placed around the wire and used for traction. Dissection was then taken down circumferentially, taking care to include the entire localization needle and wide margin of grossly normal tissue. The specimen and entire localizing wire were removed. The specimen was oriented and sent to radiology with the localization studies. Initially the first 2 specimens did not have the clip. Additional ultrasound wire localization was used to try to identify the clip. The third specimen did have the clip confirmed and pathology did confirm biopsy cavity. Confirmation was received that the entire target lesion had been resected. The cavity was irrigated. Hemostasis was checked. The breast incision was closed with interrupted sutures of 3-0 Vicryl and subcuticular sutures of 4-0 Monocryl. No attempt was made to close the space. Steri-Strips and OpSite, supportive bra placed. The patient tolerated procedure well was taken to the postanesthesia care in stable condition Complications none 10/12/23 6662 Cosigner Signature (if applicable): CC: MICHELE MADDEN; Dr. Echo Niño MD Signed [facility] ,Urineon 10-12-2023 Beta HCG ( test) Ql (U) Negative [facility] Comment on above: Result Comment: Very dilute urine specimens, as indicated by a low specific gravity, may not contain cordage sales representative levels of hCG. If is still suspected, a first morning urine specimen should be collected 48 hours later and tested. Performed By: #### L [phone] #### [facility] [address] [place], [address] Surgery Visit Reporton 09-17 Surgery Visit Report [facility] [address] [place] [address] OFFICE VISIT Date of Service: 09/17/23 MR#: [id number] Acct: [id number] Name: TATIANA PATTON Rep #: [id number] : 1985 Provider: Dr. Echo josé MD Age/Sex: 38/F Location: [facility] Status: Signed Intake Vital Signs 08/24/23 10:00 09/17/23 13:34 Height 5 ft 5 in 5 ft 5 in Weight: 169 lb 2 oz 170 lb BMI 28.1 28.3 BP 111/78 123/80 H Blood Pressure Location Lt brachial Rt brachial Position Sitting Sitting Respiration 17 18 Pulse 75 74 Pulse Source Monitor Monitor Temp 97.8 F 97.3 F L Temp Source Temporal Temporal Pulse Oximetry (%) 100 99 Oxygen Delivery Method room air room air Intake Visit Reasons: DISCUSS BREAST SURGERY Chief Complaint: F/U Breast biopsy 08/27/23 Decay Control Operator Required: No Is patient in pain?: No Allergies gluten Allergy (Severe, Verified 09/17/23 13:35) Abd cramps/diarrhea Environmental Allergies: Uncoded Allergy (Mild, Verified 09/17/23 13:35) Rash Seasonal Allergies: Uncoded Allergy (Mild, Verified 09/17/23 13:35) Itching codeine Allergy (Verified 09/17/23 13:35) Unknown Medications cetirizine 10 mg capsule (Zyrtec) 10 mg PO DAILY 08/11/19 [History Confirmed 09/17/23] famotidine 40 mg tablet (Pepcid) 20 mg PO DAILY 08/11/19 [History Confirmed 09/17/23] calcium acetate-magnesium carb 300 mg-300 mg tablet 1 tab PO DAILY 11/09/21 [History Confirmed 09/17/23] melatonin 5 mg tablet 5 mg PO QHS 11/09/21 [History Confirmed 09/17/23] cyanocobalamin (vitamin B-12) 1,000 mcg tablet (Vitamin B-12) 1,000 mcg PO QODAY 02/26/22 [History Confirmed 09/17/23] ferrous sulfate 142 mg (45 mg iron) tablet,extended release (Slow Fe) 142 mg PO DAILY 02/26/22 [History Confirmed 09/17/23] glucosamine sulf dipot chlr,msm,chond 550 mg-C 30 mg-harjinder 1 mg capsule (Glucosamine Chondroitin) 1 cap PO DAILY 02/26/22 [History Confirmed 09/17/23] lactobacillus combination no.4 3 billion cell capsule (Probiotic) 3,000 mmu cells PO DAILY 02/26/22 [History Confirmed 09/17/23] pantoprazole 40 mg tablet,delayed release (Protonix) 40 mg PO DAILY 02/26/22 [History Confirmed 09/17/23] prenat.vits,cande,min-iron-f olic 1 tab PO DAILY 02/26/22 [History Confirmed 09/17/23] turmeric 100 mg-syd 150 mg-olive 50 mg-oreg 150 mg-capryl capsule cap PO 02/26/22 [History Confirmed 09/17/23] vit C,W-Bs-ztohfm-lutein-zeaxa n 60 mg-13.5 mg-15 mg-2 mg-6 mg capsule (Ocuvite Lutein and Zeaxanthin) 1 cap PO DAILY 02/26/22 [History Confirmed 09/17/23] vitamin D3 25 mcg (1,000 unit)-vit K2 90 mcg disintegrating tablet 1 tab PO DAILY 02/26/22 [History Confirmed 09/17/23] krill oil 500 mg capsule mg PO 08/24/23 [History Confirmed 09/17/23] PFSH Medical History (Updated 09/21/23 @ 13:[address] Echo Niño MD) Abdominal pain Alcohol use Breast mass, right Celiac disease Celiac disease Chronic diarrhea Environmental allergies Gastroesophageal reflux disease Intraductal papilloma Low iron breast pain Runny nose Sinusitis, acute Wears contact lenses Wears glasses Surgical History (Updated 09/17/23 @ 13:34 by Edna Magallanes) History of breast biopsy Hx of esophagogastroduodenoscopy Hx of tonsillectomy Social History Smoking Status: Never smoker alcohol intake: current alcohol intake frequency: holidays/special occasions only substance use type: does not use HPI HPI HPI: 39-year-old female presents status post right breast biopsy. Pathology showed intraductal papilloma with focal intraductal hyperplasia no atypia. Patient denies any further discomfort in her lateral right breast. Office bedside ultrasound able to see the clip in the lesion to allow for ultrasound- guided needle localization in the OR. ROS Breast Breast: Yes breast pain and abnormal US Gastro Gastrointestinal: Yes diarrhea and Yes acid reflux Exam Const General: cooperative, healthy appearing and no acute distress [facility] Head: normal to inspection Chest Other: Right breast: Biopsy site healing well. Bedside ultrasound able to see clip and lesion to allow for ultrasound-guided needle localization. Resp Effort Inspection: normal respiratory effort Cardio Rate: regular rate GI Inspection: non-distended Palpation: soft Skin General: no rashes or lesions noted Neuro General: patient oriented x3 Extrem General: no clubbing, cyanosis or edema Psych Affect: normal affect Assessment and Plan Assessment and Plan (1) Intraductal papilloma of right breast: Status: Acute Plan Plan for an excisional right breast biopsy with ultrasound needle localization. Discussed procedure with patient including risk but not limited to bleeding, infection, need fo (more content not included)... [facility] Abdomen W/WO IV Contraston 0 09-11-2023 Abdomen W/WO IV Contrast [facility] Imaging Services [address] [place] [address] Abdomen W/WO IV Contrast MR#: [id number] Acct: [id number] Name: TATIANA PATTON Rep #: [id number] : 1985 F 38 From: Muriel west MD PCP: MICHELE MADDEN Status: REG CLI Study: Abdomen W/WO IV Contrast Date of Exam: 4 Exam# [id number] Ordering Dr: Xavier Duarte DO [id number] HISTORY: ATTENTION TO ADRENALS W/ HOUNSFIELD UNITS. TECHNIQUE: Helically acquired images were obtained of the abdomen before and after the intravenous administration of 100 mL Isovue 300 with delayed images also obtained. A radiation dose optimization technique was used for this scan. 474 images. COMPARISON: 11/25/2022, 12/13/2021. FINDINGS: LOWER CHEST: Lung bases clear. BOWEL: Bowel nondilated. Moderate stool in the colon. No pericolonic inflammation.. PERITONEUM: No significant free fluid or pathologically enlarged lymph nodes. LIVER: No enhancing mass. GALLBLADDER/BILIARY TREE: Gallbladder present. SPLEEN/PANCREAS: Homogeneous and nonenlarged. KIDNEYS: No nephrolithiasis or hydronephrosis. Normal enhancement. ADRENAL GLANDS: 1.8 cm right and 1.7 cm left low-attenuation nodules with greater than 50% washout on delayed images. VESSELS: No abdominal aortic aneurysm. OSSEOUS STRUCTURES: Intact CT/Abdomen W/WO IV Contrast IMPRESSION: No significant interval change in size of small bilateral adrenal adenomas. Electronically Signed: Muriel Olea MD at 15:42 EST Reading Location ID and State: [facility] / [place] Tel , Service support , CC: MICHELE MADDEN; Dr. Xavier Duarte DO City Editor: Signed [facility] Basophil percentageOrdered B y: Xavier Duarte on 08-07-2023 Bilirubin [Mass/Vol] 0.30 mg/dL 0.20-1.00 [facility] Comment on above: For patients on eltr ombopag therapy, use of Dimension [place] TBIL is not recommended. Chloride [Moles/Vol] 110 mmol/L 98-107 [facility] Glucose [Mass/Vol] 73 mg/dL 74-106 [facility] Potassium [Moles/Vol] 3.7 mmol/L 3.5-5.1 [facility] Protein [Mass/Vol] 7.3 g/dL 6.4-8.2 [facility] Sodium [Moles/Vol] 140 mmol/L 136-145 [facility] Laboratory - Chemistry and C hemistry - challengeOrdered By: Xavier Duarte on 08-07-2023 ALP [Catalytic activity/Vol] 76 U/L 45-117 [facility] ALT [Catalytic activity/Vol] 23 U/L 13-56 [facility] CO2 [Moles/Vol] 25.0 mmol/L 21.0-32.0 [facility] Globulin (S) [Mass/Vol] 3.6 g/dL 2.2-4.2 [facility] Urea nitrogen/Creatinine [Mass ratio] 9.0 mg/mg 10-20 [facility] No Panel InformationOrdered By: Xavier Duarte on 08-07-2023 Dehydroepiandrosterone Sulfate 60.4 ug/dL 57.3-279.2 [facility] Comment on above: Performed at: [facility] [id number] [place], [place] [id number] Director: Alvin Delong PhD, Phone: [phone] Estimated GFR (MDRD) Amer 93 mL/min >60 [facility] Comment on above: GFR Calc Estimated GFR (MDRD) Non-Af Amer 77 mL/min >60 [facility] Comment on above: Non- GFR Calc Thyroid Stimulating Hormone (TSH) 2.04 uIU/mL 0.358-3.74 [facility] Vitamin D 25-Hydroxy 62.5 ng/mL [facility] Comment on above: Vitamin D 25(OH) Sta tus Range Deficiency <20 ng/mL (50nmol/L) Insufficiency 20 - 30 ng/mL (50 - 75 nmol/L) Sufficiency 30 - 100 ng/mL (75 - 250 nmol/L) Toxicity >100 ng/mL (>250 nmol/L) Serum or plasma albumin tram urement (mass/volume)Ordered By: Xavier Duarte on 08-07-2023 Albumin [Mass/Vol] 3.7 g/dL 3.2-5.0 [facility] Serum or plasma albumin/glob ulin mass ratioOrdered By: Xavier Duarte on 08-07-2023 Albumin/Globulin [Mass ratio] 1.0 {ratio} 0.9-2.4 [facility] Serum or plasma calcium tram urement (mass/volume)Ordered By: Xavier Duarte on 08-07-2023 Calcium [Mass/Vol] 9.2 mg/dL 8.5-10.1 [facility] Serum or plasma creatinine m easurement (mass/volume)Ordered By: Xavier Duarte on 08-07-2023 Creatinine [Mass/Vol] 0.88 mg/dL 0.55-1.02 [facility] Comment on above: The validity of the calculated GFR & GFRAA in patients over 70 years has not been determined. Clinical correlation is essential. Serum or plasma urea nitroge n measurement (mass/volume)Ordered By: Xavier Duarte on 08-07-2023 Urea nitrogen [Mass/Vol] 8 mg/dL 7-18 [facility] Thin prep Papanicolaou smear with manual screeningOrdered By: Xavier Duarte on 08-07-2023 Thin prep Papanicolaou smear with manual screening 14 U/L 15-37 [facility] Thin prep Papanicolaou smear with manual screening 5 5-15 [facility] - Microbiology an d Antimicrobial susceptibilityon 06-23-2023 SARS-CoV-2 (COVID-19) RNA DAVID+probe Ql (Unsp spec) Detected [facility] 24 hour urine creatinine aliza surement (mass/time)Ordered By: Dr. Duarte on 01-16-2023 Creatinine (24H U) [Mass/Time] 1.29 g/24 HR 0.70-1.90 [facility] 24 hour urine free cortisol measurement (mass/time)Ordered By: Dr. Duarte on 01-16-2023 Cortisol Free (24H U) [Mass/Time] 23 ug/24 hr 6-42 [facility] Comment on above: Performed at: [address] [id number] Director: Cristobal Solorio MD, Phone: [phone] 24 hour urine normetanephrin e measurement (mass/time)Ordered By: Dr. Duarte on 01-16-2023 Normetanephrine (24H U) [Mass/Time] 230 ug/24 hr 131-612 [facility] - Specimen inform ationOrdered By: Dr. Duarte on 01-16-2023 Collection duration (U) 24.0 HOURS 24.0-24.0 [facility] No Panel InformationOrdered By: Dr. Duarte on 01-16-2023 Urine Metanephrines 24 Hour 46 ug/24 hr 36-209 [facility] Urine Normetanephrine 80 ug/L Undefined [facility] Quantitative urine free soumya isol measurement (mass/volume)Ordered By: Dr. Duarte on 01-16-2023 Cortisol Free (U) [Mass/Vol] 8 ug/L Undefined [facility] Urine creatinine measurement (mass/volume)Ordered By: Dr. Duarte on 01-16-2023 Creatinine (U) [Mass/Vol] 44.70 mg/dL NO RANGE EST. [facility] Urine metanephrine measureme nt (mass/volume)Ordered By: Dr. Duarte on 01-16-2023 Metanephrine (U) [Mass/Vol] 16 ug/L Undefined [facility] Urine volume measurementOrde red By: Dr. Duarte on 01-16-2023 Specimen volume (U) 2.90 L [facility] Serum or plasma cortisol aliza surement (mass/volume)Ordered By: Dr. Duarte on 12-18-2022 Cortisol [Mass/Vol] 1.10 ug/dL 3.44-22.45 [facility] Comment on above: Adult (AM) 5.27 - 22 .45 ug/dL Adult (PM) 3.44 - 16.76 ug/dLPlease note revised CORTISOL reference range effective 2019. No Panel InformationOrdered By: Gloria Grande on 12-08-2022 Endomysial IgA Antibody Negative Negative [facility] Serum IgA measurement (units /volume)Ordered By: Gloria Grande on 12-08-2022 IgA Qn (S) 106 mg/dL 87-352 [facility] Comment on above: Performed at: [address] Director: Alvin Delong PhD, Phone: [phone] Serum or plasma ferritin aliza surement (mass/volume)Ordered By: Gloria Grande on 12-08-2022 Ferritin [Mass/Vol] 67 ng/mL 8-252 [facility] Serum tissue transglutaminas e IgA antibody assay (units/volume)Ordered By: Gloria Grande on 12-08-2022 tTG IgA Qn (S) <2 U/mL 0-3 [facility] Comment on above: Negative 0 - 3 Weak Positive 4 - 10 Positive >10 Tissue Transglutaminase (tTG) has been identified as the endomysial antigen. Studies have demonstr- ated that endomysial IgA antibodies have over 99% specificity for gluten sensitive enteropathy. Basophil percentageOrdered B y: Dr. Duarte on 12-05-2022 Bilirubin [Mass/Vol] 0.30 mg/dL 0.20-1.00 [facility] Comment on above: For patients on eltr ombopag therapy, use of Dimension [place] TBIL is not recommended. Chloride [Moles/Vol] 108 mmol/L 98-107 [facility] Glucose [Mass/Vol] 79 mg/dL 74-106 [facility] Potassium [Moles/Vol] 4.1 mmol/L 3.5-5.1 [facility] Protein [Mass/Vol] 7.5 g/dL 6.4-8.2 [facility] Sodium [Moles/Vol] 141 mmol/L 136-145 [facility] Laboratory - Chemistry and C hemistry - challengeOrdered By: Dr. Duarte on 12-05-2022 ALP [Catalytic activity/Vol] 72 U/L 45-117 [facility] ALT [Catalytic activity/Vol] 31 U/L 13-56 [facility] CO2 [Moles/Vol] 26.0 mmol/L 21.0-32.0 [facility] Globulin (S) [Mass/Vol] 3.7 g/dL 2.2-4.2 [facility] Urea nitrogen/Creatinine [Mass ratio] 9.1 mg/mg 10-20 [facility] No Panel InformationOrdered By: Dr. Duarte on 12-05-2022 Estimated GFR (MDRD) Amer 94 mL/min >60 [facility] Comment on above: GFR Calc Estimated GFR (MDRD) Non-Af Amer 78 mL/min >60 [facility] Comment on above: Non- GFR Calc Thyroid Stimulating Hormone (TSH) 2.26 uIU/mL 0.358-3.74 [facility] Vitamin D 25-Hydroxy 79.8 ng/mL [facility] Comment on above: Vitamin D 25(OH) Sta tus Range Deficiency <20 ng/mL (50nmol/L) Insufficiency 20 - 30 ng/mL (50 - 75 nmol/L) Sufficiency 30 - 100 ng/mL (75 - 250 nmol/L) Toxicity >100 ng/mL (>250 nmol/L) Serum or plasma albumin tram urement (mass/volume)Ordered By: Dr. Duarte on 12-05-2022 Albumin [Mass/Vol] 3.8 g/dL 3.2-5.0 [facility] Serum or plasma albumin/glob ulin mass ratioOrdered By: Dr. Duarte on 12-05-2022 Albumin/Globulin [Mass ratio] 1.0 {ratio} 0.9-2.4 [facility] Serum or plasma calcium tram urement (mass/volume)Ordered By: Dr. Duarte on 12-05-2022 Calcium [Mass/Vol] 9.4 mg/dL 8.5-10.1 [facility] Serum or plasma creatinine m easurement (mass/volume)Ordered By: Dr. Duarte on 12-05-2022 Creatinine [Mass/Vol] 0.88 mg/dL 0.55-1.02 [facility] Comment on above: The validity of the calculated GFR & GFRAA in patients over 70 years has not been determined. Clinical correlation is essential. Serum or plasma urea nitroge n measurement (mass/volume)Ordered By: Dr. Duarte on 12-05-2022 Urea nitrogen [Mass/Vol] 8 mg/dL 7-18 [facility] Thin prep Papanicolaou smear with manual screeningOrdered By: Dr. Duarte on 12-05-2022 Thin prep Papanicolaou smear with manual screening 21 U/L 15-37 [facility] Thin prep Papanicolaou smear with manual screening 7 5-15 [facility] Absolute lymphocyte countOrd ered By: HEALTH ASSESSMENT on 10-17-2022 Lymphocytes Auto (Unsp spec) [#/Vol] 2.04 10*3/uL 0.83-4.51 [facility] Absolute reticulocyte countO rdered By: HEALTH ASSESSMENT on 10-17-2022 Reticulocytes (Bld) [#/Vol] 0.00 10*3/uL 0-5 [facility] Basophil percentageOrdered B y: HEALTH ASSESSMENT on 10-17-2022 Basophil percentage 3.5 mg/dL 2.5-4.9 [facility] Bilirubin [Mass/Vol] 0.20 mg/dL 0.20-1.00 [facility] Comment on above: For patients on eltr ombopag therapy, use of Dimension [place] TBIL is not recommended. Chloride [Moles/Vol] 105 mmol/L 98-107 [facility] Cholesterol [Mass/Vol] 155 mg/dL <200 [facility] Comment on above: <200 mg/dL Desirable 200-240 mg/dL Borderline >240 mg/dL High Risk Glucose [Mass/Vol] 97 mg/dL 74-106 [facility] LDH [Catalytic activity/Vol] 185 U/L 84-246 [facility] Neutrophils (Bld) [#/Vol] 3.6 10*3/uL 2.0-7.7 [facility] Potassium [Moles/Vol] 4.0 mmol/L 3.5-5.1 [facility] Protein [Mass/Vol] 7.4 g/dL 6.4-8.2 [facility] Sodium [Moles/Vol] 141 mmol/L 136-145 [facility] Triglyceride [Mass/Vol] 121 mg/dL <199 [facility] Comment on above: The drugs N-Acetylcy steine and Metamizole may falsely depress this assay.Serum Triglycerides Reference Interval Normal <150 mg/dL Borderline high 150 - 199 mg/dL High 200 - 499 mg/dL Very High > or = 500 mg/dL WBC (Bld) [#/Vol] 6.3 10*3/uL 4.4-11.0 [facility] Blood erythrocytes count (nu mber/volume)Ordered By: HEALTH ASSESSMENT on 10-17-2022 RBC (Bld) [#/Vol] 4.28 10*6/uL 4.2-5.4 [facility] Blood hemoglobin measurement (mass/volume)Ordered By: HEALTH ASSESSMENT on 10-17-2022 Hemoglobin (Bld) [Mass/Vol] 14.1 g/dL 12.0-15.0 [facility] Blood platelet mean volumeOr dered By: HEALTH ASSESSMENT on 10-17-2022 Platelet mean volume (Bld) [Entitic vol] 10.4 fL 6.2-12.0 [facility] Determination of erythrocyte mean corpuscular volume (MCV)Ordered By: HEALTH ASSESSMENT on 10-17-2022 MCV (RBC) [Entitic vol] 97.2 fL 81-99 [facility] Direct bilirubinOrdered By: HEALTH ASSESSMENT on 10-17-2022 Bilirubin.direct [Mass/Vol] 0.09 mg/dL 0.00-0.30 [facility] Hematocrit Auto (Bld) [Volum e fraction]Ordered By: HEALTH ASSESSMENT on 10-17-2022 Hematocrit (Bld) [Volume fraction] 41.6 % 37-47 [facility] Laboratory - Chemistry and C hemistry - challengeOrdered By: HEALTH ASSESSMENT on 10-17-2022 ALP [Catalytic activity/Vol] 74 U/L 45-117 [facility] ALT [Catalytic activity/Vol] 30 U/L 13-56 [facility] Cholesterol.total/Rhoda sterol in HDL [Mass ratio] 2.30 {ratio} [facility] CO2 [Moles/Vol] 27.0 mmol/L 21.0-32.0 [facility] Globulin (S) [Mass/Vol] 3.5 g/dL 2.2-4.2 [facility] Urea nitrogen/Creatinine [Mass ratio] 7.0 mg/mg 10-20 [facility] Laboratory - Hematology and Cell countsOrdered By: HEALTH ASSESSMENT on 10-17-2022 Erythrocyte distribution width (RBC) [Entitic vol] 42.9 fL 35.1-43.9 [facility] Erythrocyte distribution width (RBC) [Ratio] 11.9 % 11.6-14.6 [facility] MCH (RBC) [Entitic mass] 32.9 pg 27.0-32.0 [facility] Nucleated RBC/100 WBC (Bld) [Ratio] 0 % 0-5 [facility] MCHC Auto (RBC) [Mass/Vol]Or dered By: HEALTH ASSESSMENT on 10-17-2022 MCHC (RBC) [Mass/Vol] 33.9 g/dL 32-36 [facility] No Panel InformationOrdered By: HEALTH ASSESSMENT on 10-17-2022 Estimated GFR (MDRD) Amer 97 mL/min >60 [facility] Comment on above: GFR Calc Estimated GFR (MDRD) Non-Af Amer 80 mL/min >60 [facility] Comment on above: Non- GFR Calc Platelets bldOrdered By: KANCHAN LTH ASSESSMENT on 10-17-2022 Platelets (Bld) [#/Vol] 197 10*3/uL 150-450 [facility] Segmented neutrophils/100 WB C Auto (Bld)Ordered By: HEALTH ASSESSMENT on 10-17-2022 Segmented neutrophils/100 WBC (Bld) 56.8 % 47-70 [facility] Serum or plasma albumin tram urement (mass/volume)Ordered By: HEALTH ASSESSMENT on 10-17-2022 Albumin [Mass/Vol] 3.9 g/dL 3.2-5.0 [facility] Serum or plasma albumin/glob ulin mass ratioOrdered By: HEALTH ASSESSMENT on 10-17-2022 Albumin/Globulin [Mass ratio] 1.1 {ratio} 0.9-2.4 [facility] Serum or plasma calcium tram urement (mass/volume)Ordered By: HEALTH ASSESSMENT on 10-17-2022 Calcium [Mass/Vol] 9.2 mg/dL 8.5-10.1 [facility] Serum or plasma cholesterol in HDL measurement (mass/volume)Ordered By: HEALTH ASSESSMENT on 10-17-2022 Cholesterol in HDL [Mass/Vol] 67 mg/dL >40 [facility] Comment on above: The drugs N-Acetylcy steine and Metamizole may falsely depress this assay. Reference Range HDL <40 mg/dL Low HDL Cholesterol HDL >or= 60 mg/dL High HDL Cholesterol Serum or plasma cholesterol in VLDL measurement (mass/volume)Ordered By: HEALTH ASSESSMENT on 10-17-2022 Cholesterol in VLDL [Mass/Vol] 24 mg/dL 5-40 [facility] Serum or plasma creatinine m easurement (mass/volume)Ordered By: HEALTH ASSESSMENT on 10-17-2022 Creatinine [Mass/Vol] 0.85 mg/dL 0.55-1.02 [facility] Comment on above: The validity of the calculated GFR & GFRAA in patients over 70 years has not been determined. Clinical correlation is essential. Serum or plasma low density lipoprotein (LDL) cholesterol measurement (mass/volume)Ordered By: HEALTH ASSESSMENT on 10-17-2022 Cholesterol in LDL [Mass/Vol] 64 mg/dL 0-130 [facility] Serum or plasma urea nitroge n measurement (mass/volume)Ordered By: HEALTH ASSESSMENT on 10-17-2022 Urea nitrogen [Mass/Vol] 6 mg/dL 7-18 [facility] Serum or plasma uric acid me asurement (mass/volume)Ordered By: HEALTH ASSESSMENT on 10-17-2022 Urate [Mass/Vol] 4.0 mg/dL 2.6-6.0 [facility] Comment on above: The drugs N-Acetylcy steine and Metamizole may falsely depress this assay. Thin prep Papanicolaou smear with manual screeningOrdered By: HEALTH ASSESSMENT on 10-17-2022 Thin prep Papanicolaou smear with manual screening 23 U/L 15-37 [facility] Thin prep Papanicolaou smear with manual screening 9 5-15 [facility] BACTERIAL VAGINOSIS AMPLIFIC ATIONon 08-20-2022 Lactobacillus crispatus+gasseri+jense bryan + Gardnerella vaginalis + Atopobium vaginae rRNA DAVID+probe Ql (Vag fld) Negative Normal Negative for bacterial vaginosis [facility] Comment on above: Order Comment: Speci men Type: SWAB Ordering Facility: [facility] Address: [address] [place] [address] Performed By: #### B VAMP, CVTV #### [facility] CLIA [id number] [address] [place] [address] OF [facility] FAISAL / TRICHOMONAS AMPLIF ICATIONon 08-20-2022 FAISAL / TRICHOMONAS AMPLIFICATION FAISAL SPECIES GROUP RNA: Negative for Faisal species FAISAL GLABRATA RNA: Negative for Faisal glabrata TRICH VAG AMPLIFICATION RNA: Negative for Trichomonas vaginalis by amplification Normal [facility] Comment on above: Performed By: #### B VAMP, CVTV #### [facility] CLIA [id number] [address] [place] [address] OF [place] CNOVon 08-20-2022 CNOV Office Visit (OBSERGIOWKamryn ) -- TATIANA PATTON ([id number]) 1985 F Date Time Provider Department 08/20/22 9:30 AM PHOEBE PIERSON During your visit today, we recorded the following information about you: Weight Height Last Period 77.6 kg 1.638 m 08/11/22 Phoebe Pierson APRN.MANAGER CLEANING 08/20/2022 11:27 AM Signed Case Maker offered: Patient declines. Tatiana is a [...] L0 SAB0 IAB0 Ectopic0 Multiple0 Live Births0 Security Assurance Specialist History LMP: 06/20/2021 (Exact Date), Having periods Age at Menarche: Age at First : Age at Menopause: Security Assurance Specialist History Comments: Sexual Activity: Yes; Male Contraception: None PAST MEDICAL HISTORY Diagnosis Date Adrenal adenoma 2021 bilateral, asymptomatic. Diagnosed by endocrinology Celiac disease 12/2021 Laryngopharyngeal reflux Mononucleosis Multiple allergies Referred by primary care physician Dr. Michele Madden - PCP PAST SURGICAL HISTORY Procedure [...] external genitalia normal, normal [place]th[place]'s glands, urethra, [place]'s glands, no vulvar lesions, no cervical lesions, [...] stop menstrual flow - will consider. Phoebe Pierson APRN.MANAGER CLEANING Allergies As of Date: 08/20/2022 Noted Allergy Reaction CODEINE 02/13/2009 7 - Swelling 10 - Anaphylaxis Environmental allergies [Other] 05/10/2009 Comments: Cats, dogs, dust mites, molds, trees, grasses, weeds, ragweed GLUTEN 07/01/20 (more content not included)... Normal [facility] ANES POSTPROC EVALon 022 ANES POSTPROC EVAL HNO ID: [id number] Author: Danilo Silvestre MD Service: Anesthesiology Author Type: Physician Type: Anesthesia Postprocedure Evaluation Filed: 07/04/2022 7:05 PM Note Text: POST ANESTHESIA EVALUATION NOTE : 1985 Procedure Summary Date: 07/04/22 Room / Location: OR / OR Anesthesia Start: 1534 Anesthesia Stop: 1828 Procedures: LIPOSUCTION TORSO (Bilateral: Back) LIPOSUCTION NECK (Bilateral: Neck) Diagnosis: Encounter for cosmetic procedure (Encounter for cosmetic procedure [Z41.1]) Surgeons: Danii Chiu DO Responsible Provider: Danilo Silvestre MD Anesthesia Type: general ASA Status: 2 Anesthesia Type: general Airway Type: ETT Last Vitals Vitals Value Taken Time BP 105/69 07/04/22 1900 Temp 36.7 ?C (98.1 ?F) 07/04/22 1830 Pulse 88 07/04/22 1903 Resp 10 07/04/22 1834 SpO2 99 % 07/04/22 190 Vitals shown include unvalidated device data. Post Anesthesia Patient Status Patient Evaluation: PACU. PACU/ICU Patient Condition: stable. Anticipated Disposition: phase 2 then home. Neurological Status: aware and responsive. Pulmonary Status: breathing comfortably on room air Airway Control: returned to baseline unsupported. Cardiovascular Status: stable. Pain Management: clinically adequate Postoperative Hydration: acceptable. Intraoperative Events: no significant anesthesia events Post Operative Nausea/Vomiting Status: PONV - significant post operative nausea or vomiting with additional medications being ordered/administered. Recommendation: continue current plan of care. Anesthesia Observations No Documentation SIGNATURE: Danilo Silvestre MD PATIENT NAME: Tatiana Patton DATE: July 04, 2022 TIME: 7:04 PM CSN: [id number] [facility] ANES PRE-OPon 07-04-2022 ANES PRE-OP HNO ID: [id number] Author: Mariella Martinez MD Service: Anesthesiology Author Type: Anesthesiologist Type: Anesthesia Preprocedure Evaluation Filed: 07/04/2022 1:22 PM Note Text: ANESTHESIOLOGY DAY OF SURGERY NOTE : 1985 37 yo female with HX: allergies, GERD, mononucleosis. Procedure Information Date/Time: 07/04/22 1430 Procedures: LIPOSUCTION TORSO (Bilateral: Back) LIPOSUCTION NECK (Bilateral: Neck) Location: MR OR 11 / MR OR Surgeons: Danii Chiu DO Estimated body mass index is 29.09 kg/m? as calculated from the following: Height as of this encounter: 165.1 cm (5' 5). Weight as of this encounter: 79.3 kg (174 lb 12.8 oz). Most recent hematocrit and potassium results: No results found for this basename: HCT,HEMATOCRIT,K,POTASSIUM Relevant Problems No relevant active problems I - PHYSICAL EVALUATION AIRWAY Patient intubated: No. Tracheostomy tube not present Mallampati: II. TM distance: >3 FB. Neck ROM: full ROM without neurological symptoms. Mouth opening: adequate. Short neck: no. Thick neck: no Rios present: no Additional exam findings: yes. CARDIOVASCULAR Rhythm: regular Murmur not present. PULMONARY Rhonchi not present. ABDOMINAL Abdomen: soft. Bowel sounds: normal. II - ANESTHESIA PLAN ASA Score: 2 Anesthetic Plan: general Airway type: ETT The patient is not a current smoker. NPO Status: adequate Beta Melani Administration of chronic beta melani medication not planned. Monitoring Plan Monitoring plan: standard ASA. Post Procedure Analgesic Plan Postoperative analgesic plan: parenteral or oral opioids and multimodal analgesia. Informed Consent Anesthetic risks, benefits, alternatives, personnel and consent discussed: yes. Patient / Surrogate agrees to blood products: blood products not planned DNR status not reviewed with patient and/or family prior to surgery. Significant changes in the patient condition since the History and Physical, not otherwise documented in primary service progress note: no. Potential Anesthesia issues that may suggest increased risk of complications or contraindication to planned procedure: none. Vitals Value Taken Time BP 126/80 07/04/22 1304 Pulse 79 07/04/22 1304 Resp 18 07/04/22 1304 Temp 36.4 ?C (97.6 ?F) 07/04/22 1304 SpO2 100 % 07/04/22 1304 Facility-Administered Medications as of 07/04/2022 Medication Dose Route Frequency - lactated ringers iv infusion 30 mL/hr INTRAVENOUS CONTINUOUS - ceFAZolin iv piggyback 2 g in D5W (iso-osmotic) 100 mL (ANCEF) 2 g INTRAVENOUS Pre-Op Once Outpatient Medications as of 07/04/2022 Medication Sig - famotidine (PEPCID) 20 mg tablet Take 20 mg by mouth twice daily. - Ferrous Sulfate (SLOW FE) 142 mg (45 mg iron) TbER Take 45 mg by mouth every morning. - Ca carb-Ca gluc-Mg ox-Mg gluco (CALCIUM MAGNESIUM) 500 mg calcium -250 mg tab Take 1 tablet by mouth twice daily. - cholecalciferol, vitD3,/vit K2 (VITAMIN D3-VITAMIN K2 ORAL) Take 1 tablet by mouth every morning. - COLLAGEN MISC Take by mouth every morning. - Cyanocobalamin 2,500 mcg subl Take 1 tablet by mouth every morning. - melatonin 5 mg ODT Take 5 mg by mouth daily at bedtime. - olopatadine (PATADAY ONCE DAILY RELIEF) 0.7 % Use in both eyes as needed. - polaprezinc, zinc carnosine, (PEPZINGI ORAL) Take 1 tablet by mouth every morning. - CETIRIZINE 10 MG TAB Take 10 mg by mouth every morning. I have interviewed and examined the patient. I have reviewed the medical record and/or the pre-anesthesia evaluation, pertinent labs, and test results. This contains updated information obtained within 48 hours of Surgery/Procedure. SIGNATURE: Mariella Martinez MD PATIENT NAME: Tatiana Patton DATE: July 04, 2022 TIME: 1:19 PM CSN: [id number] Normal [facility] HCG ( test) Ql (U)o n 07-04-2022 Specific gravity (U) [Rel density] 1.004 Low 1.005-1.03 0 [facility] Comment on above: Order Comment: Speci men Type: URINE SPECIMEN Ordering Facility: [facility] Address: [address] [place] [address] [place] [address] Performed By: #### 2 106-3 #### [facility] CLIA [id number] [address] [place] [address] [place] HCG Preg Ur Qlon 07-04-2022 HCG ( test) Ql (U) [facility] Comment on above: Order Comment: Speci men Type: URINE SPECIMEN Ordering Facility: [facility] Address: [place] [address] Result Comment: Not done specific gravity low Performed By: #### 2 106-3 #### [facility] CLIA [id number] [address] [place], [place] [id number] [facility] HCG QUAL BLDon 07-04-2022 HCG, QUALITATIVE Negative Normal Negative [facility] Comment on above: Order Comment: Speci men Type: BLOOD SPECIMEN Ordering Facility: [facility] Address: [place] [address] Performed By: #### H CG #### [facility] CLIA [id number] [address] [place], [place] [id number] [facility] HISTORY PHYSICALon HISTORY PHYSICAL HNO ID: [id number] Author: Danii Chiu DO Service: Plastic Surgery Author Type: Physician Type: HANDP Filed: 07/04/2022 3:03 PM Note Text: Patient seen and examined, no interval changes since last visit in office. Normal [facility] OPERATIVE NOon 07-04-2022 OPERATIVE NO HNO ID: [id number] Author: Danii Chiu DO Service: Plastic Surgery Author Type: Physician Type: Operative Report Filed: 07/04/2022 6:49 PM Note Text: OPERATIVE NOTE PLASTIC AND RECONSTRUCTIVE SURGERY LOG ID: [id number] Surgery/Procedure Date: 07/04/2022 Incision/Procedure Start Time: 4:09 PM Incision Close/Procedure End Time: 6:17 PM Surgeon(s)/Proceduralist(s ) and Commercial Photographer(s): Surgeon(s) and Role: * Danii Chiu DO - Primary No Additional Staff Procedure(s): Liposuction bilateral flanks Liposuction submental chin and jaw line Anesthesia: General Procedure in detail: Patient was seen on the morning of surgery in the preoperative holding area. Postop course, wound care and follow-up were discussed with her in detail. All questions were answered to her satisfaction. Informed consent was signed. All targeted treatment areas for liposuction were then marked in the standing upright position. She was taken to the operative suite at [facility] and monitored throughout the procedure with continuous EKG monitoring and intermittent BP monitoring. IV antibiotics were administered. SCDs were placed on both lower extremities. General anesthesia was induced, and her airway was secured. Rucker catheter was inserted which was removed at the conclusion of the procedure. She was then placed in the prone position on the OR table. A presurgical time out was performed. Her back and flanks were now prepped and draped in usual sterile fashion. Three 5 mm stab incisions were then made along the midline of her back, one in the superior aspect of the gluteal cleft, and two in the lower back. These were used for the passage of tumescent infiltration cannulas, and liposuction cannulas. Power assisted liposuction using micro air was now started. 4 mm, and 3 mm blunt tipped cannulas were used to suction fat from her flanks and lower back. Both superficial and deep layers of fat were addressed. Standard cannula precautions were used to prevent injury to the underlying structures. After desired contour had been achieved, and symmetry had been confirmed, her incisions were closed using inverted interrupted stitches of 4-0 Monocryl. Her skin was cleaned, Steri-Strips and overlying sterile dressings were applied. Patient was then placed in the supine position on the OR table. Her abdomen and flanks were now prepped and draped in usual sterile fashion. Two 5 mm stab incisions were then made in the suprapubic crease for passage of tumescent fluid infiltration cannulas, and liposuction cannulas. Anterior aspect of the flanks was addressed through these incisions. Tumescent fluid was infiltrated. Then power assisted liposuction was performed using microaire. 3 mm blunt tipped cannula was then used to suction fat from the targeted, previously marked areas. Both superficial and deep layers of fat were addressed. Standard cannula precautions were used to prevent injury. After the desired contour and shape had been achieved, the incisions were closed using inverted interrupted stitches of 5-0 Monocryl. The skin was cleaned, Steri-Strips and overlying sterile dressings were applied. Attention was now turned to the neck and jaw line. Her face and neck were prepped and draped in usual sterile fashion. Her airway was carefully maintained throughout the procedure. Three 5 mm stab incisions were made - one in the submental crease, and two under the lobes of her ears - for passage of tumescent infiltration cannulas and liposuction cannulas. Tumescent fluid was then infiltrated into the neck and adequate time was given for the medication to take effect. Manual liposuction was then performed using 3mm and 2mm blunt tipped cannulas. Care was taken in all planes to prevent injury to important neurovascular structures. After adequate contour had been achieved the incisions were closed using 5-0 fast absorbing chromic gut suture and covered with steri strips. Patient was then placed in a compression garment with foam on her flanks, and a neck garment was also placed to provide compression. Her anesthesia was reversed, and she was transferred to PACU in stable postoperative condition after tolerating the procedure well Estimated Blood Loss: 50 mL IV Fluids: 1400 ml Tumescent fluid: Total in 3700cc - neck 200cc, flanks 3500cc Aspirate: Total 3000cc - neck 50cc, flanks 2950cc Tubes/Drains: None Specimens: None Complications: None Pre-Procedure Diagnosis: Cosmetic dissatisfaction flanks, and submental chin/jaw line Post-Procedure Diagnosis: Same as Preop Post-Op Plan / Disposition: Discharge home SIGNATURE: Danii Chiu DO PATIENT NAME: Tatiana Patton DATE: July 04, 2022 TIME: 6:[address] [facility] ANES PREOPon 07-03-2022 ANES PREOP HNO ID: [id number] Author: Ramandeep Mcgee APRN.MANAGER [employer] Service: ? Author Type: Nurse Practitioner Type: Anesthesia PreOp Filed: 07/03/2022 10:38 AM Note Text: 37 yo female with HX: allergies, GERD, mononucleosis. [facility] Basophil percentageon 2021 Bilirubin [Mass/Vol] 0.30 mg/dL 0.20-1.00 [facility] Work Phone: Comment on above: For patients on eltr ombopag therapy, use of Dimension [place] TBIL is not recommended. Chloride [Moles/Vol] 107 mmol/L 98-107 [facility] Work Phone: Glucose [Mass/Vol] 78 mg/dL 74-106 [facility] Work Phone: Potassium [Moles/Vol] 4.1 mmol/L 3.5-5.1 [facility] Work Phone: Protein [Mass/Vol] 7.6 g/dL 6.4-8.2 [facility] Work Phone: Sodium [Moles/Vol] 140 mmol/L 136-145 [facility] Work Phone: Laboratory - Chemistry and C hemistry - challengeon 05-13-2022 ALP [Catalytic activity/Vol] 79 U/L 45-117 [facility] Work Phone: ALT [Catalytic activity/Vol] 28 U/L 13-56 [facility] Work Phone: CO2 [Moles/Vol] 27.0 mmol/L 21.0-32.0 [facility] Work Phone: Globulin (S) [Mass/Vol] 3.8 g/dL 2.2-4.2 [facility] Work Phone: Urea nitrogen/Creatinine [Mass ratio] 8.8 mg/mg 10-20 [facility] Work Phone: No Panel Informationon 05-13 Estimated GFR (MDRD) Amer 79 mL/min >60 [facility] Work Phone: Comment on above: GFR Calc Estimated GFR (MDRD) Non-Af Amer 65 mL/min >60 [facility] Work Phone: Comment on above: Non- GFR Calc Thyroid Stimulating Hormone (TSH) 1.96 uIU/mL 0.358-3.74 [facility] Work Phone: Serum or plasma albumin tram urement (mass/volume)on 05-13-2022 Albumin [Mass/Vol] 3.8 g/dL 3.2-5.0 [facility] Work Phone: Serum or plasma albumin/glob ulin mass ratioon 05-13-2022 Albumin/Globulin [Mass ratio] 1.0 {ratio} 0.9-2.4 [facility] Work Phone: Serum or plasma calcium tram urement (mass/volume)on 05-13-2022 Calcium [Mass/Vol] 9.7 mg/dL 8.5-10.1 [facility] Work Phone: Serum or plasma creatinine m easurement (mass/volume)on 05-13-2022 Creatinine [Mass/Vol] 1.02 mg/dL 0.55-1.02 [facility] Work Phone: Comment on above: The validity of the calculated GFR & GFRAA in patients over 70 years has not been determined. Clinical correlation is essential. Serum or plasma urea nitroge n measurement (mass/volume)on 05-13-2022 Urea nitrogen [Mass/Vol] 9 mg/dL 7-18 [facility] Work Phone: Thin prep Papanicolaou smear with manual screeningon 05-13-2022 Thin prep Papanicolaou smear with manual screening 18 U/L 15-37 [facility] Work Phone: Thin prep Papanicolaou smear with manual screening 6 5-15 [facility] Work Phone: No Panel Informationon 03-20 Miscellaneous Test See comment [facility] Work Phone: Comment on above: TEST RESULT LIMITSIB D Expanded PanelgASCA 27 units 0-50 Negative <45 Equivocal 45 - 50 Positive >50ACCA 19 units 0-90 Negative <80 Equivocal 80 - 90 Positive >90ALCA 13 units 0-60 Negative <55 Equivocal 55 - 60 Positive >60AMCA 67 units 0-100 Negative < 90 Equivocal 90 - 100 Positive >100 This test was developed and its performance characteristics determined by [facility]. It has not been cleared or approved by the Food and Drug Administration. The FDA has determined that such clearance or approval is not necessary.Atypical pANCA Negative NegativeCommentsPattern is not suggestive of Inflammatory Bowel Disease __ [facility] PERFORMED [facility]. ORIGINAL REPORT ON FILE IN LAB CONTAINS ADDITIONAL TEST SITE INFORMATION. 24 hour urine free cortisol measurement (mass/time)on 03-11-2022 Cortisol Free (24H U) [Mass/Time] 24 ug/24 hr 6-42 [facility] Work Phone: Comment on above: Performed at: - [address] [id number] Director: Cristobal Solorio MD, Phone: [phone] 24 hour urine normetanephrin e measurement (mass/time)on 03-11-2022 Normetanephrine (24H U) [Mass/Time] 224 ug/24 hr 131-612 [facility] Work Phone: No Panel Informationon 03-11 Urine Metanephrines 24 Hour 57 ug/24 hr 36-209 [facility] Work Phone: Urine Normetanephrine 83 ug/L Undefined [facility] Work Phone: Quantitative urine free soumya isol measurement (mass/volume)on 03-11-2022 Cortisol Free (U) [Mass/Vol] 9 ug/L Undefined [facility] Work Phone: Urine metanephrine measureme nt (mass/volume)on 03-11-2022 Metanephrine (U) [Mass/Vol] 21 ug/L Undefined [facility] Work Phone: Laboratory - Chemistry and C hemistry - challengeon 03-06-2022 HCG ( test) Ql (U) Negative [facility] Work Phone: Comment on above: Very dilute urine sp ecimens, as indicated by a low specificgravity, may not contain cordage sales representative levels of hCG. If is still suspected, a first morning urinespecimen should be collected 48 hours later and tested. Giardia lamblia ag stool EIA on 12-10-2021 G. lamblia Ag IA Ql (Stl) Negative Negative [facility] Work Phone: Comment on above: Performed at: [employer] [address] [id number] Director: Cristobal Solorio MD, Phone: [phone] at: [employer] - [facility] [address] [id number] Director: Alvin Delong PhD, Phone: [phone] No Panel Informationon 12-10 Enteric Bacteriology [facility] Work Phone: Stool Calprotectin 33 ug/g 0-120 [facility] Work Phone: Comment on above: Concentration Interp retation Follow-Up<16 - 50 ug/g Normal None>50 -120 ug/g Borderline Re-evaluate in 4-6 weeks >120 ug/g Abnormal Repeat as clinically indicatedPerformed at: [employer] [address] [id number] Director: Cristboal Solorio MD, Phone: [phone] Stool Helicobacter pylori an tigen detection by immunoassayon 12-10-2021 H. pylori Ag IA Ql (Stl) Negative Negative [facility] Work Phone: Basophil percentageon 2021 Basophil percentage < 0.2 AI 0.0-0.9 [facility] Work Phone: Potassium [Moles/Vol] 3.8 mmol/L 3.5-5.1 [facility] Work Phone: Erythrocyte sedimentation ra nguyễn 12-04-2021 ESR (Bld) [Velocity] 11 mm/h 0-30 [facility] Work Phone: No Panel Informationon 12-04 Centromere B Antibody <0.2 AI 0.0-0.9 [facility] Work Phone: Endomysial IgA Antibody Positive Negative [facility] Work Phone: DIRECTOR ENVIRONMENTAL Antibody <0.2 AI 0.0-0.9 [facility] Work Phone: Serum DNA double strand anti body assay (units/volume)on 12-04-2021 DNA double strand Ab Qn (S) 1 [IU]/mL 0-9 [facility] Work Phone: Comment on above: Negative <5 Equivoca l 5 - 9 Positive >9 Serum Mayra-1 antibody assay (u nits/volume)on 12-04-2021 Mayra-1 extractable nuclear Ab Qn (S) <0.2 AI 0.0-0.9 [facility] Work Phone: Serum Scl-70 extractable nuc lear antibody assay (units/volume)on 12-04-2021 SCL-70 extractable nuclear Ab Qn (S) <0.2 AI 0.0-0.9 [facility] Work Phone: Serum Nelson extractable nucl ear antibody detectionon 12-04-2021 Nelson extractable nuclear Ab Ql (S) <0.2 AI 0.0-0.9 [facility] Work Phone: Serum or plasma C reactive p rotein measurement (mass/volume)on 12-04-2021 CRP [Mass/Vol] mg/L 0.0-3.0 [facility] Work Phone: Comment on above: C-Reactive Protein ( CRP) provides useful information for thediagnosis, therapy and monitoring of inflammatory processesand associated diseases. For the evaluation of Relative Riskfor Cardiovascular Disease, a High Sensitivity CRP (HSCRP)should be ordered. Serum or plasma IgA measurem ent (mass/volume)on 12-04-2021 IgA [Mass/Vol] 135 mg/dL 87-352 [facility] Work Phone: Serum or plasma gastrin tram urement (mass/volume)on 12-04-2021 Gastrin [Mass/Vol] 73 pg/mL 0-115 [facility] Work Phone: Comment on above: Siemens Immulite 200 0 Immunochemiluminometric assay (ICMA)Values obtained with different assay methods or kits cannotbe used interchangeably. Results cannot be interpreted asabsolute evidence of the presence or absence of malignantdisease.Performed at: - [facility] [id number] [place], [place] [id number] Director: Alvin Delong PhD, Phone: [phone] at: - [facility] [address] [id number] Director: Cristobal Solorio MD, Phone: [phone] Serum tissue transglutaminas e IgA antibody assay (units/volume)on 12-04-2021 tTG IgA Qn (S) 8 U/mL 0-3 [facility] Work Phone: Comment on above: Negative 0 - 3 Weak Positive 4 - 10 Positive >10 Tissue Transglutaminase (tTG) has been identified as the endomysial antigen. Studies have demonstr- ated that endomysial IgA antibodies have over 99% specificity for gluten sensitive enteropathy. Absolute lymphocyte counton 11-12-2021 Lymphocytes Auto (Unsp spec) [#/Vol] 1.95 10*3/uL 0.83-4.51 [facility] Work Phone: Absolute reticulocyte counto n 11-12-2021 Reticulocytes (Bld) [#/Vol] 0.00 10*3/uL 0-5 [facility] Work Phone: Basophil percentageon 2021 Basophil percentage 3.8 mg/dL 2.5-4.9 [facility] Work Phone: Bilirubin [Mass/Vol] 0.40 mg/dL 0.20-1.00 [facility] Work Phone: Comment on above: For patients on eltr ombopag therapy, use of Dimension [place] TBIL is not recommended. Chloride [Moles/Vol] 106 mmol/L 98-107 [facility] Work Phone: Cholesterol [Mass/Vol] 140 mg/dL <200 [facility] Work Phone: Comment on above: <200 mg/dL Desirable 200-240 mg/dL Borderline >240 mg/dL High Risk Glucose [Mass/Vol] 94 mg/dL 74-106 [facility] Work Phone: Neutrophils (Bld) [#/Vol] 3.2 10*3/uL 2.0-7.7 [facility] Work Phone: Potassium [Moles/Vol] 3.8 mmol/L 3.5-5.1 [facility] Work Phone: Protein [Mass/Vol] 7.5 g/dL 6.4-8.2 [facility] Work Phone: Sodium [Moles/Vol] 139 mmol/L 136-145 [facility] Work Phone: Triglyceride [Mass/Vol] 72 mg/dL <199 [facility] Work Phone: Comment on above: The drugs N-Acetylcy steine and Metamizole may falsely depress this assay.Serum Triglycerides Reference Interval Normal <150 mg/dL Borderline high 150 - 199 mg/dL High 200 - 499 mg/dL Very High > or = 500 mg/dL WBC (Bld) [#/Vol] 5.8 10*3/uL 4.4-11.0 [facility] Work Phone: Blood erythrocytes count (nu mber/volume)on 11-12-2021 RBC (Bld) [#/Vol] 4.34 10*6/uL 4.2-5.4 [facility] Work Phone: Blood hemoglobin measurement (mass/volume)on 11-12-2021 Hemoglobin (Bld) [Mass/Vol] 13.4 g/dL 12.0-15.0 [facility] Work Phone: Blood platelet mean volumeon 11-12-2021 Platelet mean volume (Bld) [Entitic vol] 11.1 fL 6.2-12.0 [facility] Work Phone: Determination of erythrocyte mean corpuscular volume (MCV)on 11-12-2021 MCV (RBC) [Entitic vol] 91.2 fL 81-99 [facility] Work Phone: Direct bilirubinon 2 Bilirubin.direct [Mass/Vol] 0.14 mg/dL 0.00-0.30 [facility] Work Phone: Hematocrit Auto (Bld) [Volum e fraction]on 11-12-2021 Hematocrit (Bld) [Volume fraction] 39.6 % 37-47 [facility] Work Phone: Laboratory - Chemistry and C hemistry - challengeon 11-12-2021 Magnesium [Mass/Vol] 2.0 mg/dL 1.6-2.6 [facility] Work Phone: ALP [Catalytic activity/Vol] 79 U/L 45-117 [facility] Work Phone: ALT [Catalytic activity/Vol] 22 U/L 13-56 [facility] Work Phone: Cholesterol.total/Rhoda sterol in HDL [Mass ratio] 2.70 {ratio} [facility] Work Phone: CO2 [Moles/Vol] 26.0 mmol/L 21.0-32.0 [facility] Work Phone: Globulin (S) [Mass/Vol] 3.7 g/dL 2.2-4.2 [facility] Work Phone: Urea nitrogen/Creatinine [Mass ratio] 12.3 mg/mg 10-20 [facility] Work Phone: Laboratory - Hematology and Cell countson 11-12-2021 Erythrocyte distribution width (RBC) [Entitic vol] 43.0 fL 35.1-43.9 [facility] Work Phone: Erythrocyte distribution width (RBC) [Ratio] 12.8 % 11.6-14.6 [facility] Work Phone: [phone] MCH (RBC) [Entitic mass] 30.9 pg 27.0-32.0 [facility] Work Phone: Nucleated RBC/100 WBC (Bld) [Ratio] 0 % 0-5 [facility] Work Phone: MCHC Auto (RBC) [Mass/Vol]on 11-12-2021 MCHC (RBC) [Mass/Vol] 33.8 g/dL 32-36 [facility] Work Phone: No Panel Informationon 11-12 Thyroid Stimulating Hormone (TSH) 2.59 uIU/mL 0.358-3.74 [facility] Work Phone: Vitamin B12 Level > 2000 pg/mL 211-911 [facility] Work Phone: Vitamin D 25-Hydroxy 71.6 ng/mL [facility]: Comment on above: Vitamin D 25(OH) Sta tus Range Deficiency <20 ng/mL (50nmol/L) Insufficiency 20 - 30 ng/mL (50 - 75 nmol/L) Sufficiency 30 - 100 ng/mL (75 - 250 nmol/L) Toxicity >100 ng/mL (>250 nmol/L) Estimated GFR (MDRD) Amer 93 mL/min >60 [facility] Work Phone: Comment on above: GFR Calc Estimated GFR (MDRD) Non-Af Amer 77 mL/min >60 [facility] Work Phone: Comment on above: Non- GFR Calc Platelets bldon 11-12-2021 Platelets (Bld) [#/Vol] 220 10*3/uL 150-450 [facility] Work Phone: Segmented neutrophils/100 WB C Auto (Bld)on 11-12-2021 Segmented neutrophils/100 WBC (Bld) 55.4 % 47-70 [facility] Work Phone: Serum or plasma albumin tram urement (mass/volume)on 11-12-2021 Albumin [Mass/Vol] 3.8 g/dL 3.2-5.0 [facility] Work Phone: Serum or plasma albumin/glob ulin mass ratioon 11-12-2021 Albumin/Globulin [Mass ratio] 1.0 {ratio} 0.9-2.4 [facility] Work Phone: Serum or plasma calcium tram urement (mass/volume)on 11-12-2021 Calcium [Mass/Vol] 8.9 mg/dL 8.5-10.1 [facility] Work Phone: Serum or plasma cholesterol in HDL measurement (mass/volume)on 11-12-2021 Cholesterol in HDL [Mass/Vol] 52 mg/dL >40 [facility] Work Phone: Comment on above: The drugs N-Acetylcy steine and Metamizole may falsely depress this assay. Reference Range HDL <40 mg/dL Low HDL Cholesterol HDL >or= 60 mg/dL High HDL Cholesterol Serum or plasma cholesterol in VLDL measurement (mass/volume)on 11-12-2021 Cholesterol in VLDL [Mass/Vol] 14 mg/dL 5-40 [facility] Work Phone: Serum or plasma creatinine m easurement (mass/volume)on 11-12-2021 Creatinine [Mass/Vol] 0.89 mg/dL 0.55-1.02 [facility] Work Phone: Comment on above: The validity of the calculated GFR & GFRAA in patients over 70 years has not been determined. Clinical correlation is essential. Serum or plasma low density lipoprotein (LDL) cholesterol measurement (mass/volume)on 11-12-2021 Cholesterol in LDL [Mass/Vol] 74 mg/dL 0-130 [facility] Work Phone: Serum or plasma urea nitroge n measurement (mass/volume)on 11-12-2021 Urea nitrogen [Mass/Vol] 11 mg/dL 7-18 [facility] Work Phone: Serum or plasma uric acid me asurement (mass/volume)on 11-12-2021 Urate [Mass/Vol] 4.8 mg/dL 2.6-6.0 [facility] Work Phone: Comment on above: The drugs N-Acetylcy steine and Metamizole may falsely depress this assay. Thin prep Papanicolaou smear with manual screeningon 11-12-2021 Thin prep Papanicolaou smear with manual screening 16 U/L 15-37 [facility] Work Phone: Thin prep Papanicolaou smear with manual screening 7 5-15 [facility] Work Phone: Thin prep Papanicolaou smear with manual screening 170 U/L 84-246 [facility] Work Phone: Absolute lymphocyte counton 11-09-2021 Lymphocytes Auto (Unsp spec) [#/Vol] 2.31 10*3/uL 0.83-4.51 [facility] Work Phone: Basophil percentageon 2021 Basophil percentage 0 SEEN /hpf 0-5 [facility] Work Phone: Basophils/100 WBC (Bld) 0.5 % 0-1 [facility] Work Phone: Chloride [Moles/Vol] 105 mmol/L 98-107 [facility] Work Phone: Eosinophils/100 WBC (Bld) 2.6 % 0-5 [facility] Work Phone: Glucose [Mass/Vol] 107 mg/dL 74-106 [facility] Work Phone: Comment on above: Fasting Glucose resu lt from 100 to 125 mg/dL suggests IMPAIRED HOMEOSTASIS per A.D.A. criteria. Neutrophils (Bld) [#/Vol] 4.8 10*3/uL 2.0-7.7 [facility] Work Phone: Neutrophils/100 WBC (Bld) 60.5 % 47-70 [facility] Work Phone: Potassium [Moles/Vol] 3.1 mmol/L 3.5-5.1 [facility] Work Phone: [phone] Sodium [Moles/Vol] 136 mmol/L 136-145 [facility] Work Phone: WBC (Bld) [#/Vol] 7.9 10*3/uL 4.4-11.0 [facility] Work Phone: Beta hCG serum qualon 2021 Beta HCG ( test) Ql Negative [facility] Work Phone: Bilirubin Test strip Ql (U)o n 11-09-2021 Bilirubin Ql (U) Negative Negative [facility] Work Phone: Blood erythrocytes count (nu mber/volume)on 11-09-2021 RBC (Bld) [#/Vol] 4.72 10*6/uL 4.2-5.4 [facility] Work Phone: Blood hemoglobin measurement (mass/volume)on 11-09-2021 Hemoglobin (Bld) [Mass/Vol] 14.4 g/dL 12.0-15.0 [facility] Work Phone: Blood lymphocytes/100 leukoc yteson 11-09-2021 Lymphocytes/100 WBC (Bld) 29.1 % 19-41 [facility] Work Phone: Blood monocytes/100 leukocyt eson 11-09-2021 Monocytes/100 WBC (Bld) 6.9 % 0-10 [facility] Work Phone: Blood platelet mean volumeon 11-09-2021 Platelet mean volume (Bld) [Entitic vol] 11.0 fL 6.2-12.0 [facility] Work Phone: Determination of erythrocyte mean corpuscular volume (MCV)on 11-09-2021 MCV (RBC) [Entitic vol] 88.3 fL 81-99 [facility] Work Phone: Hematocrit Auto (Bld) [Volum e fraction]on 11-09-2021 Hematocrit (Bld) [Volume fraction] 41.7 % 37-47 [facility] Work Phone: Ketones Test strip Ql (U)on 11-09-2021 Ketones Ql (U) 15 mg/dl Negative [facility] Work Phone: Laboratory - Chemistry and C hemistry - challengeon 11-09-2021 CO2 [Moles/Vol] 23.0 mmol/L 21.0-32.0 [facility] Work Phone: Urea nitrogen/Creatinine [Mass ratio] 12.7 mg/mg 10-20 [facility] Work Phone: Laboratory - Hematology and Cell countson 11-09-2021 Erythrocyte distribution width (RBC) [Entitic vol] 40.5 fL 35.1-43.9 [facility] Work Phone: Erythrocyte distribution width (RBC) [Ratio] 12.3 % 11.6-14.6 [facility] Work Phone: Immature granulocytes/100 WBC (Bld) 0.400 % 0.0-0.9 [facility] Work Phone: Comment on above: IG% - Immature Granu locytes (promyelocytes, myelocytes and metamyelocytes) > 1% indicates that a LEFT SHIFT is Present. MCH (RBC) [Entitic mass] 30.5 pg 27.0-32.0 [facility] Work Phone: Nucleated RBC/100 WBC (Bld) [Ratio] 0 % 0-5 [facility] Work Phone: MCHC Auto (RBC) [Mass/Vol]on 11-09-2021 MCHC (RBC) [Mass/Vol] 34.5 g/dL 32-36 [facility] Work Phone: Mucus LM Ql (Urine sed)on Mucus Ql (Urine sed) 0 SEEN /hpf [facility] Work Phone: Nitrite Test strip Ql (U)on 11-09-2021 Nitrite Ql (U) Negative Negative [facility] Work Phone: No Panel Informationon 11-09 D-Dimer Quantitative (PE/DVT) 0.42 FEU/ug/m 0.27-0.49 [facility] Work Phone: Comment on above: NORMAL D-Dimer level (<0.50) indicates no DVT or PE. Estimated Creatinine Clearance Calc 81.99 ml/min [facility] Work Phone: Estimated GFR (MDRD) Amer 96 mL/min >60 [facility] Work Phone: Comment on above: GFR Calc Estimated GFR (MDRD) Non-Af Amer 79 mL/min >60 [facility] Work Phone: Comment on above: Non- GFR Calc Thyroid Stimulating Hormone (TSH) 9.23 uIU/mL 0.358-3.74 [facility] Work Phone: Troponin I High Sensitivity 8 pg/mL 3.0-54.0 [facility] Work Phone: Comment on above: Please Note: New Tabitha t Units and Gender Specific Reference Ranges. For more information see Policy Stat Procedure [place] High Sensitivity Troponin (TNIH) and attachments. Platelets bldon 11-09-2021 Platelets (Bld) [#/Vol] 218 10*3/uL 150-450 [facility] Work Phone: Protein Test strip Ql (U)on 11-09-2021 Protein Ql (U) Negative Negative [facility] Work Phone: Serum or plasma calcium tram urement (mass/volume)on 11-09-2021 Calcium [Mass/Vol] 9.6 mg/dL 8.5-10.1 [facility] Work Phone: Serum or plasma creatinine m easurement (mass/volume)on 11-09-2021 Creatinine [Mass/Vol] 0.87 mg/dL 0.55-1.02 [facility] Work Phone: Comment on above: The validity of the calculated GFR & GFRAA in patients over 70 years has not been determined. Clinical correlation is essential. Serum or plasma urea nitroge n measurement (mass/volume)on 11-09-2021 Urea nitrogen [Mass/Vol] 11 mg/dL 7-18 [facility] Work Phone: Squamous epithelial cells de tection in urine sediment by light microscopyon 11-09-2021 Epithelial cells.squamous LM Ql (Urine sed) 0-5 SEEN /hpf 5-10 [facility] Work Phone: Thin prep Papanicolaou smear with manual screeningon 11-09-2021 Thin prep Papanicolaou smear with manual screening 8 5-15 [facility] Work Phone: Urine blood detectionon -0 RBC Ql (U) Negative Negative [facility] Work Phone: RBC Ql (U) 0 SEEN /hpf 0-5 [facility] Work Phone: Urine clarityon 11-09-2021 Clarity (U) Clear Clear [facility] Work Phone: Urine color determinationon 11-09-2021 Color (U) Yellow Yellow [facility] Work Phone: Urine glucose detectionon Glucose Ql (U) Normal mg/dl Normal [facility] Work Phone: Urine leukocyte esterase det ection by dipstickon 11-09-2021 Leukocyte esterase Test strip Ql (U) Negative Negative [facility] Work Phone: Urine pHon 11-09-2021 pH (U) 6.5 [pH] 5.0 - 8.0 [facility] Work Phone: Urine sediment bacteria coun t by microscopy (number/high power field)on 11-09-2021 Bacteria LM.HPF (Urine sed) [#/Area] 1 /[HPF] None Seen [facility] Work Phone: Urine specific gravity measu rementon 11-09-2021 Specific gravity (U) [Rel density] 1.005 1.002-1.03 0 [facility] Work Phone: Urobilinogen Auto test strip Ql (U)on 11-09-2021 Urobilinogen Ql (U) Normal mg/dl Normal [facility] Work Phone: .Auto Diffon 12-18-2018 Ammonia (P) [Mass/Vol] 0.40 10 3/mcL Normal 0.09-1.40 [facility] ([place]) Comment on above: Performed By: #### C BC, ADIFF, ANEU, VIDH, TSH, FT4, CMP, GFR, LIPID #### [address] [address] Basophils (Bld) [#/Vol] 0.00 10 3/mcL Normal 0.00-0.27 [facility] ([place]) Comment on above: Performed By: #### C BC, ADIFF, ANEU, VIDH, TSH, FT4, CMP, GFR, LIPID #### [address] [address] Basophils/100 WBC (Bld) 0.6 % Normal 0.0-2.5 [facility] ([place]) Comment on above: Performed By: #### C BC, ADIFF, ANEU, VIDH, TSH, FT4, CMP, GFR, LIPID #### [address] [address] Eosinophils (Bld) [#/Vol] 0.10 10 3/mcL Normal 0.00-0.65 [facility] ([place]) Comment on above: Performed By: #### C BC, ADIFF, ANEU, VIDH, TSH, FT4, CMP, GFR, LIPID #### [address] [address] Eosinophils/100 WBC (Bld) 1.6 % Normal 0.0-6.0 [facility] ([place]) Comment on above: Performed By: #### C BC, ADIFF, ANEU, VIDH, TSH, FT4, CMP, GFR, LIPID #### [address] [address] Lymphocytes (Bld) [#/Vol] 1.80 10 3/mcL Normal 0.90-4.32 [facility] ([place]) Comment on above: Performed By: #### C BC, ADIFF, ANEU, VIDH, TSH, FT4, CMP, GFR, LIPID #### [address] [address] Lymphocytes/100 WBC (Bld) 33.3 % Normal 20.0-40.0 [facility] ([place]) Comment on above: Performed By: #### C BC, ADIFF, ANEU, VIDH, TSH, FT4, CMP, GFR, LIPID #### [address] [address] Monocytes/100 WBC (Bld) 6.8 % Normal 2.0-13.0 [facility] ([place]) Comment on above: Performed By: #### C BC, ADIFF, ANEU, VIDH, TSH, FT4, CMP, GFR, LIPID #### [address] [address] Neutrophils/100 WBC (Bld) 57.7 % Normal 50.0-75.0 [facility] ([place]) Comment on above: Performed By: #### C BC, ADIFF, ANEU, VIDH, TSH, FT4, CMP, GFR, LIPID #### [address] [address] .GFRon 12-18-2018 GFR Non- >60 Normal [facility] ([place]) Comment on above: Result Comment: GFR Population mean for , Non- Americans Ages 20-29 = 116 mL/min/1.73 sq.m. Ages 30-39 = 107 mL/min/1.73 sq.m. Ages 40-49 = 99 mL/min/1.73 sq.m. Ages 50-59 = 93 mL/min/1.73 sq.m. Ages 60-69 = 85 mL/min/1.73 sq.m. Ages 70+ = 75 mL/min/1.73 sq.m. Chronic Kidney Disease: Less than 60 mL/min/1.73 square meters End Stage Renal Disease: Less than 15 mL/min/1.73 square meters Performed By: #### C BC, ADIFF, ANEU, VIDH, TSH, FT4, CMP, GFR, LIPID #### [address] [address] GFR >60 Normal [facility] ([place]) Comment on above: Result Comment: GFR Population mean for , Non- Americans Ages 20-29 = 116 mL/min/1.73 sq.m. Ages 30-39 = 107 mL/min/1.73 sq.m. Ages 40-49 = 99 mL/min/1.73 sq.m. Ages 50-59 = 93 mL/min/1.73 sq.m. Ages 60-69 = 85 mL/min/1.73 sq.m. Ages 70+ = 75 mL/min/1.73 sq.m. Chronic Kidney Disease: Less than 60 mL/min/1.73 square meters End Stage Renal Disease: Less than 15 mL/min/1.73 square meters Performed By: #### C BC, ADIFF, ANEU, VIDH, TSH, FT4, CMP, GFR, LIPID #### [address] [address] .NEUABSon 12-18-2018 Neutrophils (Bld) [#/Vol] 3.10 10 3/mcL Normal 2.25-8.10 [facility] ([place]) Comment on above: Performed By: #### C BC, ADIFF, ANEU, VIDH, TSH, FT4, CMP, GFR, LIPID #### [place] [id number] CBCon 12-18-2018 Erythrocyte distribution width (RBC) [Ratio] 12.9 % Normal 11.5-15.5 [facility] ([place]) Comment on above: Performed By: #### C BC, ADIFF, ANEU, VIDH, TSH, FT4, CMP, GFR, LIPID #### [place] [address] Hematocrit (Bld) [Volume fraction] 41.6 % Normal 34.0-46.0 [facility] ([place]) Comment on above: Performed By: #### C BC, ADIFF, ANEU, VIDH, TSH, FT4, CMP, GFR, LIPID #### [place] [address] Hemoglobin (Bld) [Mass/Vol] 14.1 G/dL Normal 12.0-16.0 [facility] ([place]) Comment on above: Performed By: #### C BC, ADIFF, ANEU, VIDH, TSH, FT4, CMP, GFR, LIPID #### [place] [id number] MCH (RBC) [Entitic mass] 32.8 pg Normal 27.0-33.0 [facility] ([place]) Comment on above: Performed By: #### C BC, ADIFF, ANEU, VIDH, TSH, FT4, CMP, GFR, LIPID #### [place] [address] MCHC (RBC) [Mass/Vol] 33.9 G/dL Normal 32.0-36.0 [facility] ([place]) Comment on above: Performed By: #### C BC, ADIFF, ANEU, VIDH, TSH, FT4, CMP, GFR, LIPID #### [address] [address] MCV (RBC) [Entitic vol] 96.6 fL Normal 80.0-99.0 [facility] ([place]) Comment on above: Performed By: #### C BC, ADIFF, ANEU, VIDH, TSH, FT4, CMP, GFR, LIPID #### [address] [address] Platelet mean volume (Bld) [Entitic vol] 9.7 fL Normal 6.6-10.5 [facility] ([place]) Comment on above: Performed By: #### C BC, ADIFF, ANEU, VIDH, TSH, FT4, CMP, GFR, LIPID #### [address] [address] Platelets (Bld) [#/Vol] 204 10 3/mcL Normal 150-450 [facility] ([place]) Comment on above: Performed By: #### C BC, ADIFF, ANEU, VIDH, TSH, FT4, CMP, GFR, LIPID #### [address] [address] RBC (Bld) [#/Vol] 4.31 10 6/mcL Normal 4.10-5.30 [facility] ([place]) Comment on above: Performed By: #### C BC, ADIFF, ANEU, VIDH, TSH, FT4, CMP, GFR, LIPID #### [address] [address] WBC (Bld) [#/Vol] 5.40 10 3/mcL Normal 4.50-10.80 [facility] ([place]) Comment on above: Performed By: #### C BC, ADIFF, ANEU, VIDH, TSH, FT4, CMP, GFR, LIPID #### [address] [address] CMPon 12-18-2018 Albumin/Globulin [Mass ratio] 1.4 {ratio} Normal 0.9-1.6 [facility] ([place]) Comment on above: Performed By: #### C BC, ADIFF, ANEU, VIDH, TSH, FT4, CMP, GFR, LIPID #### [address] [address] ALP [Catalytic activity/Vol] 70 U/L Normal 38-126 [facility] ([place]) Comment on above: Performed By: #### C BC, ADIFF, ANEU, VIDH, TSH, FT4, CMP, GFR, LIPID #### [place] [id number] ALT [Catalytic activity/Vol] 21 U/L Normal 10-49 [facility] ([place]) Comment on above: Performed By: #### C BC, ADIFF, ANEU, VIDH, TSH, FT4, CMP, GFR, LIPID #### [address] [address] Bili Total 0.3 mg/dL Normal 0.2-1.2 [facility] ([place]) Comment on above: Performed By: #### C BC, ADIFF, ANEU, VIDH, TSH, FT4, CMP, GFR, LIPID #### [place] [id number] Creatinine [Mass/Vol] 0.73 mg/dL Normal 0.50-1.20 [facility] ([place]) Comment on above: Performed By: #### C BC, ADIFF, ANEU, VIDH, TSH, FT4, CMP, GFR, LIPID #### [place] [id number] Globulin (S) [Mass/Vol] 3.1 G/dL Normal 1.5-3.8 [facility] ([place]) Comment on above: Performed By: #### C BC, ADIFF, ANEU, VIDH, TSH, FT4, CMP, GFR, LIPID #### [address] [address] Glucose [Mass/Vol] 85 mg/dL Normal 70-110 [facility] ([place]) Comment on above: Performed By: #### C BC, ADIFF, ANEU, VIDH, TSH, FT4, CMP, GFR, LIPID #### [address] [address] Protein [Mass/Vol] 7.4 G/dL Normal 6.0-8.5 [facility] ([place]) Comment on above: Performed By: #### C BC, ADIFF, ANEU, VIDH, TSH, FT4, CMP, GFR, LIPID #### [address] [address] Urea nitrogen/Creatinine [Mass ratio] 15.1 ratio Normal 10.0-22.0 [facility] ([place]) Comment on above: Performed By: #### C BC, ADIFF, ANEU, VIDH, TSH, FT4, CMP, GFR, LIPID #### [address] [address] Albumin [Mass/Vol] 4.3 G/dL Normal 3.2-4.8 [facility] ([place]) Comment on above: Performed By: #### C BC, ADIFF, ANEU, VIDH, TSH, FT4, CMP, GFR, LIPID #### [address] [address] AST [Catalytic activity/Vol] 16 U/L Normal 8-34 [facility] ([place]) Comment on above: Performed By: #### C BC, ADIFF, ANEU, VIDH, TSH, FT4, CMP, GFR, LIPID #### [address] [address] Calcium [Mass/Vol] 9.1 mg/dL Normal 8.4-10.1 [facility] ([place]) Comment on above: Performed By: #### C BC, ADIFF, ANEU, VIDH, TSH, FT4, CMP, GFR, LIPID #### [address] [address] Chloride [Moles/Vol] 108 mmol/L Normal 98-110 [facility] ([place]) Comment on above: Performed By: #### C BC, ADIFF, ANEU, VIDH, TSH, FT4, CMP, GFR, LIPID #### [address] [address] CO2 [Moles/Vol] 24 mmol/L Normal 22-32 [facility] ([place]) Comment on above: Performed By: #### C BC, ADIFF, ANEU, VIDH, TSH, FT4, CMP, GFR, LIPID #### [place] [address] Electrolyte Balance 10.0 mEq/L Normal 4.0-15.0 [facility] ([place]) Comment on above: Performed By: #### C BC, ADIFF, ANEU, VIDH, TSH, FT4, CMP, GFR, LIPID #### [place] [phone] Potassium [Moles/Vol] 4.2 mmol/L Normal 3.5-5.0 [facility] ([place]) Comment on above: Performed By: #### C BC, ADIFF, ANEU, VIDH, TSH, FT4, CMP, GFR, LIPID #### [place] [address] Sodium [Moles/Vol] 142 mmol/L Normal 136-145 [facility] ([place]) Comment on above: Performed By: #### C BC, ADIFF, ANEU, VIDH, TSH, FT4, CMP, GFR, LIPID #### [place] [address] Urea nitrogen [Mass/Vol] 11.0 mg/dL Normal 8.0-22.0 [facility] ([place]) Comment on above: Performed By: #### C BC, ADIFF, ANEU, VIDH, TSH, FT4, CMP, GFR, LIPID #### [place] [id number] FT4on 12-18-2018 Free T4 [Mass/Vol] 1.06 ng/dL Normal 0.60-1.70 [facility] ([place]) Comment on above: Result Comment: Joanie acosta note as of 02/14/17 new pediatric reference intervals were added for this test. Performed By: #### C BC, ADIFF, ANEU, VIDH, TSH, FT4, CMP, GFR, LIPID #### [place] [id number] LIPIDon 12-18-2018 Cholesterol [Mass/Vol] 157 mg/dL Normal 50-199 [facility] ([place]) Comment on above: Result Comment: Chol esterol Reference Interval: Less than 200 Desirable 200-239 Borderline high risk 240 and above High risk Performed By: #### C BC, ADIFF, ANEU, VIDH, TSH, FT4, CMP, GFR, LIPID #### [place] [id number] [place] [address] Cholesterol in HDL [Mass/Vol] 62 mg/dL High 40-59 [facility] ([place]) Comment on above: Result Comment: HDL Reference Interval: Less than 40 Low - high risk 60 or above Optimal/lowers risk Performed By: #### C BC, ADIFF, ANEU, VIDH, TSH, FT4, CMP, GFR, LIPID #### [address] [address] Cholesterol in LDL [Mass/Vol] 80 mg/dL Normal 0-129 [facility] ([place]) Comment on above: Result Comment: LDL is a calculated result and requires a 12-hr fast. LDL Reference Interval: Less than 100 Optimal 100-129 Near or above optimal 130-159 Borderline high risk 160-189 High risk 190 and above Very high risk Performed By: #### C BC, ADIFF, ANEU, VIDH, TSH, FT4, CMP, GFR, LIPID #### [address] [address] Triglyceride [Mass/Vol] 76 mg/dL Normal 3-149 [facility] ([place]) Comment on above: Result Comment: Trig lyceride Reference Interval: Less than 150 Normal 150-199 Borderline high risk 200-499 High risk 500 or higher Very high risk Performed By: #### C BC, ADIFF, ANEU, VIDH, TSH, FT4, CMP, GFR, LIPID #### [address] [address] TSHon 12-18-2018 TSH Qn 1.110 mcIU/mL Normal 0.360-3.74 0 [facility] ([place]) Comment on above: Result Comment: Plea se note as of 02/14/17 new pediatric reference intervals were added for this test. Performed By: #### C BC, ADIFF, ANEU, VIDH, TSH, FT4, CMP, GFR, LIPID #### [address] [address] VIDHon 12-18-2018 Vit. D 25-Hydroxy 33 ng/mL Normal [facility] ([place]) Comment on above: Result Comment: Inte rpretive Values Based on Total 25(OH)D: Severe Deficiency <20 ng/mL Mild to Moderate Deficiency 20-30 ng/mL Optimum Levels 30-100 ng/mL Toxicity Possible >100 ng/mL Performed By: #### C BC, ADIFF, ANEU, VIDH, TSH, FT4, CMP, GFR, LIPID #### [address] [address] CBCon 02-08-2017 Erythrocyte distribution width Auto Ratio (RBC) 12.7 % Normal 11-14.5 [facility] Comment on above: Order Comment: Campu s: M Performed By: #### L 200.70455 ####[facility] [id number] [place], [place] [address]Ef# [phone] Erythrocytes (RBC) 3.49 M/CU MM Low 3.90-5.30 [facility] Comment on above: Order Comment: Campu s: M Performed By: #### L 200.22842 ####[facility] [id number] [place], [place] [address]Py# [phone] Erythrocytes (RBC) 0.0 % Normal Less than 1 [facility] Comment on above: Order Comment: Campu s: M Performed By: #### L 200.84657 ####[facility] [id number] [place], [place] [address]Yg# [phone] Hematocrit (HCT) 34.5 % Low 35.0-47.0 [facility] Comment on above: Order Comment: Campu s: M Performed By: #### L 200.18394 ####[facility] [id number] [place], [place] [address]Mb# [phone] Hemoglobin mass conc (Bld) 11.4 g/dL Low 11.5-15.5 [facility] Comment on above: Order Comment: Campu s: M Performed By: #### L 200.89061 ####[facility] [id number] [place] [address]Vp# [phone] MCHC mass conc (RBC) 33.0 g/dL Normal 32.0-36.0 [facility] Comment on above: Order Comment: Campu s: M Performed By: #### L 200.45776 ####[facility] [id number] [place] [address]Ut# [phone] MCV 98.9 fL Normal 80.0-99.0 [facility] Comment on above: Order Comment: Campu s: M Result Comment: Repe ated and verified. Performed By: #### L 200.12031 ####[place] [address] [place], [place] [address]Ge# [phone] Platelet mean volume (PMV) 11.5 fL Normal 9.4-12.4 [facility] Comment on above: Order Comment: Campu s: M Performed By: #### L 200.05795 ####[facility] [id number] [place] [address]Yq# [phone] Platelets 125 K/CU MM Low 150-450 [facility] Comment on above: Order Comment: Campu s: M Performed By: #### L 200.15323 ####[facility] [id number] [place] [address]Fy# [phone] WBC (Leukocytes) 9.6 K/CU MM Normal 4.5-11.0 [facility] Comment on above: Order Comment: Campu s: M Performed By: #### L 200.10102 ####[facility] [id number] [place] [address]Oa# [phone] SURGon 02-07-2017 SURG ------ Patient: TATIANA PATTON SPECIMEN: [id number] Collection Date: 02/07/17- Received: 02/09/17 Status: TISH Figueroa. Dr.: Carlos Cleary MD Ph# Othr. Dr.: Patricia Ledesma CNM Material for Examination: A PLACENTA PRE-OP DIAGNOSIS: CHORIOAMNIONITIS POST-OP DIAGNOSIS: SAME SURGICAL PROCEDURE: SPONTANEOUS VAGINAL DELIVERY DIAGNOSIS A. Placenta, delivery: Third trimester villous pattern without villitis, three vesselumbilical cord, and unremarkable membranes.GROSS DESCRIPTION The specimen is received fresh and labeled with the patient's name, ID and not designatedis a beck placenta with attached cord and membranes, 445.8 g after removal of cord andmembrane and 18.4 x 17.2 x 2.5 cm. The membranes are colbert and inserted marginally. Thethree-vessel umbilical cord is 19.8 x 1.1 cm and it is inserted eccentrically and 3.5 cmfrom the placental disc margin. The surface is colbert-pink and has a normal distributionof surface vessels. The maternal surface is red-brown and intact and no areas of adherentblood clot or flattening are grossly identified. The parenchyma is red and spongy and nolesions or nodules are identified. [employer] Attendant sections are submitted in cassettes [id number] A4.SECTION SUMMARY:A1. MembraneA2. CordA3. PeripheryA4. Full-thickness sectionMICROSCOPIC DESCRIPTION 4 Kimberley slides reviewed. /ceg 02/10/2017COPIES TO: Patricia Ledesma CNM, James R MDSigned Verified/Reviewed by ESTEPHANIA LINDA MD 02/10/17 This dictation was created using voice recognition software. Phonetic and/or minor grammatical errors may exist. DIRECT OR: Missy Leo M.D. NAME: TATIANA PATTON Katerine [employer]: UNIT#: [id number] LOC: [facility] Samantha Zavala M.D. ROOM/BED: [place] [address] Alfonzo Adames Jr. M.D. : 89 AGE/SEX: 32/F ORD.Carlos Chaidez MD END OF REPORT Normal [facility] TSon 02-07-2017 ANTIBODY SCREEN Negative Normal [facility] Comment on above: Order Comment: Minim al Draw: NCampus: MPatient transfused or in the past 3 months? YESIs This Patient Going To Surgery? N BLOOD TYPE Positive Normal [facility] Comment on above: Order Comment: Minim al Draw: NCampus: MPatient transfused or in the past 3 months? YESIs This Patient Going To Surgery? N CBCon 2017 Erythrocyte distribution width Auto Ratio (RBC) 12.5 % Normal 11-14.5 [facility] Comment on above: Order Comment: Stephanie s: Kamryn Performed By: #### L 200.51475 ####[facility] [id number] [place], [place] [address]Sv# [phone] Erythrocytes (RBC) 0.0 % Normal Less than 1 [facility] Comment on above: Order Comment: Stephanie escobar: Kamryn Performed By: #### L 200.30527 ####[facility] [id number] [place], [place] [address]Be# [phone] Erythrocytes (RBC) 3.84 M/CU MM Low 3.90-5.30 [facility] Comment on above: Order Comment: Campu s: M Performed By: #### L 200.43741 ####[facility] [id number] [place], [place] [address]Vc# [phone] Hematocrit (HCT) 35.7 % Normal 35.0-47.0 [facility] Comment on above: Order Comment: Campu s: M Performed By: #### L 200.00190 ####[facility] [id number] [place] [address]By# [phone] Hemoglobin mass conc (Bld) 12.4 g/dL Normal 11.5-15.5 [facility] Comment on above: Order Comment: Campu s: M Performed By: #### L 200.74029 ####[facility] [id number] [place] [address]Xk# [phone] MCHC mass conc (RBC) 34.7 g/dL Normal 32.0-36.0 [facility] Comment on above: Order Comment: Campu s: M Performed By: #### L 200.61467 ####[facility] [id number] [place] [address]Kk# [phone] MCV 93.0 fL Normal 80.0-99.0 [facility] Comment on above: Order Comment: Campu s: M Performed By: #### L 200.01926 ####[facility] [id number] [place] [address]Vr# [phone] Platelet mean volume (PMV) 11.2 fL Normal 9.4-12.4 [facility] Comment on above: Order Comment: Campu s: M Performed By: #### L 200.19726 ####[facility] [id number] [place] [address]Ji# [phone] Platelets 126 K/CU MM Low 150-450 [facility] Comment on above: Order Comment: Campu s: M Performed By: #### L 200.61248 ####[facility] [id number] [place] [address]Ez# [phone] WBC (Leukocytes) 17.9 K/CU MM High 4.5-11.0 [facility] Comment on above: Order Comment: Stephanie escobar: Kamryn Performed By: #### L 200.34560 ####[facility] [id number] [facility] [facility] HOSPITALGato [place], [place] [address]Ku# [phone] LDSUMMon 2017 LDSUMM ====== =========OB Dateti me Report Generated by CPN: 02/09/2017 18:07 DELIVERY PERSONNEL Nurse Shell Trim Tool Setter Certified: Patricia Ledesmairculator: Akosua Tolbertthesiologist: Dheeraj LunaAnesthetist: Sanna Camarillo COOPER HELPER MATERNAL INFORMATION Delive ry Anesthesia: EpiduralMedications in Delivery: PITOCIN, PENICILLIN, TYLENOLEstimated Blood Loss (ml): 150Placenta Cultured: YesMaternal Complications: Chorioamnionitis; Maternal FeverRN Comments: VIABLE MALE, DRIED AND PLACED SKIN TO SKIN WITH MOTHER. BOTH PARENTSPLEASED WITH OF INFANT LABOR SUMMARY EDC: 02/19/2017 00:00No. Babies in Womb: 1VBAC Attempted: NoLabor Anesthesia: Epidural LABOR INFORMATION Reason for Induction: Not ApplicableOnset of Labor: 2017 19:30Complete Dilatation: 02/07/2017 04:47Oxytocin: AugmentationGroup B Beta Strep: PositiveAntibiotics # of Doses: 2Antibiotics Time of Last Dose: 02/07/2017 02:30Steroids Given: NoneReason Steroids Not Administered: Not Applicable [facility] PATIENT NAME: TATIANA PATTON [id number] [facility] [address] [place] MEDICAL REC #: [id number], [place] [address] DATE: 02/06/17DISCHARGE DATE: 02/09/17OB LDSUMM ATTENDING PHY: Carlos Cleary MDMEMBRANES Membra richard Rupture Method: SpontaneousRupture of Membranes: 2017 19:30Length of Rupture (hr): 9.90Amniotic Fluid Color: ClearAmniotic Fluid Amount: SmallAmniotic Fluid Odor: Normal STAGES OF LABOR Stage 1 hr: 9Stage 1 min: 17Stage 2 hr: 0Stage 2 min: 37Stage 3 hr: 0Stage 3 min: 7Total Time in Labor hr: 10Total Time in Labor min: 1 VAGINAL DELIVERY Episiotom y: NoneLaceration Extension: First DegreeLaceration Type: PerinealLaceration Repair: YesInitial Vag Sponge Count: 5Final Vag Sponge Count: 5Initial Vag Sharps Count: 1Final Vag Sharps Count: 2Sponge Count Correct: YesSharps Count Correct: Yes BABY A INFORMATION Delivery Date/Time: 02/07/2017 05:24Method of Delivery: VaginalBorn in Route : NoVBAC: N/AForceps: N/AVacuum Extraction: N/AShoulder Dystocia : No SHOULDER DYSTOCIA BABY A [facility] PATIENT NAME: TATIANA PATTON [id number] [facility] [address] [place] MEDICAL REC #: [id number], [place] [address] DATE: 02/06/17DISCHARGE DATE: 02/09/17OB LDSUMM ATTENDING PHY: Carlos Cleary MDInfant Delivery Date/Time: 02/07/2017 05:24 PRESENTATION /POSITION BABY A Presentation: CephalicCephalic Presentation: VertexBreech Presentation: N/A PLACENTA INFORMATION BABY A Placenta Delivery Time : 02/07/2017 05:31Placenta Method of Delivery: SpontaneousPlacenta Status: Delivered SCORES BABY A Heart Rate 1 min: >100 bpmResp Effort 1 min: Good CryReflex Irritability 1 min: Cough or Sneeze or Pulls AwayMuscle Tone 1 min: Active MotionColor 1 min: Blue/PaleResuscitation Effort 1 min: Tactile StimulationAPGAR SCORE 1 MIN: 8Heart Rate 5 min: >100 bpmResp Effort 5 min: Good CryReflex Irritability 5 min: Cough or Sneeze or Pulls AwayMuscle Tone 5 min: Active MotionColor 5 min: Body [place], Extremities BlueResuscitation Effort 5 min: N/AAPGAR SCORE 5 MIN: 9 INFANT INFORMATION BABY A Gestational Age at Delivery: 38.2Gestational Status: Early Term- 37- 38.6 WeeksInfant Outcome : LivebornInfant Condition : StableInfant Sex: Male IDENTIFICATIO N/MEDS BABY A ID Band Number: [id number] [facility] PATIENT NAME: [facility]IANA PATTON [id number] [facility] REC #: [id number], [place] [address] DATE: 02/06/17DISCHARGE DATE: 02/09/17OB LDSUMM ATTENDING PHY: Carlos Cleary Band Location: Left Leg; Left ArmRead By LandD/Nursery Nurse: Blanco FOURNIER RN/ Katerine SANTOS RNSensor Applied: YesSensor Number: 7Sensor Location : Right LegVitamin K Given : Aquamephyton 1 mg IM; Left ThighErythromycin Given: Given Both Eyes WEIGHT/LENGTH BABY A Infant Birthweight (gm): 3333Infant Weight (lb): 7Infant Weight (oz): 6Infant Length (in): 19.50Infant Length (cm): 49.53 CORD INFORMATION BABY A No. Cord Vessels: 3Nuchal Cord : N/ANuchal Cord- Other: 0True Knot: 0Cord Blood Taken: YesBanking/Donate Info: N/AInfant Suction: Mouth ASSESSMENT BABY A Physical Findings at Delivery: Within Normal LimitsInfant Respirations: Appears NormalSkin to Skin: YesSkin to Skin Time (min): 120Neonatologist/ALS Called : NoInfant Care By: Blanco FOURNIER RNTransferred To: [facility] PATIENT NAME: TATIANA PATTON [id number] MEDICAL REC #: [id number], [place] [address] DATE: 02/06/17DISCHARGE DATE: 02/09/17OB LDSUMM ATTENDING PHY: Carlos Cleary MD [facility] LDSUMM ====== =========OB Dateti me Report Generated by LISANDRA: 02/07/2017 05:01Assessment Type: Admission Assessment Patient Assessment Weight (lb): 171Weight (kg): 77.7Total Wt Gain (lb): 24Wt Gain (kg): 10.9BMI: 28.5Temperature (F): 102.9Temperature (C): 39.4Heart Rate: 112Resp: 18Systolic Blood Pressure: 117Diastolic Blood Pressure: 73Blood Pressure Mean: 90Onset of Labor: 2017 19:30Pain Scale: 0Pain Presence: IntermittentPain Type: Sharp; ContractionPain Location: AbdomenPain Related to Contraction: YesPain Comments: COOPER HELPER notifiedFrequency (min): 5'Duration (sec): 70Quality: ModerateResting Tone [place]: RelaxedDilatation (cm): 10.0Effacement (%): 100Station: 1Membranes Status: RupturedMembranes Rupture D/ ROM Method: SpontaneousAmniotic Fluid Color: ClearAmniotic Fluid Amount: SmallAmniotic Fluid Odor: NormalLevel of Consciousness: Fully ConsciousHeadache: DeniesDizziness: NoBlurred Vision: NoExtremity Numbness/Tingling : NoneExtremity Movement: Full Range of MotionNailbeds: PinkCapillary Refill: Right Lower Extremity Less than 3 seconds; Left Lower Extremity [facility] PATIENT NAME: TATIANA PATTON [id number] [facility] [address] [place] MEDICAL REC #: [id number], [place] [address] DATE: 02/06/17DISCHARGE DATE:OB LDSUMM ATTENDING PHY: Carlos Cleary MDLess than 3 secondsLower Extremities Edema: Bilateral Lower ExtremitiesLower Extremities Edema Degree: 1+Upper Extremities Edema: NoneFacial Edema: NoneDVT Risk Age: Age less than 41 yearsRespiratory Effort: UnlaboredBreath Sounds, Right: Clear and EqualCough Productivity: NoneNausea/Vomiting: DeniesBowel Patterns: Normal for PatientHemorrhoids: NoneDiet Type: Regular dietLast Meal: 2017 16:30Bladder: NondistendedFrequency of Urination: NoUrination Burning: NoVaginal Bleeding: ScantVaginal Discharge Amount: SmallVaginal Discharge Color: PinkVaginal Discharge Odor: Non-OdorousVaginal Discharge Character: ThinSkin Color: Normal for RaceSkin Temperature: WarmSkin Moisture: DryBraden Scale Sensory Perception: No Impairment- Responds to verbal commands. Hasno sensory deficit which would limit ability to feel or voice pain or discomfortBraden Scale Moisture: Occasionally Moist- Skin is occasionally moist requiring anextra linen change approximately once a dayBraden Scale Activity: Walks Occasionally- Walks occasionally during day, but forvery short distances, with or without assistance. Spends majority of each shiftin bed or chair.Dylan Scale Mobility: Slightly Limited- Makes frequent though slight changes inbody or extremity position independentlyBraden Scale Nutrition: Adequate- Eats over half of most meals. Eats a total of 4servings of protein (meat, dairy products) each day. Occasionally will refuse ameal but will usually take a supplement if offered OR is on a tube feeding or TPNregimen which probably meets most of nutritional needsBraden Scale Friction and Shear: No Apparent Problem- Moves in bed and in chairindependently and has sufficient muscle strength to lift up completely duringmove. Maintains good position in bed or chair at all timesBraden Scale Total: 19Braden Scale Risk: No Risk of Pressure Ulcer Noted at this TimeFamily Support: Significant Other supportive, at bedside frequentlyEmotional State: Calm/RelaxedCall Tello Within Reach: YesSide Rails Up: YesBed Wheels Locked: YesArm Bands Present: YesIsolation: UniversalFHR Baseline Rate (bpm) Baby A: 120Variability Baby A: Moderate 6-25 bpmAccelerations Baby A: 15X15 [facility] PATIENT NAME: TATIANA PATTON Rabia Ken MEDICAL REC #: [id number], [place] [address] DATE: 02/06/17DISCHAR DATE:ELIEZER MORIN ATTENDING PHY: Carlos Cleary MDDecelerations Baby A: EarlyAssessment Flag: Admission Assessment [facility] PATIENT NAME: TATIANA PATTON L[address]Ebony Rabia Ken MEDICAL REC #: [id number], [place] [address] DATE: 02/06/17 DATE:OB PATIENCE ATTENDING PHY: Carlos Cleary MD [facility] Frank MORIN ====== =========OB Dateti me Report Generated by CPN: 02/09/2017 18:07 DIET/ACTIVIT Y/RESTRICTIONS t: RegularActivity: Normal Activity TEACHING/ INSTRUCTIONS/REFERRALS==== =====Instructions Given To: Patient and HusbandInstructions Understood: Patient Verbalized Understanding; Support PersonVerbalized UnderstandingReferrals: None DISCHARGE INFORMATION Discha rged AMA: NoDischarge Date/Time: 2017 11:50Discharged To: HomeDischarge Provider Name: Di GiacomoeAccompanied By: husbandDischarge Method: AmbulatoryCondition: Stable FOLLOW UP INFORMATION Commen ts: to come back to hospital when contractions feel stronger or when pt feelsany chanage ADDITIONAL INSTRUCTIONS Elect ronic Copy Requested: NoElectronic Copy Provided: No [facility] PATIENT NAME: TATIANA PATTON L13[address] Rabia Ken MEDICAL REC #: [id number], [place] [address] DATE: 02/06/17DISCHARGE DATE: 02/09/17OB LDSUMM ATTENDING PHY: [facility] ====== =========OB Dateti me Report Generated by CPN: 02/09/2017 18:07 ADMISSION INFORMATION Curren t Admit Date/Time: 2017 21:15Reason for Admission: Onset of Labor; Rupture of MembranesOther Reason for Admission: contractionsEGA per Dates: 38.1Method of Arrival: AmbulatoryAdmitted From: HomeReason for Induction: Not ApplicablePrenatal Records Available: NoGeneral Admission Information: Reviewed BELONGING S/ADVANCED DIRECTIVES Valuabl es/Personal Effects: Purse/Wallet; Cell PhoneDisposition of Belongings: Kept with PatientAdvance Direct for Healthcare: No, and Wants No InformationDurable Power of Copying Machine Mechanic: NoLiving Will: NoOrgan Donor: YesPt Rights Information Given: YesPt Understands Pt Rights: Yes LEARNING ASSESSMENT Barrier s to Learning: NoneLearning Readiness: MotivatedLearns Best By: 1 to 1 InstructionLearning Needs: Pain Management; Symptoms to Report; Treatment Plan; Nutrition; Care DOMESTIC VIOLANCE SCREENING Dom Viol Threatened/Hurt: NoHx of Abuse/Neglect past 2yrs: NoFeel Unsafe Going Home: NoAddt'l Observ Indicating Abuse: No [facility] PATIENT NAME: TATIANA PATTON [id number] [facility] [address]. Ken MEDICAL REC #: [id number], [place] [address] DATE: 02/06/17DISCHARGE DATE: 02/09/17OB [facility] ATTENDING JOANA: Carlos Cleary Unable to Complete Screen: N/A, Screen Completed NUTRITIO NAL/FUNCTIONAL SCREENING Problem with Appetite >5 Days: NoChew/Swallow Difficulties: NoInappropriate Wt Gain/Loss: NoPresence Skin Breakdown/Ulcer: NoSpecial Diet: NoPt Requests Assembly And Packing Supervisor Visit: NoHx of Any of the Following?: N/ANew Diagnosis of: N/ARequires Assist w/Ambulation: NoUses Assist Device to Ambulate: NoPt Requires Help w/ADL's: No [facility] PATIENT NAME: TATIANA PATTON L[address] Rabia Ken MEDICAL REC #: [id number], [place] [address] DATE: 02/06/17DISCHARGE DATE: 02/09/17[facility] ATTENDING PHY: Carlos Cleary MD [facility] ====== =========OB Dateti me Report Generated by N: 02/07/2017 05:01 MATERNAL INFORMATION Delive ry Anesthesia: EpiduralMedications in Delivery: PITOCIN, PENICILLIN, TYLENOL LABOR SUMMARY EDC: 02/19/2017 00:00No. Babies in Womb: 1VBAC Attempted: NoLabor Anesthesia: Epidural LABOR INFORMATION Reason for Induction: Not ApplicableOnset of Labor: 2017 19:30Oxytocin: AugmentationGroup B Beta Strep: QUANTITATION FEWAntibiotics # of Doses: 2Antibiotics Time of Last Dose: 02/07/2017 02:30Steroids Given: NoneReason Steroids Not Administered: Not Applicable MEMBRAN ES Membranes Rupture Method: SpontaneousRupture of Membranes: 2017 19:30Amniotic Fluid Color: ClearAmniotic Fluid Amount: SmallAmniotic Fluid Odor: Normal PRESENTATIO N/POSITION BABY A Presentation: CephalicCephalic Presentation: Vertex [facility] PATIENT NAME: TATIANA PATTON Rabia Ken MEDICAL REC #: [id number], [place] [address] DATE: 02/06/17DISCHARGE DATE:OB MICHAELM ATTENDING PHY: Carlos Cleary MDBrecone [facility] Presentation: N/A INFANT INFORMATION BABY A Gestational Age at Delivery: 38.2Gestational Status: Early Term- 37- 38.6 Weeks IDENTIFICATI ON/MEDS BABY A ID Band Number: [id number] Number: [id number] CORD INFORMATION BABY A Banking/Donate Info: N/A [facility] PATIENT NAME: TATIANA PATTON Rabia Ken MEDICAL REC #: [id number], [place] [address] DATE: 02/06/17DISCHARGE DATE:OB LDSUMM ATTENDING PHY: [facility] ====== =========OB Dateti me Report Generated by CPN: 02/09/2017 18:07Patient Age: 32 INFORMATION EDC: 02/19/2017 00:00Gravida: 2Para: 1Term: 1Preterm: 0Spontaneous Abortions: 0Induced Abortions: 0LivinCesareans: 0VBACs: 0Ectopic: 0Multiple Births: 0Baby, Number in Womb: 1 CARE Primary Pest Control Applicator: WILSONPrepregnancy Weight (lb): 147Prepregnancy Weight (kg): 66.8Height (in): 65.0Height (cm): 165.1 ALLERGIES=== ======Medication Allergies: CODEINE/S/THROAT SWELLING (04/05/2014) COMMU NICATION Primary Language: EnglishCommunication Barrier(s): None DEMOGRAPHICS= ======== [facility] PATIENT NAME: TATIANA PATTON [id number] [facility] [address] Ken MEDICAL REC #: [id number], [place] [address] DATE: 02/06/17DISCHARGE DATE: 02/09/17OB LDSUMM ATTENDING PHY: Carlos Cleary MDAddress: [address] [address]Yzcfqiz: [id number] Work SSN: [id number] of : 1985Marital Status: MarriedSex: FemaleRace: CAUCASIANReligion: NONE DRUG AND ALCOHOL USE Alcohol: NoCigarettes: Never Smoker. [phone]: NoCocaine: NoOther Illicit Drugs: No VACCINE HISTORY Influenza Vaccine: NoPneumococcal Vaccine: NoTetanus Vaccine: NoTdap Vaccine: YesTdap Date: 12/17 LABOR and DELIVERY PLANS Mold Setter : Sarai Pinto [phone] Preference: BreastCircumcision: YesPrenatal Classes Attended: [facility] Consent: N/ACesarean Consent Signed: N/APain Management Plans: EpiduralPlans for Labor and Delivery: NoneSupport Person: NICKSupport Person Relationship: HusbandCultural/Spritual Practice: NoSpir/Cult Dietary Needs: No LIVING SITUATION/DISCHARGE PLAN [facility] PATIENT NAME: TATIANA PATTON [id number] [facility] [address]. Ken MEDICAL REC #: [id number], [place] [address] DATE: 02/06/17DISCHARGE DATE: 02/09/17[facility] ATTENDING PHY: Carlos Cleary MDLicharley Arrangements: HouseAdequate Access to:: Electric; Heat; Refrigeration; Plumbing/Running water; Phone;TransportationWIC Program: NoDischarge Pastry Decorator Person: NICKPerson to Help after Discharge: NICKCurrently Using Commun Resources: Johny Agency/Edi Programmer Analyst: Ameya Seat for Discharge: YesNeed Help to Obtain Car Seat: None RequiredAdoption Requested: No LABS Blood Type: B PositiveAntibody Screen: NegativeRubella: ImmuneRPR/VDRL: NonreactiveHIV Results: NONREACTIVENONREACTIVE: LESS THAN 1.0 INDEX VALUETHIS ASSAY DETECTS HIV p24 ANTIGEN AND ANTIBODIES TO HIV-1AND HIV-2 BY THE ADVIA DynamicOpsAUR CHIV ASSAY.Hepatitis B: NegativeGonorrhea: NegativeHematocrit: 34.5 LHemoglobin: 11.4 LMCV: 98.9 (Annotations: Repeated and verified.)Group Beta Strep: PositiveChlamydia: PositivePap Test:Urine Culture: NO GROWTH AFTER 48 HOURSVaricella titer: 2370 (Annotations: Negative<135Equivocal 135 - 165Positive >165A positive result generally indicates exposure to thepathogen or administration of specific immunoglobulins,but it is not indication of active infection or stageof disease.Performed At: [facility] [address] [place], [place] [id number] Vincent [id number])1 Hour Glucola: 105 MEDICAL HISTORY [facility] PATIENT NAME: TATIANA PATTON L[address] Rabia Ken MEDICAL REC #: [id number], [place] [address] DATE: 02/06/17DISCHARGE DATE: 02/09/17OB [facility] ATTENDING YUDITHY: Carlos Cleary MD Med Hx Diabetes: NoMed Hx Hypertension: NoMed Hx Heart Disease: NoMed Hx Autoimmune Disorder: NoMed Hx Kidney Disease/UTI: NoMed Hx Neurologic/Epilepsy: NoMed Hx Psychiatric Disorders: NoMed Hx Depression/PP Depression: NoMed Hx Hepatitis/Liver Disease: NoMed Hx Varicosities/Phlebitis: NoMed Hx Thyroid Dysfunction: NoMed Hx Trauma/Violence: NoMed Hx Blood Transfusion: NoMed Hx D (Rh) Sensitization: NoMed Hx Pulmonary (Asthma,TB): NoMed Hx Breast: NoMed Hx MIMEOGRAPHER Surgery: NoMed Hx Hospitalization/Surgery: YesMed Hx Anesthetic Complications: NoMed Hx Abnormal Pap Smear: YesMed Hx Uterine Anomaly/MONI: NoMed Hx Infertility: NoMed Hx ART Treatment: NoOther Medical Diseases: NoMed Hx Significant Family Hx: YesHx Classical CS/Uterine Surgery: NoDetails of Med/Surg Hx: TONSILS; MOM-BREAST CA; DAD-DIABETIC INFEC TIOUS HISTORY Inf Hx Gonorrhea: NoInf Hx Chlamydia: NoInf Hx Syphilis: NoInf Hx HIV/AIDS: NoInf Hx Human Papilloma Virus: NoInf Hx Pt/Partner Genital Herpes: NoInf Hx Tuberculosis/Exposure: NoInf Hx Hepatitis B,C: NoInf Hx Rash or Viral Illness: NoInf Hx Foreign Travel: NoInf Hx Elevated Temp on Admit: No GENETIC HISTORY Gen Hx Age >=35 at JAMIR: YesGen Hx Thalassemia: NoGen Hx Congenital Heart Defect: No [facility] PATIENT NAME: TATIANA PATTON [id number] [facility] [address] Ken MEDICAL REC #: [id number], [place] [address] DATE: 02/06/17DISCHARGE DATE: 02/09/17OB LDSUMM ATTENDING PHY: Carlos Cleary MDGen Hx Neural Tube Defect: NoGen Hx Down's Syndrome: NoGen Hx Rayray-Sachs: NoGen Hx Lori: NoGen Hx Familial Dysautonomia: NoGen Hx Sickle Cell Disease/Trait: NoGen Hx Hemophilia/Blood Disorder: NoGen Hx Muscular Dystrophy: NoGen Hx Cystic Fibrosis: NoGen Hx Huntingtons Chorea: NoGen Hx Mental Retardation/Autism: NoGen Hx Tested for Fragile X: NoGen Hx Other Inher/Chromosomal: NoGen Hx Maternal Metabolic DO: NoGen Hx Pt Father or FOB Defect: NoGen Hx Recurrent Loss/Stillborn: NoGen Hx Other Genetic History: NoGen Hx Drugs/Meds since LMP: YesGen Hx Medications: PEPCID, ZANTAC, PRENATALS PREVIOUS HISTORY Prev Pg 1: 04/05/14Prev Pg Gest Age1: 43Prev Pg Birthweight 1: 8#2Prev Pg Hrs Labor 1: 22 (Annotations: Data stored by CPN on behalf of user)Prev Pg Method 1: VAGPrev Pg Anesthesia Type 1: EPIPrev Pg Hospital 1: MMCPrev Pg Name 1: NAOMIE [facility] PATIENT NAME: TATIANA PATTON [id number] [facility] [address]. Ken MEDICAL REC #: [id number], [place] [address] DATE: 02/06/17DISCHARGE DATE: 02/09/17[facility] ATTENDING PHY: Carlos Cleary MD [facility] This is a preliminar y report only, as the practitioner review and authentication has not occurred. [facility] Vital Signs Date Time Vital Sign Value Performing Clinician Faci lity 10-12-2023 14:15-0400 Body temperature 97.8 [degF] Dr. Michele Madden Work Phone: [facility] 10-12-2023 14:15-0400 Diastolic blood pressure 76 mm[Hg] Dr. Michele Madden Work Phone: [facility] 10-12-2023 14:15-0400 Heart rate 86 /min Dr. Michele Madden Work Phone: [facility] 10-12-2023 14:15-0400 Respiratory rate 18 /min Dr. Michele Madden Work Phone: [facility] 10-12-2023 14:15-0400 SaO2% (BldA) [Mass fraction] 96 % Dr. Michele Madden Work Phone: [facility] 10-12-2023 14:15-0400 Systolic blood pressure 111 mm[Hg] Dr. Michele Madden Work Phone: [facility] 10-12-2023 10:29-0400 Body height 165.[address] Michele Madden Work Phone: [facility] 10-12-2023 10:29-0400 Body mass index (BMI) [Ratio] 28.6 kg/m2 Dr. Michele Madden Work Phone: [facility] 10-12-2023 10:29-0400 Body weight [address] Michele Madden Work Phone: [facility] 09-17-2023 13:34-0500 Body mass index (BMI) [Ratio] 28.3 kg/m2 Dr. Michele Madden Work Phone: [facility] 09-17-2023 13:34-0500 Body temperature 97.3 [degF] Dr. Michele Madden Work Phone: [facility] 09-17-2023 13:34-0500 Body weight 77.[address] Michele Madden Work Phone: [facility] 09-17-2023 13:34-0500 Diastolic blood pressure 80 mm[Hg] Dr. Michele Madden Work Phone: [facility] 09-17-2023 13:34-0500 Heart rate 74 /min Dr. Mihcele Madden Work Phone: [facility] 09-17-2023 13:34-0500 Respiratory rate 18 /min Dr. Michele Madden Work Phone: [facility] 09-17-2023 13:34-0500 SaO2% (BldA) [Mass fraction] 99 % Dr. Michele Madden Work Phone: [facility] 09-17-2023 13:34-0500 Systolic blood pressure 123 mm[Hg] Dr. Michele Madden Work Phone: [facility] 08-24-2023 10:00-0500 Body height 165.[address] Michele Madden Work Phone: [facility] 08-24-2023 10:00-0500 Body mass index (BMI) [Ratio] 28.1 kg/m2 Dr. Michele Madden Work Phone: [facility] 08-24-2023 10:00-0500 Body temperature 97.8 [degF] Dr. Michele Madden Work Phone: [facility] 08-24-2023 10:00-0500 Body weight 76.[address] Michele Madden Work Phone: [facility] 08-24-2023 10:00-0500 Diastolic blood pressure 78 mm[Hg] Dr. Michele Madden Work Phone: [facility] 08-24-2023 10:00-0500 Heart rate 75 /min Dr. Michele Madden Work Phone: [facility] 08-24-2023 10:00-0500 Respiratory rate 17 /min Dr. Michele Madden Work Phone: [facility] 08-24-2023 10:00-0500 SaO2% (BldA) [Mass fraction] 100 % Dr. Michele Madden Work Phone: [facility] 08-24-2023 10:00-0500 Systolic blood pressure 111 mm[Hg] Dr. Michele Madden Work Phone: [facility] 12-08-2022 09:54-0400 Body height 165.[address] Michele Madden Work Phone: [facility] 12-08-2022 09:54-0400 Body mass index (BMI) [Ratio] 28.6 kg/m2 Dr. Michele Madden Work Phone: [facility] 12-08-2022 09:54-0400 Body weight 78.[address] Michele Madden Work Phone: [facility] 12-08-2022 09:54-0400 Diastolic blood pressure 78 mm[Hg] Dr. Michele Madden Work Phone: [facility] 12-08-2022 09:54-0400 Heart rate 57 /min Dr. Michele Madden Work Phone: [facility] 12-08-2022 09:54-0400 SaO2% (BldA) [Mass fraction] 98 % Dr. Michele Madden Work Phone: [facility] 12-08-2022 09:54-0400 Systolic blood pressure 114 mm[Hg] Dr. Michele Madden Work Phone: [facility] 08-20-2022 09:32-0500 Body height 163.8 cm Phoebe Pierson APRN.MANAGER CLEANING Work Phone: [facility] 08-20-2022 09:32-0500 Body weight 77.56 kg Phoebe Pierson APRN.MANAGER CLEANING Work Phone: [facility] 03-06-2022 11:08-0400 Body temperature 98.7 [degF] TIRE FINISHER-C Gloria Christiane TIRE FINISHER Work Phone: [facility] Work Phone: 03-06-2022 11:08-0400 Diastolic blood pressure 70 mm[Hg] TIRE FINISHER-C Gloria Christiane TIRE FINISHER Work Phone: [facility] Work Phone: 03-06-2022 11:08-0400 Heart rate 57 /min TIRE FINISHER-C Gloria Christiane TIRE FINISHER Work Phone: [facility] Work Phone: 03-06-2022 11:08-0400 Respiratory rate 16 /min TIRE FINISHER-C Gloria Christiane TIRE FINISHER Work Phone: [facility] Work Phone: 03-06-2022 11:08-0400 SaO2% (BldA) [Mass fraction] 99 % TIRE FINISHER-C Gloria Christiane TIRE FINISHER Work Phone: [facility] Work Phone: 03-06-2022 11:08-0400 Systolic blood pressure 104 mm[Hg] TIRE FINISHER-C Gloria Christiane TIRE FINISHER Work Phone: [facility] Work Phone: 03-06-2022 09:33-0400 Body height 165.1 cm TIRE FINISHER-C Gloria Christiane TIRE FINISHER Work Phone: [facility] Work Phone: 03-06-2022 09:33-0400 Body mass index (BMI) [Ratio] 29.5 kg/m2 TIRE FINISHER-C Gloria Christiane TIRE FINISHER Work Phone: [facility] Work Phone: 03-06-2022 09:33-0400 Body weight 80.5 kg TIRE FINISHER-C Gloria Christiane TIRE FINISHER Work Phone: [facility] Work Phone: 01-15-2022 10:03-0400 Body mass index (BMI) [Ratio] 29.7 kg/m2 TIRE FINISHER-C Gloria Christiane TIRE FINISHER Work Phone: [facility] Work Phone: 01-15-2022 10:03-0400 Body weight 81.19 kg TIRE FINISHER-C Gloria Christiane TIRE FINISHER Work Phone: [facility] Work Phone: 01-15-2022 10:03-0400 Diastolic blood pressure 87 mm[Hg] TIRE FINISHER-C Gloria Christiane TIRE FINISHER Work Phone: [facility] Work Phone: 01-15-2022 10:03-0400 Heart rate 81 /min TIRE FINISHER-C Gloria Christiane TIRE FINISHER Work Phone: [facility] Work Phone: 01-15-2022 10:03-0400 SaO2% (BldA) [Mass fraction] 98 % TIRE FINISHER-C Gloria Christiane TIRE FINISHER Work Phone: [facility] Work Phone: 01-15-2022 10:03-0400 Systolic blood pressure 125 mm[Hg] TIRE FINISHER-C Gloria Christiane TIRE FINISHER Work Phone: [facility] Work Phone: 12-04-2021 09:49-0400 Body mass index (BMI) [Ratio] 30.4 kg/m2 TIRE FINISHER-C Gloria Christiane TIRE FINISHER Work Phone: [facility] Work Phone: 12-04-2021 09:49-0400 Body weight 83 kg TIRE FINISHER-C Gloria Christiane TIRE FINISHER Work Phone: [facility] Work Phone: 12-04-2021 09:49-0400 Diastolic blood pressure 86 mm[Hg] TIRE FINISHER-C Gloria Christiane TIRE FINISHER Work Phone: [facility] Work Phone: 12-04-2021 09:49-0400 Heart rate 82 /min TIRE FINISHER-C Gloria Christiane TIRE FINISHER Work Phone: [facility] Work Phone: 12-04-2021 09:49-0400 SaO2% (BldA) [Mass fraction] 98 % TIRE FINISHER-C Gloria Christiane TIRE FINISHER Work Phone: [facility] Work Phone: 12-04-2021 09:49-0400 Systolic blood pressure 143 mm[Hg] TIRE FINISHER-C Gloria Christiane TIRE FINISHER Work Phone: [facility] Work Phone: 12-04-2021 09:49-0400 Body height 165.1 cm TIRE FINISHER-C Gloria Christiane TIRE FINISHER Work Phone: [facility] Work Phone: 12-04-2021 09:49-0400 Body mass index (BMI) [Ratio] 30.4 kg/m2 TIRE FINISHER-C Gloria Christiane TIRE FINISHER Work Phone: [facility] Work Phone: 12-04-2021 09:49-0400 Body weight 83 kg TIRE FINISHER-C Gloria Christiane TIRE FINISHER Work Phone: [facility] Work Phone: 12-04-2021 09:49-0400 Diastolic blood pressure 86 mm[Hg] TIRE FINISHER-C Gloria Christiane TIRE FINISHER Work Phone: [facility] Work Phone: 12-04-2021 09:49-0400 Heart rate 82 /min TIRE FINISHER-C Gloria Christiane TIRE FINISHER Work Phone: [facility] Work Phone: 12-04-2021 09:49-0400 SaO2% (BldA) [Mass fraction] 98 % TIRE FINISHER-C Gloria Christiane TIRE FINISHER Work Phone: [facility] Work Phone: 12-04-2021 09:49-0400 Systolic blood pressure 143 mm[Hg] TIRE FINISHER-C Gloria Christiane TIRE FINISHER Work Phone: [facility] Work Phone: 11-09-2021 02:13-0400 Diastolic blood pressure 66 mm[Hg] [facility] Work Phone: 11-09-2021 02:13-0400 Heart rate 101 /min [facility] Work Phone: 11-09-2021 02:13-0400 Respiratory rate 18 /min [facility] Work Phone: 11-09-2021 02:13-0400 SaO2% (BldA) [Mass fraction] 97 % [facility] Work Phone: 11-09-2021 02:13-0400 Systolic blood pressure 121 mm[Hg] [facility] Work Phone: 11-09-2021 00:39-0400 Body height 165.[address] [facility] Work Phone: 11-09-2021 00:39-0400 Body mass index (BMI) [Ratio] 31.4 kg/m2 [facility] Work Phone: 11-09-2021 00:39-0400 Body temperature 97.3 [degF] [facility] Work Phone: 11-09-2021 00:39-0400 Body weight 85.[address] [facility] Work Phone: Encounters Encounter Date Encounter Type Care Provider Facility Start: 08-12-2024 End: 08-12-2024 ambulatory Michele Madden Facility:[facility] Start: 03-18-2024 End: 03-18-2024 ambulatory Michele Madden Facility:[facility] Start: 02-02-2024 ambulatory Michele Madden Facility:[facility] Start: 02-02-2024 End: 02-02-2024 ambulatory Xavier Duarte Facility:[facility] Start: 10-22-2023 End: 10-22-2023 ambulatory Michele Madden Facility:[facility] Start: 10-19-2023 Encounter for other preprocedural examination [facility] Start: 10-12-2023 Non-patient / Non-visit Dr. John Madden Work Phone: [facility] Start: 10-12-2023 End: 10-12-2023 Admission to same day surgery center Dr. Michele Madden Work Phone: [facility] Start: 10-12-2023 End: 10-12-[address] Michele Madden Work Phone: [facility] Work Phone: Start: 09-17-2023 End: 09-17-[address] Michele Madden Work Phone: [facility] Work Phone: Start: 09-17-2023 End: 09-17-2023 ambulatory [facility] Facility:[facility] Start: 09-11-2023 End: 09-11-[address] Michele Madden Work Phone: [facility] Work Phone: Start: 09-11-2023 End: 09-11-[address] Michele Madden Work Phone: [facility], [facility] Work Phone: Start: 09-11-2023 End: 09-11-2023 ambulatory Xavierbrittny Duarte Facility:[facility] Start: 08-27-2023 Non-patient / Non-visit Dr. John Madden Work Phone: [facility] Start: 08-27-2023 End: 08-27-[address] Michele Madden Work Phone: [facility] Work Phone: Start: 08-27-2023 End: 08-27-[address] Michele Madden Work Phone: [facility] Work Phone: Start: 08-24-2023 End: 08-24-[address] Michele Madden Work Phone: [facility] Work Phone: Start: 08-17-2023 End: 08-17-2023 ambulatory SHADY CARUSO Work Phone: [facility] Work Phone: Start: 08-17-2023 End: 08-17-2023 Patient encounter procedure SHADY CARUSO Work Phone: [facility] Work Phone: Start: 08-07-2023 End: 08-07-2023 ambulatory SHADY CARUSO Work Phone: [facility] Work Phone: Start: 08-07-2023 End: 08-07-2023 Patient encounter procedure SHADY CARUSO Work Phone: [facility] Work Phone: Start: 06-23-2023 End: 06-23-2023 Patient encounter procedure SHADY CARUSO Work Phone: [facility] Work Phone: Start: 01-16-2023 End: 01-16-[address] Michele Madden Work Phone: [facility] Work Phone: Start: 01-16-2023 End: 01-16-[address] [facility] Start: 12-18-2022 End: 12-18-[address] [facility] Start: 12-08-2022 End: 12-08-[address] Michele Madden Work Phone: [facility] Work Phone: Start: 12-08-2022 End: 12-08-[address] [facility] Start: 12-05-2022 End: 12-05-[address] Michele Madden Work Phone: [facility] Work Phone: Start: 12-05-2022 End: 12-05-[address] [facility] Start: 11-25-2022 End: 11-25-2022 ambulatory [facility] Work Phone: Start: 11-25-2022 End: 11-25-2022 [facility] Start: 10-17-2022 Registered Referred [facility] Start: 08-20-2022 End: 08-20-2022 ambulatory MICHELE MADDEN Facility:[facility] Start: 08-20-2022 End: 08-20-2022 Patient encounter procedure Phoebe Pierson APRN.MANAGER CLEANING Work Phone: OB/Gynecology Comment on above: Encounter for gyneco logical examination (general) (routine) without abnormal findings (Primary Dx); Vagina itching; Cystocele and rectocele with incomplete uterovaginal prolapse Start: 08-20-2022 End: 08-20-2022 Patient encounter status Phoebe Shailesh COY.MANAGER CLEANING Work Phone: OB/Gynecology Start: 07-04-2022 End: 07-04-2022 ambulatory DANII CHIU Facility:[id number] Start: 05-13-2022 End: 05-13-2022 ambulatory CHUCKY MCNAMARA Work Phone: [facility] Work Phone: Start: 05-13-2022 End: 05-13-2022 Patient encounter procedure CHUCKY MCNAMARA Work Phone: [facility] Start: 03-20-2022 End: 03-20-2022 Patient encounter procedure CHUCKY MCNAMARA Work Phone: [facility] Gastroenterology Start: 03-11-2022 End: 03-11-2022 Patient encounter procedure TIRE FINISHER-C Gloria Grande TIRE FINISHER Work Phone: [facility]Laboratory, Specimen Start: 03-06-2022 Non-patient / Non-visit TIRE FINISHER-C Rayne Grande TIRE FINISHER Work Phone: [facility] Start: 03-06-2022 End: 03-06-2022 Admission to same day surgery center TIRE FINISHER-C Gloria Grande TIRE FINISHER Work Phone: [facility]-Endoscopy Start: 02-14-2022 End: 02-14-2022 Patient encounter procedure TIRE FINISHER-C Gloria Grande TIRE FINISHER Work Phone: [facility] Start: 01-15-2022 End: 01-15-2022 Patient encounter procedure TIRE FINISHER-C Gloria Christiane TIRE FINISHER Work Phone: [facility] Gastroenterology Start: 12-13-2021 End: 12-13-2021 Patient encounter procedure TIRE FINISHER-C Gloria Christiane TIRE FINISHER Work Phone: [facility]Cat Scan, WC Start: 12-10-2021 End: 12-10-2021 Patient encounter procedure TIRE FINISHER-C Gloria Christiane TIRE FINISHER Work Phone: [facility], Specimen Start: 12-04-2021 End: 12-04-2021 Patient encounter procedure TIRE FINISHER-C Gloria Christiane TIRE FINISHER Work Phone: [facility] Start: 12-04-2021 End: 12-04-2021 Patient encounter procedure TIRE FINISHER-C Gloria Christiane TIRE FINISHER Work Phone: [facility] Gastroenterology Start: 12-04-2021 Registered Referred TIRE FINISHER-C Rebec ca Christiane TIRE FINISHER Work Phone: [facility]Cardiovascular Services Start: 11-12-2021 Patient encounter procedure TIRE FINISHER-C Gloria Christiane TIRE FINISHER Work Phone: [facility] Start: 11-12-2021 Registered Referred TIRE FINISHER-C Rebrosalino molina Christiane TIRE FINISHER Work Phone: [facility] Start: 11-09-2021 End: 11-09-2021 Emergency department patient visit [facility] Start: 2017 End: 02-09-2017 Evaluation and management of inpatient Carlos Cleary Facility:[facility] Start: 2017 Ambulatory Carlos Cleary Facility :[facility] Procedures Date Procedure Procedure Detail Performing Clinician Start: 10-12-[address] Trish Madden Work Phone: Start: 10-12-2023 Breast, Lumpectomy,S N w/ Neop[place] (Right) Dr. Michele Madden Work Phone: Start: 09-11-2023 CT of abdomen with contrast Dr. Michele Madden Work Phone: Start: 08-27-2023 Ultrasonography guid ed biopsy of breast Dr. Michele Madden Work Phone: Start: 08-17-2023 Bilateral mammography P A Jayce CARUSO Work Phone: Start: 08-17-2023 Ultrasonography of breast PA Jayce Pantoja PA Work Phone: Start: 11-25-2022 CT of abdomen with contrast Start: 03-06-2022 Colonoscopy TIRE FINISHER-C Rebec ca Christiane TIRE FINISHER Work Phone: Start: 02-14-2022 CT of abdomen with contrast TIRE FINISHER-C Gloria Christiane TIRE FINISHER Work Phone: Start: 12-13-2021 Computed tomography of abdomen and pelvis with contrast TIRE FINISHER-C Gloria Christiane TIRE FINISHER Work Phone: Start: 12-10-2021 End: 12-10-2021 Clostridium difficile detection TIRE FINISHER-C Gloria Christiane TIRE FINISHER Work Phone: Start: 12-10-2021 Enteric Bacteriology TIRE FINISHER -C Gloria Christiane TIRE FINISHER Work Phone: Start: 12-10-2021 End: 12-10-2021 Lactoferrin measurement TIRE FINISHER-C Gloria Betzaidao rne TIRE FINISHER Work Phone: Ova OR parasites identification TIRE FINISHER-C Gloria Christiane TIRE FINISHER Work Phone: Plan of Treatment Date Care Activity Detail Author Start: 04-03-2026 HPV TESTING HPV TESTING [facility] Start: 04-03-2026 PAP TESTING PAP TESTING [facility] Start: 10-12-2023 Patient discharge [facility] Start: 08-27-2023 Bx breast w/device 1st lesion ultrasound guid BX BREAST 1ST LESION US IMAG [facility] Start: 08-03-2022 DEPRESSION ASSESSMENT DEPRESSION ASSESSMENT [facility] Start: 03-11-2022 Catecholamines, fractionation measurement, urine [facility] Work Phone: Start: 03-06-2022 Colonoscopy w/biopsy single/multiple COLONOSCOPY AND BIOPSY [facility] Work Phone: Start: 03-06-2022 Egd transoral biopsy single/multiple EGD BIOPSY SINGLE/MULTIPLE [facility] Work Phone: Start: 03-06-2022 Patient discharge [facility] Work Phone: Start: 02-13-2019 Urine microalbumin profile DTAP,TDAP,TD (8 - Td or Tdap) [facility] Start: 2005 HEPATITIS C SCREENING HEPATITIS C SCREENING [facility] Start: 2005 HIV SCREENING HIV SCREENING [facility] 24 hour urine metadr enaline output [facility] Work Phone: BACTERIAL VAGINOSIS AMPLIFICATION BACTERIAL VAGINOSIS AMPLIFICATION Lab Routine Vagina itching 08/20/2022 10:58 AM EST [facility] Work Phone: FAISAL / TRICHOMONA S AMPLIFICATION FAISAL / TRICHOMONAS AMPLIFICATION Microbiology Routine Vagina itching 08/20/2022 10:58 AM EST [facility] Work Phone: Cortisol Free [Mass/ volume] in 24 hour Urine [facility] Work Phone: Cortisol Free [Mass/ volume] in Urine [facility] Work Phone: Metanephrine [Mass/v olume] in Urine [facility] Work Phone: Normetanephrine [Mas s/time] in 24 hour Urine [facility] Work Phone: Patient Education [facility] Work Phone: Patient referral [facility] Work Phone: Urine normetadrenali ne level [facility] Work Phone: Immunizations Immunization Date Immunization Notes Care Provider Hammad oh 05-08-2023 influenza, injectabl e, quadrivalent, preservative free SHADY CARUSO Work Phone: [facility] 05-16-2022 Fabricio Funez nt Booster CHUCKY MCNAMARA Work Phone: [facility] 05-05-2022 influenza, injectabl e, quadrivalent, preservative free SHADY CARUSO Work Phone: [facility] 05-05-2022 influenza, seasonal, injectable CHUCKY MCNAMARA Work Phone: [facility] 06-01-2021 Covid (Moderna) [facility] 05-10-2021 influenza, injectabl e, quadrivalent, preservative free SHADY CARUSO Work Phone: [facility] 05-10-2021 influenza, seasonal, injectable [facility] 08-28-2020 Covid (Moderna) [facility] 07-31-2020 Covid (Moderna) [facility] 05-01-2020 influenza, injectabl e, quadrivalent, preservative free SHADY CARUSO Work Phone: [facility] 05-01-2020 influenza, seasonal, injectable [facility] 05-24-2019 influenza, injectabl e, quadrivalent, preservative free SHADY CARUSO Work Phone: [facility] 05-24-2019 influenza, seasonal, injectable [facility] 12-16-2013 tetanus toxoid, redu stoney diphtheria toxoid, and acellular pertussis vaccine, adsorbed TIRE FINISHER-C Gloria Grande TIRE FINISHER Work Phone: [facility] 05-18-2009 hepatitis B vaccine, adult dosage Phoebe Pierson APRN.MANAGER CLEANING Work Phone: [facility] 05-18-2009 measles, mumps and rubella virus vaccine Phoebe Pierson APRN.MANAGER CLEANING Work Phone: [facility] 02-13-2009 tetanus toxoid, redu stoney diphtheria toxoid, and acellular pertussis vaccine, adsorbed Phoebe Pierson APRN.MANAGER CLEANING Work Phone: [facility] 07-31-2003 hepatitis B vaccine, pediatric or pediatric/adolescent dosage Phoebe Pierson APRN.MANAGER CLEANING Work Phone: [facility] 04-20-2003 diphtheria and tetan us toxoids, adsorbed for pediatric use Phoebe Pierson PATIENT CARE SECRETARY.MANAGER CLEANING Work Phone: [facility] 02-24-2003 hepatitis B vaccine, pediatric or pediatric/adolescent dosage Phoebe Pierson PATIENT CARE SECRETARY.MANAGER CLEANING Work Phone: [facility] 01-25-2003 hepatitis B vaccine, pediatric or pediatric/adolescent dosage Phoebe Pierson PATIENT CARE SECRETARY.MANAGER CLEANING Work Phone: [facility] 04-10-1997 diphtheria, tetanus toxoids and pertussis vaccine Phoebe Pierson PATIENT CARE SECRETARY.MANAGER CLEANING Work Phone: [facility] 11-01-1991 diphtheria, tetanus toxoids and pertussis vaccine Phoebe Pierson PATIENT CARE SECRETARY.MANAGER CLEANING Work Phone: [facility] 11-01-1991 trivalent poliovirus vaccine, live, oral Phoebe Pierson PATIENT CARE SECRETARY.MANAGER CLEANING Work Phone: [facility] 08-11-1988 diphtheria, tetanus toxoids and pertussis vaccine Phoebe Pierson PATIENT CARE SECRETARY.MANAGER CLEANING Work Phone: [facility] 05-27-1988 trivalent poliovirus vaccine, live, oral Phoebe Pierson PATIENT CARE SECRETARY.MANAGER CLEANING Work Phone: [facility] 1985 diphtheria, tetanus toxoids and pertussis vaccine Phoebe Pierson PATIENT CARE SECRETARY.MANAGER CLEANING Work Phone: [facility] 1985 diphtheria, tetanus toxoids and pertussis vaccine Phoebe Pierson PATIENT CARE SECRETARY.MANAGER CLEANING Work Phone: [facility] 1985 trivalent poliovirus vaccine, live, oral Phoebe Pierson PATIENT CARE SECRETARY.MANAGER CLEANING Work Phone: [facility] 1985 trivalent poliovirus vaccine, live, oral Phoebe Pierson PATIENT CARE SECRETARY.MANAGER CLEANING Work Phone: [facility] Payers Date Payer Category Payer Private Health Insurance [id number] 2023 Self-pay [id number] 2021 Private Health Insurance [id number] 2021 Private Health Insurance DAI [employer]ANDER[employer] OA [id number] 2021-Present [phone] [address] [place] [address] Open Access [id number] 2016 Unknown [id number] Private Health Insurance [id number] Unknown [id number] Unknown [facility] PACKAGE PLAN [id number] Unknown [id number] Unknown [id number] Unknown [id number] Unknown [id number] Unknown [id number] Unknown [id number] Unknown [id number] Unknown [id number] 462 Unknown [id number] 462 Social History Date Type Detail Facility [facility] Work Phone: Start: 11-09-2021 End: 10-05-2023 Tobacco smoking status NHIS Unknown if ever smoked [facility] Start: 1985 Sex Assigned At Female [facility] Start: 07-01-2022 Tobacco smoking status NHIS Never smoked tobacco [facility] Start: 07-01-2022 Tobacco use and exposure Smokeless tobacco non-user [facility] Start: 08-20-2022 Alcohol intake Current drinke r of alcohol (finding) [facility] Start: 07-01-2022 Tobacco Comment No one in hous ehold smokes [facility] Start: 1985 Sex Assigned At Not on file [facility] NEGATED: Highlighted row [facility] Goals Date Patient Goal Desired Activity /State Mental Status Date Assessment Result Facility 10-12-2023 Cognitive function Voice/Name [facility] Work Phone: 03-06-2022 Cognitive function Voice/Name [facility] Work Phone: 11-09-2021 Cognitive function Voice/Name [facility] Work Phone: Clinical Notes 07-03-2022 to 10-12-2023 Note Date & Type Note Facility 10-12-2023 Procedure note [facility] 10-12-2023 History and physical note Note Date/Time October 12, 2023 10:42am [facility] Medical Records Department [address] [place] [address] History & Physical Exam 10/12/23 1042 MR#: [id number] Acct: [id number] Name: TATIANA PATTON Rep #:[id number] : 1985 38 From: Echo Niño MD PCP: MICHELE MADDEN Status:[facility] Location: [place] [address] History and Physical Date of Admission: 10/12/23 Date of Service: 09/17/23 MR#: [id number] Acct: [id number] Name: TATIANA PATTON Rep #: [id number] : 1985 Provider: Dr. Echo Niño MD Age/Sex: 38/F Location: [facility] Status: Signed Intake Vital Signs 08/24/2409:00 09/17/2412:34 Height 5 ft 5 in 5 ft 5 in Weight: 169 lb 2 oz 170 lb BMI 28.1 28.3 BP 111/78 123/80 H Blood Pressure Location Lt brachial Rt brachial Position Sitting Sitting Respiration 17 18 Pulse 75 74 Pulse Source Monitor Monitor Temp 97.8 F 97.3 F L Temp Source Temporal Temporal Pulse Oximetry (%) 100 99 Oxygen Delivery Method room air room air Intake Visit Reasons: DISCUSS BREAST SURGERY Chief Complaint: F/U Breast biopsy 08/27/23 Decay Control Operator Required: No Is patient in pain?: No Allergies gluten Allergy (Severe, Verified 09/17/23 13:35) Abd cramps/diarrheaEnvironmental Allergies: Uncoded Allergy (Mild, Verified 09/17/23 13:35) RashSeasonal Allergies: Uncoded Allergy (Mild, Verified 09/17/23 13:35) Itchingcodeine Allergy (Verified 09/17/23 13:35) Unknown Medications cetirizine 10 mg capsule (Zyrtec) 10 mg PO DAILY 08/11/19 [History Confirmed 09/17/23] famotidine 40 mg tablet (Pepcid) 20 mg PO DAILY 08/11/19 [History Confirmed 09/17/23] calcium acetate-magnesium carb 300 mg-300 mg tablet 1 tab PO DAILY 11/09/21 [History Confirmed 09/17/23] melatonin 5 mg tablet 5 mg PO QHS 11/09/21 [History Confirmed 09/17/23] cyanocobalamin (vitamin B-12) 1,000 mcg tablet (Vitamin B-12) 1,000 mcg PO QODAY02/26/22 [History Confirmed 09/17/23] ferrous sulfate 142 mg (45 mg iron) tablet,extended release (Slow Fe) 142 mg PO DAILY 02/26/22 [History Confirmed 09/17/23] glucosamine sulf dipot chlr,msm,chond 550 mg-C 30 mg-harjinder 1 mg capsule (Glucosamine Chondroitin) 1 cap PO DAILY 02/26/22 [History Confirmed 09/17/23] lactobacillus combination no.4 3 billion cell capsule (Probiotic) 3,000 mmu cells PO DAILY 02/26/22 [History Confirmed 09/17/23] pantoprazole 40 mg tablet,delayed release (Protonix) 40 mg PO DAILY 02/26/22 [History Confirmed 09/17/23] prenat.vits,cande,deq-maiw-nuysb 1 tab PO DAILY 02/26/22 [History Confirmed 09/17/23] turmeric 100 mg-syd 150 mg-olive 50 mg-oreg 150 mg-capryl capsule cap PO 02/26/22 [History Confirmed 09/17/23] vit C,U-Pg-heuoti-lutein-zeaxan 60 mg-13.5 mg-15 mg-2 mg-6 mg capsule (Ocuvite Lutein and Zeaxanthin) 1 cap PO DAILY 02/26/22 [History Confirmed 09/17/23] vitamin D3 25 mcg (1,000 unit)-vit K2 90 mcg disintegrating tablet 1 tab PO DAILY 02/26/22 [History Confirmed 09/17/23] krill oil 500 mg capsule mg PO 08/24/23 [History Confirmed 09/17/23] PFSH Medical History (Updated 09/21/23 @ 13:[address] Echo Niño MD) Abdominal pain Alcohol use Breast mass, right Celiac disease Celiac disease Chronic diarrhea Environmental allergies Gastroesophageal reflux disease Intraductal papilloma Low iron breast pain Runny nose Sinusitis, acute Wears contact lenses Wears glasses Surgical History (Updated 09/17/23 @ 13:34 by Edna Magallanes) History of breast biopsy Hx of esophagogastroduodenoscopy Hx of tonsillectomy Social History Smoking Status: Never smoker alcohol intake: current alcohol intake frequency: holidays/special occasions only substance use type: does not use HPI HPI HPI: 39-year-old female presents status post right breast biopsy. Pathology showed intraductal papilloma with focal intraductal hyperplasia no atypia. Patient denies any further discomfort in her lateral right breast. Office bedside ultrasound able to see the clip in the lesion to allow for ultrasound-guided needle localization in the OR. ROS Breast Breast: Yes breast pain and abnormal US Gastro Gastrointestinal: Yes diarrhea and Yes acid reflux Exam Const General: cooperative, healthy appearing and no acute distress HENMT Head: normal to inspection Chest Other: Right breast: Biopsy site healing well. Bedside ultrasound able to see clip andlesion to allow for ultrasound-guided needle localization. Resp Effort & Inspection: normal respiratory effort Cardio Rate: regular rate GI Inspection: non-distended Palpation: soft Skin General: no rashes or lesions noted Neuro General: patient oriented x3 Extrem General: no clubbing, cyanosis or edema Psych Affect: normal affect Assessment and Plan Assessment and Plan (1) Intraductal papilloma of right breast: Status: Acute Plan Plan for an excisional right breast biopsy with ultrasound needle localization. Discussed procedure with patient including risk but not limited to bleeding, infection, need for further surgery. Patient was agreeable with plan. Echo Niño M.D. Pager: [phone] [facility] [address] [place] [address], [address] [place] [id number] Office: [phone] Coding Level of Care Code Off vis,est,level 3 Diagnoses Intraductal papilloma of right breast D24.1 09/21/23 1325 <Electronically signed by Echo Niño MD> Date Echo Niño MD 10/12/23 1042 <Electronically signed by Echo Niño MD> Cosigner Signature (if applicable): CC: MICHELE MADDEN; Dr. Echo Niño MD~ Signed ADDENDUM by Dr. Echo Niño MD on 10/12/23 at 1042 Addendum I have examined the patient and the H&P has been reviewed. There are no clinicalchanges since date of exam. 10/12/23 1042<Electronically signed by Echo Niño MD> Cosigner Signature (if applicable): cc: MICHELE MADDEN; Dr. Echo Niño MD ~* Signed [facility] Work Phone: 1(330) 736-163803-11-2024 [facility] Medical Records Department [address] [place] [address] History Physical Exam 10/12/23 1042 MR#: [id number] Acct: [id number] Name: TATIANA PATTON Rep #: [id number] : 1985 38 From: Echo Niño MD PCP: MICHELE MADDEN Status:[facility] Location: [place] [address] History and Physical Date of Admission: 10/12/23 Date of Service: 09/17/23 MR#: [id number] Acct: [id number] Name: TATIANA PATTON Rep #: [id number] : 1985 Provider: Dr. Echo Niño MD Age/Sex: 38/F [place] [facility] [place] Status: Signed Intake Vital Signs 08/24/2409:00 09/17/2412:34 Height 5 ft 5 in 5 ft 5 in Weight: 169 lb 2 oz 170 lb BMI 28.1 28.3 BP 111/78 123/80 H Blood Pressure Location Lt brachial Rt brachial Position Sitting Sitting Respiration 17 18 Pulse 75 74 Pulse Source Monitor Monitor Temp 97.8 F 97.3 F L Temp Source Temporal Temporal Pulse Oximetry (%) 100 99 Oxygen Delivery Method room air room air Intake Visit Reasons: DISCUSS BREAST SURGERY Chief Complaint: F/U Breast biopsy 08/27/23 Decay Control Operator Required: No Is patient in pain?: No Allergies gluten Allergy (Severe, Verified 09/17/23 13:35) Abd cramps/diarrheaEnvironmental Allergies: Uncoded Allergy (Mild, Verified 09/17/23 13:35) RashSeasonal Allergies: Uncoded Allergy (Mild, Verified 09/17/23 13:35) Itchingcodeine Allergy (Verified 09/17/23 13:35) Unknown Medications cetirizine 10 mg capsule (Zyrtec) 10 mg PO DAILY 08/11/19 [History Confirmed 09/17/23] famotidine 40 mg tablet (Pepcid) 20 mg PO DAILY 08/11/19 [History Confirmed 09/17/23] calcium acetate-magnesium carb 300 mg-300 mg tablet 1 tab PO DAILY 11/09/21 [History Confirmed 09/17/23] melatonin 5 mg tablet 5 mg PO QHS 11/09/21 [History Confirmed 09/17/23] cyanocobalamin (vitamin B-12) 1,000 mcg tablet (Vitamin B-12) 1,000 mcg PO QODAY 02/26/22 [History Confirmed 09/17/23] ferrous sulfate 142 mg (45 mg iron) tablet,extended release (Slow Fe) 142 mg PO DAILY 02/26/22 [History Confirmed 09/17/23] glucosamine sulf dipot chlr,msm,chond 550 mg-C 30 mg-harjinder 1 mg capsule (Glucosamine Chondroitin) 1 cap PO DAILY 02/26/22 [History Confirmed 09/17/23] lactobacillus combination no.4 3 billion cell capsule (Probiotic) 3,000 mmu cells PO DAILY 02/26/22 [History Confirmed 09/17/23] pantoprazole 40 mg tablet,delayed release (Protonix) 40 mg PO DAILY 02/26/22 [History Confirmed 09/17/23] prenat.vits,cande,msv-fbjx-rjebu 1 tab PO DAILY 02/26/22 [History Confirmed 09/17/23] turmeric 100 mg-syd 150 mg-olive 50 mg-oreg 150 mg-capryl capsule cap PO 02/26/22 [History Confirmed 09/17/23] vit C,U-Ly-jzbfda-lutein-zeaxan 60 mg-13.5 mg-15 mg-2 mg-6 mg capsule (Ocuvite Lutein and Zeaxanthin) 1 cap PO DAILY 02/26/22 [History Confirmed 09/17/23] vitamin D3 25 mcg (1,000 unit)-vit K2 90 mcg disintegrating tablet 1 tab PO DAILY 02/26/22 [History Confirmed 09/17/23] krill oil 500 mg capsule mg PO 08/24/23 [History Confirmed 09/17/23] PFSH Medical History (Updated 09/21/23 @ 13:[address] Echo Niño MD) Abdominal pain Alcohol use Breast mass, right Celiac disease Celiac disease Chronic diarrhea Environmental allergies Gastroesophageal reflux disease Intraductal papilloma Low iron breast pain Runny nose Sinusitis, acute Wears contact lenses Wears glasses Surgical History (Updated 09/17/23 @ 13:34 by Edna Magallanes) History of breast biopsy Hx of esophagogastroduodenoscopy Hx of tonsillectomy Social History Smoking Status: Never smoker alcohol intake: current alcohol intake frequency: holidays/special occasions only substance use type: does not use HPI HPI HPI: 39-year-old female presents status post right breast biopsy. Pathology showed intraductal papilloma with focal intraductal hyperplasia no atypia. Patient denies any further discomfort in her lateral right breast. Office bedside ultrasound able to see the clip in the lesion to allow for ultrasound- guided needle localization in the OR. ROS Breast Breast: Yes breast pain and abnormal US Gastro Gastrointestinal: Yes diarrhea and Yes acid reflux Exam Const General: cooperative, healthy appearing and no acute distress HENMT Head: normal to inspection Chest Other: Right breast: Biopsy site healing well. Bedside ultrasound able to see clip and lesion to allow for ultrasound-guided needle localization. Resp Effort Inspection: normal respiratory effort Cardio Rate: regular rate GI Inspection: non-distended Palpation: soft Skin General: no rashes or lesions noted Neuro General: patient (more content not included)...[facility] 08-27-2023 Procedure [facility]01-18-2023 NoteHNO ID: [id number] Author: Phoebe Pierson APRN.MANAGER CLEANING Service: ? Author Type: Nurse Practitioner Type: Progress Notes Filed: 08/20/2022 11:27 AM Note Text: Case Maker offered: Patient declines. Tatiana is a [...] L0 SAB0 IAB0 Ectopic0 Multiple0 Live Births0 Security Assurance Specialist History LMP: 06/20/2021 (Exact Date), Having periods Age at Menarche: Age at First : Age at Menopause: Security Assurance Specialist History Comments: Sexual Activity: Yes; Male Contraception: None PAST MEDICAL HISTORY Diagnosis Date Adrenal adenoma 2021 bilateral, asymptomatic. Diagnosed by endocrinology Celiac disease 12/2021 Laryngopharyngeal reflux Mononucleosis Multiple allergies Referred by primary care physician Dr. Michele Madden - PCP PAST SURGICAL HISTORY Procedure [...] external genitalia normal, normal Bartholin's glands, urethra, [place]'s glands, no vulvar lesions, no cervical lesions, [...] stop menstrual flow - will consider. Phoebe Pierson APRN.[facility]01-18-2023 History of Present illness Narrative* Phoebe Pierson APRN.MANAGER CLEANING - 08/20/2022 9:26 AM EST Case Maker offered: Patient declines. Tatiana is a [...] L0 SAB0 IAB0 Ectopic0 Multiple0 Live Births0 Security Assurance Specialist History LMP: 06/20/2021 (Exact Date), Having periods Age at Menarche: Age at First : Age at Menopause: Security Assurance Specialist History Comments: Sexual Activity: Yes; Male Contraception: None PAST MEDICAL HISTORY Diagnosis Date Adrenal adenoma 2021 bilateral, asymptomatic. Diagnosed by endocrinology Celiac disease 12/2021 Laryngopharyngeal reflux Mononucleosis Multiple allergies Referred by primary care physician Dr. Michele Madden - PCP PAST SURGICAL HISTORY Procedure [...] external genitalia normal, normal Bartholin's glands, urethra, [place]'s glands, no vulvar lesions, no cervical lesions, [...] stop menstrual flow - will consider. Phoebe Pierson APRN.CNP [facility] NoteHNO ID: [id number] Author: Sarah Seaman APRN.CRNA Service: ? Author Type: Nurse Surgeon Assistant Type: Anesthesia Procedure Notes Filed: 07/04/2022 4:16 PM Note Text: ANESTHESIOLOGY PROCEDURE NOTE Airway General Information Procedure Start Time/Medication Administration: 07/04/2022 3:44 PM Procedure End Time: 07/04/2022 1:44 PM Patient location during procedure: OR Timeout Performed Pre-procedure: timeout performed Consent Obtained: Yes Patient identity confirmed: arm band and care call or contact centre team leader Staffing Anesthesiologist: Mariella Martinez MD COOPER HELPER: Sarah Seaman APRN.COOPER HELPER Performed by: GUERLINE Indications and Patient Condition [...] no Airway not difficult SIGNATURE: Sarah Seaman APRN.CRNA PATIENT NAME: Tatiana Patton DATE: July 04, 2022 TIME: 4:15 PM CSN: [id number] NoteHNO ID: [id number] Author: Echo Herrera RN Service: Nursing Author [...] color), Ensure Pre-Surgery (given by ANGELIQUE or your DrTrish), fruit juice without pulp (apple/cranberry), clear tea, [...] directed. Bring copy of Living Will/Power of Copying Machine Mechanic. Do not smoke or chew. If you [...] the Surgery Center. UPON ARRIVAL: Access to [facility] (the glass building) is located on [address] [employer] parking is available for your convenience from [...] updated instructions for the morning of your procedure.[facility]12-01-2022 NoteHNO ID: [id number] Author: Ramandeep Mcgee APRN.OSWALD Service: ? Author Type: Nurse Practitioner Type: [...] updated instructions for the morning of your procedure.[facility]Reason for visit Narrative* Chief Complaint COVID-19 RIGHT BREAST MASS [facility] Work Phone: Chief complaint+Reason for visit Narrative* Chief Complaint COVID-19 RIGHT BREAST MASS BIRADS 4 LUMP IN RIGHT BREAST LUMP IN RIGHT BREAST [facility] for [facility] Chief complaint+Reason for visit Narrative* Chief Complaint COVID-19 RIGHT BREAST MASS BIRADS 4 LUMP IN RIGHT BREAST LUMP IN RIGHT BREAST ATTENTION TO ADRENALS W/HOUNSFIELD UNITS Reason for Visit Breast mass, [facility] Work Phone: Chief complaint+Reason for visit Narrative* Chief Complaint COVID-19 RIGHT BREAST MASS BIRADS 4 LUMP IN RIGHT BREAST LUMP IN RIGHT BREAST ATTENTION TO ADRENALS W/HOUNSFIELD UNITS DISCUSS BREAST SURGERY U/S wire loc right excisional Breas U/S wire loc right excisional Breas Reason for Visit Intraductal papillom a of right breast [facility] Work Phone: Discharge summary Author Echo Niño [facility] October 12, 2023 1:15pm Note Date/Time October 12, 2023 1:1 5pm [facility] Medical Records Department [address] [place] [address] Instructions for Home/Discharge Instructions 10/12/23 1314 MR#: [id number] Acct: [id number] Name: TATIANA PATTON Rep #:[id number] 6 : 1985 38 From: Echo Niño MD PCP: MICHELE MADDEN Status:[facility] Discharge Instructions Diet Discharge Diet: No restrictions Activity Discharge Activity: May Not Drive (for 2-3 days or while taking narcotic pain meds.) May shower in (days): 1 Lifting Restrictions: 10 pounds for 1 week. Dressing / Incision Call your doctor if your incision/area has: Continuous Slow Oozing, Sudden Increased Bleeding, Increased Pain/ Swelling and Increased Redness Call your doctor if you observe: Fever of 101 or Higher Suture Line Care: Avoid Pulling/Pushing and Avoid Pinching/Bending Remove Dressing in: 1 day Additional Dressing/Incision Instructions:: Remove bulky dressing tomorrow. Mayleave op-site dressing for 3-4 days. Okay to remove Steri-Strips from the breastincision in 7 to 10 days. Follow Up Care Please Follow Up With: Echo Niño MD When: Please call [phone] for an appointment to be seen in 2 week. Test Results: Test results from this visit will be discussed in further detail at your follow- up appointment, if applicable. Discharge Plan Admission Attending Provider: Echo Niño Primary Care Provider: Michele Madden Discharge Orders/Prescriptions Prescriptions: Continued famotidine [Pepcid] 40 mg tablet 20 mg PO BID krill oil 500 mg capsule 1,000 mg PO DAILY calcium acetate-magnesium carb 300-300 mg Tablet 1 tab PO DAILY Rx Instructions: 500mg-250 melatonin 5 mg Tablet 5 mg PO QHS cyanocobalamin (vitamin B-12) [Vitamin B-12] 1,000 mcg Tablet 1,000 mcg PO QODAY vitamin D3-vitamin K2 1000-90 unit-mcg Tablet,Disintegrating 1 tab PO DAILY Slow Fe 142 mg (45 mg iron) Tablet Extended Release 142 mg PO DAILY Probiotic 3 billion cell Capsule 3,000 mmu cells PO DAILY Rx Instructions: administer with a meal loratadine [Claritin] 10 mg tablet 10 mg PO DAILY multivitamin Tablet 1 tab PO DAILY slippery elm bark 400 mg capsule 400 mg PO DAILY Referrals / Follow Up: Michele Madden MD [Primary Care Provider] - Disposition Disposition (needs filled in before D/C Order can be placed): Home, Self Care 10/12/23 1315<Electronically signed by Echo Niño MD>Echo Niño MD CC: MICHELE MADDEN ~ Signed [facility] Work Phone: Evaluation noteNo assessment information available [facility] Work Phone: Evaluation note* Diagnosis Onset Date Resolution Status Abdominal pain acute Gastroesophageal reflux disease acute Chronic diarrhea [facility] Work Phone: Evaluation note* Diagnosis Onset Date Resolution Status Abdominal pain acute Gastroesophageal reflux disease noneactive Chronic diarrhea chronic Celiac disease acute Gastroesophageal reflux disease acute [facility] Work Phone: Evaluation note* Diagnosis Onset Date Resolution Status Celiac disease chronic Chronic diarrhea chronic Gastroesophageal reflux disease [facility] Work Phone: Evaluation note* Diagnosis Encounter for gynecological examination (general) (routine) without abnormal findings- Primary Vagina itching Pruritus of genital organs Cystocele and rectocele with incomplete uterovaginal prolapse [facility] Diagnosis Onset Date Resolution Status Celiac disease [facility] Work Phone: Evaluation note* Diagnosis Onset Date Resolution Status Breast mass, right acute [facility] Work Phone: Evaluation note* Diagnosis Onset Date Resolution Status Intraductal papilloma of right breast acute [facility] Work Phone: Hospital Discharge instructions Additional Instructions See your primary care physician within next 5 to 7 days to have a repeat potassium level and further [facility] for [facility] Work Phone[facility] Phone[facility] Work Phone: [facility] Work Phone: Summary Purpose Family History No Family History Records FoundNo Family History Records FoundNo Family History Records FoundNo Family History Records FoundNo Family History Records Found Advance Directives No Advanced Directives Records Found Advance Directive Response Recorded Date/ Time Living Will No November 09, 2021 12:41am Power of Copying Machine Mechanic No November 09 12:41am Advance Directive Response Recorded Date/ Time Living Will No February 26, 2022 12:42pm Power of Copying Machine Mechanic No February 26 12:42pm Advance Directive Response Recorded Date/ Time Living Will No February 26, 2022 11:42am Power of Copying Machine Mechanic No February 26 11:42am Advance Directive Response Recorded Date/ Time Living Will No October 05, 2023 12:40pm Power of Copying Machine Mechanic No October 04 12:40pm Chief Complaint and Reason for Visit Chief Complaint 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 Chief Complaint 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 Acid reflux Reason for Visit Abdominal pain Gastroesophageal reflux disease Chronic diarrhea Chief Complaint 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 Acid reflux E ORDERS Reason for Visit Abdominal pain Gastroesophageal reflux disease Chronic diarrhea Chief Complaint 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 Acid reflux E ORDERS ABDOMINAL PAIN Reason for Visit Abdominal pain Gastroesophageal reflux disease Chronic diarrhea Chief Complaint 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 Acid reflux E ORDERS ABDOMINAL PAIN [address] OF ABDOMEN Reason for Visit Abdominal pain Gastroesophageal reflux disease Chronic diarrhea Celiac disease Gastroesophageal reflux disease Chief Complaint INTERMITENT PALPITAT IONS Acid reflux E ORDERS ABDOMINAL PAIN [address] OF ABDOMEN 24 HR URINE SAMPLE Reason for Visit Abdominal pain Gastroesophageal reflux disease Chronic diarrhea Celiac disease Gastroesophageal reflux disease Chief Complaint ABNORMAL CT OF ABDOM EN 24 HR URINE SAMPLE 2 WK FU E ORDER Reason for Visit Celiac disease Chronic diarrhea Gastroesophageal reflux disease Chief Complaint 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 BENIGN NEOPLASM OF LEFT ADRENAL GLAND Reason for Visit Celiac disease Chief Complaint COVID-19 Additional Source Comments INFORMATION SOURCE (unrecogn ized section and content) DATE CREATED AUTHOR 01/27/2018 [facility] DATE CREATED AUTHOR AUTHOR'S ORGANIZ ATION 09/12/2019 [facility] ([place]) DATE CREATED AUTHOR AUTHOR'S ORGANIZ ATION 07/05/2022 [facility] DATE CREATED AUTHOR AUTHOR'S ORGANIZ ATION 08/26/2022 [facility] DATE CREATED AUTHOR AUTHOR'S ORGANIZ ATION 09/06/[address] [facility] Goals (unrecognized section and content) Goals may be documented in a n alternate sectionGoals may be documented in an alternate sectionGoals may be documented in an alternate sectionGoals may be documented in an alternate sectionGoals may be documented in an alternate sectionGoals may be documented in an alternate sectionGoals may be documented in an alternate sectionGoals may be documented in an alternate sectionGoals may be documented in an alternate sectionGoals may be documented in an alternate sectionGoals may be documented in an alternate sectionGoals may be documented in an alternate section Source Comments (unrecognize d section and content) In the event this informatio n is protected by the Federal Confidentiality of Alcohol and Drug Abuse Patient Records regulations: The Federal rules restrict any use of the information to criminally investigate or prosecute any alcohol or drug abuse patient.[facility] Reason for Visit (unrecogniz ed section and content) Reason Comments [facility] Teams (unrecognized sec tion and content) Team Status: Active Member Role Status Dates Dr. Michele Madden MD Primary Care Provider Active Team Status: Inactive Member Role Status Dates Gloria Grande TIRE FINISHER, TIRE FINISHER-C Attending Provider Active Dr. Michele Madden MD Primary Care Provider, Referring Pr ovid Active Team Status: Active Member Role Status Dates Dr. Michele Madden MD Primary Care Provider Active Health Risk Assessment Attending Provider, Referring P rovider Active Team Status: Inactive Member Role Status Dates Dr. Michele Madden MD Primary Care Provider Active Dr. Xavier Duarte DO Attending Provider, Referring Provider Active Team Status: Active Member Role Status Dates Dr. Michele Madden MD Primary Care Provider Active Gloria Grande TIRE FINISHER, TIRE FINISHER-C Attending Provider, Referrin g Provider Active Wood Miller Relationship Specialty Start Date End Date Michele Madden MD [address] [place] [address] PCP - General Family Medicine 07/04/22 Team Status: Inactive Member Role Status Dates Dr. Michele Madden MD Primary Care Provider Active Gloria Grande TIRE FINISHER, TIRE FINISHER-C Attending Provider, Referrin g Provider Active Team Status: Active Member Role Status CHUCKY MCNAMARA Primary Care Provider Active Team Status: Inactive Member Role Status Dates NAIMA LOCKE Primary Care Provider Active Dr. Xavier Duarte DO Attending Provider, Referring Provider Active Team Status: Inactive Member Role Status Dates Jayce Pantoja PA, PA Attending Provider Active Team Status: Inactive Member Role Status Dates NAIMA LOCKE Primary Care Provide r, Attending Provider, Referring Provider Active Team Status: Inactive Member Role Status Dates Dr. Echo Niño MD Attending Provider Active Dr. Michele Madden MD Primary Care Provider, Referring Pr ovider Active Team Status: Active Member Role Status Dates Dr. Michele Madden MD Primary Care Provider Active Dr. Echo Niño MD Attending Provi william, Referring Provider, Other Provider Active Team Status: Inactive Member Role Status Dates Dr. Michele Madden MD Primary Care Provider Active Dr. Echo Niño MD Attending Provider, Referring Provider Active Team Status: Inactive Member Role Status Dates Dr. Xavier Duarte DO Attending Provider, Referring Provider Active Dr. Michele Madden MD Primary Care Provider Active Team Status: Inactive Member Role Status Dates Dr. Michele Madden MD Primary Care Provider, Referring Pr ovider Active Dr. Echo Niño MD Attending Provider Active Team Status: Active Member Role Status Dates Dr. Michele Madden MD Primary Care Provider, Referring Pr ovider Active Dr. Echo iNño MD Attending Provider, Other Pro vider Active FOR RECORDS PERTAINING TO PATIENTS WHO ARE [...] BE BASED ON THE PRIMARY CLINICAL RECORDS. [facility]. provides no warranty or guarantee of the accuracy or completeness of information in this document.
[2025-01-20 11:18] LABS: Ferritin 120 ng/mL (22-378); Vitamin D,25 Hydroxy 62.9 ng/mL (30-100)
[2025-01-20 12:09] LABS: Iron 63 ug/dL (50-170)
== END | disposition home or self-care (01) ==
PROVIDERS: PCP Family Medicine; Referring Provider Internal Medicine Endocrinology, Diabetes & Metabolism; Visit Provider Internal Medicine Endocrinology, Diabetes & Metabolism
DX: D35.02 Benign neoplasm of left adrenal gland (principal); D50.9 Iron deficiency anemia, unspecified; E04.0 Nontoxic diffuse goiter; E55.9 Vitamin D deficiency, unspecified
CPT/HCPCS: 36415; 82306; 82728; 83540; 84439; 84443

== ENCOUNTER → 2025-02-08 | Outpatient (CLI) | payer OTHER, SELFPAY ==
[2025-02-08 12:46] LABS: 24HR. Urine Creatinine 1422.5 mg/24 hr (740.0-1540.0)
[2025-02-12 09:08] LABS: Cortisol, Free 24Ur 22 ug/24 hr (6-42); Metanephrine, Ur 20 ug/L (Undefined); Metanephrines, 24Ur 50 ug/24 hr (36-209); Normetanephrines, 24Ur 205 ug/24 hr (131-612); Normetanephrines, Ur 83 ug/L (Undefined)
== END | disposition home or self-care (01) ==
LOC: LAB 08:43 → LABSPEC 08:44
PROVIDERS: PCP Family Medicine; Referring Provider Internal Medicine Endocrinology, Diabetes & Metabolism; Visit Provider Internal Medicine Endocrinology, Diabetes & Metabolism
DX: D35.02 Benign neoplasm of left adrenal gland (principal); D50.9 Iron deficiency anemia, unspecified; E04.0 Nontoxic diffuse goiter; E55.9 Vitamin D deficiency, unspecified
CPT/HCPCS: 81050; 82530; 82570; 83835